=== PATIENT | male | born 1945 | race Caucasian/White ===

== ENCOUNTER 2022-08-20 00:58 | Outpatient (REF) | payer MEDICARE, MEDICAID, SELFPAY ==
[2022-08-20 12:27] LABS: Erythrocyte Sedimentation Rate 5 mm/hr (<=20)
[2022-08-20 17:25] LABS: Prostate Specific Antigen Scrn 1.06 ng/mL (<=4.00)
[2022-08-20 21:25] LABS: Alanine Aminotransferase 22 U/L (16-63); Albumin Globulin Ratio 1.1; Albumin Level 3.5 g/dL (3.4-5.0); Alkaline Phosphatase 46 U/L (46-116); Aspartate Amino Transferase 17 U/L (15-37); Bilirubin Direct 0.2 mg/dL (0.0-0.2); Bilirubin Total 1.1 mg/dL (0.2-1.0); Globulin 3.1 g/dL; Thyroid Stimulating Hormone 2.118 uIU/mL (0.358-3.740); Total Protein 6.6 g/dL (6.4-8.2); Uric Acid 4.6 mg/dL (3.5-7.2)
[2022-08-20 23:43] LABS: Estimated Average Glucose 146 mg/dL; Glycohemoglobin A1C 6.7 % (4.5-6.2)
== END 2022-08-20 00:59 ==
LOC: LAB 00:58
DX: E11.22 Type 2 diabetes mellitus with diabetic chronic kidney disease (principal); N18.9 Chronic kidney disease, unspecified
CPT/HCPCS: 36415; 80076; 83036; 83880; 84443; 84550; 85652; G0103

== ENCOUNTER 2023-01-05 01:10 | Outpatient (REF) | payer MEDICARE, MEDICAID, SELFPAY ==
[2023-01-05 08:13] LABS: Estimated Average Glucose 143 mg/dL; Glycohemoglobin A1C 6.6 % (4.5-6.2)
[2023-01-05 08:25] LABS: Alanine Aminotransferase 24 U/L (16-63); Albumin Globulin Ratio 1.1; Albumin Level 3.8 g/dL (3.4-5.0); Alkaline Phosphatase 55 U/L (46-116); Aspartate Amino Transferase 14 U/L (15-37); Bilirubin Direct 0.2 mg/dL (0.0-0.2); Bilirubin Total 1.2 mg/dL (0.2-1.0); Chol HDL Ratio 2.5; Cholesterol 146 mg/dL (<=200); Globulin 3.5 g/dL; HDL Cholesterol 58 mg/dL (40-60); LDL Cholesterol Calculated 64.8 mg/dL; Total Protein 7.3 g/dL (6.4-8.2); Triglycerides 116 mg/dL (<=150); VLDL CHOLESTEROL 23.2 mg/dL
[2023-01-05 08:36] LABS: Erythrocyte Sedimentation Rate 18 mm/hr (<=20)
== END 2023-01-05 01:11 | disposition home or self-care (01) ==
LOC: LAB 01:10
PROVIDERS: Visit Provider Internal Medicine
DX: I10 Essential (primary) hypertension (principal)
CPT/HCPCS: 36415; 80061; 80076; 83036; 83880; 85652

== ENCOUNTER 2023-02-23 09:24 | Outpatient (REF) | payer MEDICARE, MEDICAID, SELFPAY ==
[2023-02-23 10:22] LABS: Basophils Absolute Auto 0.1 10^3/uL (0.0-0.1); Basophils Percent Auto 1.2 % (0.2-2.0); Eosinophils Absolute Auto 0.4 10^3/uL (0.0-0.7); Eosinophils Percent Auto 6.6 % (0.9-7.0); Hematocrit 44.5 % (42.0-54.0); Hemoglobin 14.6 g/dL (14.0-18.0); Immature Granulocytes Abs Auto 0.02 10^3/uL (0.00-0.03); Immature Granulocytes Pct Auto 0.3 % (0.0-0.5); Lymphocytes Absolute Auto 1.1 10^3/uL (1.2-3.8); Lymphocytes Percent Auto 19.1 % (20.5-60.0); Mean Corpuscular HGB Conc 32.8 g/dL (29.9-35.2); Mean Corpuscular Hemoglobin 31.5 pg (25.9-34.0); Mean Corpuscular Volume 96.1 fL (80.0-94.0); Mean Platelet Volume 8.9 fL (9.5-13.5); Monocytes Absolute Auto 0.4 10^3/uL (0.3-0.8); Monocytes Percent Auto 7.4 % (1.7-12.0); Neutrophils Absolute Auto 3.9 10^3/uL (1.4-6.5); Neutrophils Percent Auto 65.4 % (43.0-75.0); Platelet Count 206 10^3/uL (150-450); Red Blood Count 4.63 10^6/uL (4.70-6.10); Red Cell Distribution Width 13.4 % (11.0-15.0); White Blood Count 5.9 10^3/uL (4.0-11.0)
[2023-02-23 10:56] LABS: Alanine Aminotransferase 26 U/L (16-63); Anion Gap 13.8; Aspartate Amino Transferase 18 U/L (15-37); Carbon Dioxide 25.5 mmol/L (21.0-32.0); Chloride 103 mmol/L (98-107); Chol HDL Ratio 2.2; Cholesterol 120 mg/dL (<=200); Estimated GFR (African America >60 (>=60); Estimated GFR (Non-African Ame >60 (>=60); HDL Cholesterol 55 mg/dL (40-60); LDL Cholesterol Calculated 43.8 mg/dL; Potassium 4.3 mmol/L (3.5-5.1); Sodium 138 mmol/L (136-145); Triglycerides 106 mg/dL (<=150); VLDL CHOLESTEROL 21.2 mg/dL
[2023-02-23 12:04] LABS: Estimated Average Glucose 143 mg/dL; Glycohemoglobin A1C 6.6 % (4.5-6.2)
== END 2023-02-23 09:25 | disposition home or self-care (01) ==
LOC: LAB 09:24
PROVIDERS: PCP Internal Medicine; Visit Provider Internal Medicine
DX: I10 Essential (primary) hypertension (principal)
CPT/HCPCS: 36415; 80051; 80061; 82565; 83036; 84450; 84460; 84520; 85025

== ENCOUNTER 2023-07-01 01:20 | Outpatient (REF) | payer MEDICARE, MEDICAID, SELFPAY ==
--- OUTSIDE RECORDS SUMMARY | 2023-07-01 01:23 | XMS_ITS | CCD ---
Author Organization [facility] Care Team Providers Care Senior Payroll Manager Name Role Phone WaleJR Eliud Primary Care Provider MD Ana María Valiente Attending Provider ALLEN FUNK Attending Unavailable Medications Current Medications Medication Drug Class(es) Dates Sig (Normalized) Sig (Original) Acetaminophen (2 sources) Start: 03-03-2019 take 2 tablets by mouth every four hours Acetaminophen Active 2 TAB PO Q4H March 03, 2019 5:56pm acetaminophen 325 mg / HYDROcodone bitartrate 5 mg oral tablet (2 sources) Opioid Agonist Start: 03-03-2019 take 0.5 tablet by mouth every six hours Hydrocodone-Aceta minophen Active 0.5 TAB PO Q6H March 03, 2019 5:56pm albuterol 0.83 mg/ml inhalation solution (2 sources) beta2-Adrenergic Agonist Start: 03-03-2019 take 1 [IU] by inhalation every six hours Albuterol Sulfate Active 1 UNIT INHALATION Q6H March 03, 2019 5:56pm docusate sodium 100 mg oral tablet (2 sources) Start: 03-03-2019 take 100 mg by mouth twice daily Docusate Sodium Active 100 MG PO Twice daily March 03, 2019 5:56pm DULoxetine 60 mg delayed release oral capsule (2 sources) Serotonin and Norepinephrine Reuptake Inhibitor Start: 03-03-2019 take 60 mg by mouth once daily at bedtime Duloxetine Active 60 MG PO Daily at bedtime March 03, 2019 5:56pm dutasteride 0.5 mg oral capsule (2 sources) 5-alpha Reductase Inhibitor Start: 03-03-2019 take 0.5 mg by mouth once daily Dutasteride Active 0.5 MG PO Daily March 03, 2019 5:56pm empagliflozin 10 mg oral tablet (2 sources) Sodium-Glucose Cotransporter 2 Inhibitor Start: 03-03-2019 take 10 mg by mouth once daily Empagliflozin Active 10 MG PO Daily March 03, 2019 5:56pm 12 hr guaiFENesin 600 mg extended release oral tablet (2 sources) Start: 03-03-2019 take 2 tablets by mouth twice daily Guaifenesin (Mucinex) 600 mg Tablet Extended Release 12hr Active 2 TAB PO Twice daily March 03, 2019 5:56pm lisinopril 20 mg oral tablet (2 sources) Angiotensin Converting Enzyme Inhibitor Start: 03-03-2019 take 20 mg by mouth twice daily Lisinopril Active 20 MG PO Twice daily March 03, 2019 5:56pm magnesium hydroxide 80 mg/ml oral suspension (2 sources) Start: 03-03-2019 take 1 mL by mouth once daily Magnesium Hydroxide (Milk Of Magnesia) 400 mg/5 mL Suspension Active 30 ML PO Daily March 03, 2019 5:56pm Czemj-Hltsp-Fetul-Sibe justino Fir (Vicks Vapoinhaler) Inhaler (2 sources) Start: 03-03-2019 Eeqwq-Iigwp-Wecas -Siberian Fir (Vicks Vapoinhaler) Inhaler Active 1 SPRAY INTRANASAL As Directed March 03, 2019 5:56pm 24 hr mirabegron 50 mg extended release oral tablet (2 sources) beta3-Adrenergic Agonist Start: 03-03-2019 take 50 mg by mouth once daily Mirabegron Active 50 MG PO Daily March 03, 2019 5:56pm nitroglycerin 0.4 mg sublingual tablet (2 sources) Nitrate Vasodilator Start: 03-03-2019 Nitroglycerin Active 0.4 MG SUBLINGUAL EVERY 5 MINUTES March 03, 2019 5:56pm ondansetron 4 mg disintegrating oral tablet (2 sources) Serotonin-3 Receptor Antagonist Start: 03-03-2019 take 1 tablet by mouth every six hours Ondansetron Active 1 TAB PO Q6H March 03, 2019 5:56pm microencapsulated potassium chloride 20 meq extended release oral tablet (2 sources) Start: 03-03-2019 take 40 mEq by mouth once daily Potassium Chloride Active 40 MEQ PO Daily March 03, 2019 5:56pm rosuvastatin calcium 20 mg oral tablet (2 sources) HMG-CoA Reductase Inhibitor Start: 03-03-2019 take 20 mg by mouth once daily at bedtime Rosuvastatin Active 20 MG PO Daily at bedtime March 03, 2019 5:56pm tamsulosin hydrochloride 0.4 mg oral capsule (2 sources) alpha-Adrenergic Floridalma Start: 03-03-2019 take 0.4 mg by mouth once daily Tamsulosin Active 0.4 MG PO Daily March 03, 2019 5:56pm Completed/Discontinued Medications Medication Drug Class(es) Dates Sig (Normalized) Sig (Original) apixaban 5 mg oral tablet (2 sources) Factor Xa Inhibitor Start: 03-03-2019 End: 03-08-2019 take 1 tablet by mouth twice daily Apixaban (Eliquis) 5 mg tablet Discontinued 5 MG PO Twice daily March 03, 2019 5:56pm March 08, 2019 2:30pm Results Test Name Value Interpretation Reference Range Facility Superficial Wound Cultureon 08-28-2021 Superficial Wound Culture ORGANISM: Staphylococcus aureus (O:STAAUR) Quantity of Growth Moderate Growth Aerobic HERIBERTO Charge (PC45) SUSCEPTIBILITY ORGANISM: O:STAAUR ANTIBIOTIC INTERPRETATION HERIBERTO Amoxacillin/K Clavulanate S <4/2 Ampicillin KEILY >8 Ampicillin/Sulbactam S <8/4 Azithromycin S <2 Cefazolin S <8 Ceftaroline S <0.5 Ceftriaxone S <8 Ciprofloxacin S <1 Clindamycin S <0.5 Daptomycin S <1 Erythromycin S <0.25 Levofloxacin S <1 Linezolid S 4 Meropenem S <4 Oxacillin S 0.5 Penicillin KEILY >8 Piperacillin/Tazobactam S <4 Rifampin S <1 Tetracycline S <4 Trimethoprim/Sulfamethoxazol e S <0.5/9.5 Vancomycin S 1 S = SUSCEPTIBLE I = INTERMEDIATE R = RESISTANT BLANK = DATA NOT AVAILABLE, OR DRUG NOT ADVISABLE OR TESTED R* = RESISTANCE DUE TO EXTENDED SPECTRUM BETA-LACTAMASES ESBL = EXTENDED SPECTRUM BETA-LACTAMASE TFG = THYMIDINE-DEPENDENT STRAIN KEILY = BETA-LACTAMASE POSITIVE IB = INDUCIBLE BETA-LACTAMASE. APPEARS IN PLACE OF 'S' WITH SPECIES KNOWN TO POSSESS INDUCIBLE BETA-LACTAMASES. POTENTIALLY THEY MAY BECOME RESISTANT TO ALL B-LACTAM DRUGS. PERFORMED BY: [place] [address] PATHOLOGIST COLLAR STITCHER MERVIN ADHIKARI M.D. [facility] Comment on above: Performed By: #### CUSUP #### [address] Bacteria identified Aer cx N om (Unsp spec)Ordered By: Ana María Valiente on 08-21-2021 Superficial Wound Culture Staphylococcus aureus [facility] Superficial Wound Cultureon 08-21-2021 Superficial Wound Culture ORGANISM: Staphylococcus aureus (O:STAAUR) Quantity of Growth Heavy Growth Aerobic HERIBERTO Charge (PC45) SUSCEPTIBILITY ORGANISM: O:STAAUR ANTIBIOTIC INTERPRETATION HERIBERTO Amoxacillin/K Clavulanate S <4/2 Ampicillin KEILY >8 Ampicillin/Sulbactam S <8/4 Azithromycin S <2 Cefazolin S <8 Ceftaroline S <0.5 Ceftriaxone S <8 Ciprofloxacin S <1 Clindamycin S <0.5 Daptomycin S <1 Erythromycin S <0.25 Levofloxacin S <1 Linezolid S <2 Meropenem S <4 Oxacillin S <0.25 Penicillin KEILY >8 Piperacillin/Tazobactam S <4 Rifampin S <1 Tetracycline S <4 Trimethoprim/Sulfamethoxazol e S <0.5/9.5 Vancomycin S <0.5 S = SUSCEPTIBLE I = INTERMEDIATE R = RESISTANT BLANK = DATA NOT AVAILABLE, OR DRUG NOT ADVISABLE OR TESTED R* = RESISTANCE DUE TO EXTENDED SPECTRUM BETA-LACTAMASES ESBL = EXTENDED SPECTRUM BETA-LACTAMASE TFG = THYMIDINE-DEPENDENT STRAIN KEILY = BETA-LACTAMASE POSITIVE IB = INDUCIBLE BETA-LACTAMASE. APPEARS IN PLACE OF 'S' WITH SPECIES KNOWN TO POSSESS INDUCIBLE BETA-LACTAMASES. POTENTIALLY THEY MAY BECOME RESISTANT TO ALL B-LACTAM DRUGS. PERFORMED BY: [place] [id number] PATHOLOGIST COLLAR STITCHER MERVIN ADHIKARI M.D. [facility] Comment on above: Performed By: #### BETTY #### [facility] [address] Na 02-09-2017 CNOV Office Visit (WHITNEY) --HANSLAWSON Lieberman ([id number]) 1945 MDate Time Provider Tuifowgyoz68/27/17 JORDAN GARCIA (PA) During your visit today, we recorded the following information about you: Temperature Pulse Respiration Blood pressure 98.6 degrees 61/minute 18/minute 138/59Paulesantos Garcia PA-C 02/09/2017 2:24 PM AddendumPatient Name: Lawson Lieberman FedericoRN: [id number] For Visit: Assisted Visit at [facility] for a follow up fordischarge visit.Past Medical Hx: No past medical history on file.Subjective Data:Pt is found resting in room alert and cooperative for exam. Patient reportsthat he is doing well and is anxious to go to assisted living. He has mildleft hemiplegia but transfers well and can walk short distances with walker.He denies chest pain or sob. He eats well and bowels are regular. He deniespain. Medically has been stable for some time and blood sugars are wellcontrolled.Review of SystemAll others reviewed and negativeFamily/Social History: Unchanged, see HANDamp;P.Medications: REVIEWED IN GROUP HOME CHARTObjective Data:BP 138/59 Pulse 61 Temp 37 ?C (98.6 ?F) Resp 18General Appearance: well appearing, alert, in no acute distressSkin: Skin color, texture, turgor normal, no suspicious rashes or lesionsHead: normalRespiratory: Lungs clear to auscultation. No wheezing, rhonchi, ralesHeart: irreg irregAbdomen: Abdomen soft, non-tender. Bowel sounds normal. No masses, organomegalyExtremeties: No deformities, edema, skin discoloration, clubbing or cyanosis.Good capillary refill.Mild left hemiplegiaAssessment/Plan:I have reviewed this patient's medications and treatment plan, as well as mostrecent labwork.ASSESSMENT/PLAN:1. Hemiparesis affecting left side as late effect of cerebrovascular accident(HCC) - ICD9: 438.20, ICD10: I69.354 (primary diagnosis)Cont risk factor reduction and monitor closely. OK to dc to assisted livingwhen arrangements can be made. Rx written for wc and raised toilet seat withbars.2. Chronic atrial fibrillation (HCC) - ICD9: 427.31, ICD10: I48.2Rate controlled; cont anticoag tx3. Type 2 diabetes mellitus with complication, without long-term current use ofinsulin (HCC) - ICD9: 250.90, ICD10: E11.8Controlled.- Continue current medications; Hgb a1c stable at 6.0.4. Essential hypertension - ICD9: 401.9, ICD10: I10- good control- Continue current medication(s)5. Hyperlipidemia, unspecified hyperlipidemia type - ICD9: 272.4, ICD10: E78.5- good control- Continue current medication.ANDgt;30 minutes spent in the discharge process on this patientPauleSTEVE Watson-CI'll make no further changes at this time. We will continue to monitor foroverall comfort, function and safety.Signature: STEVE Reinoso-CDate: February 09, 2017Allergies As of Date: 02/09/2017(Not on File)Date Reviewed: Never ReviewedReason for Visit: discharge from facility [Other]Primary Visit Diagnosis:Hemiparesis affecting left side as late effect of cerebrovascular accident (HCC) [I69.354] Other Visit Diagnoses:Chronic atrial fibrillation (HCC) [I48.2] Type 2 diabetes mellitus with complication, without long-term current use of insulin (HCC) [E11.8] Essential hypertension [I10] Hyperlipidemia, unspecified hyperlipidemia type [E78.5]Problem List As Of Date 02/09/2017 Noted Resolved Hip strain [S76.019A] INVALID FOR* Chronic daily headache [R51] INVALID FOR* Diabetes mellitus without complication (HCC) [E*INVALID FOR* Paralytic syndrome, late effect of cerebrovascu*INVALID FOR* Benign hypertensive heart disease without heart*INVALID FOR* Primary osteoarthritis of right knee [M17.11] INVALID FOR* Dental abscess [K04.7] INVALID FOR* Chronic atrial fibrillation (HCC) [I48.2] INVALID FOR* Hypotension [I95.9] INVALID FOR* Olecranon bursitis of right elbow [M70.21] INVALID FOR* Benign prostatic hyperplasia with lower urinary*INVALID FOR* Essential hypertension [I10] INVALID FOR* Hemiparesis affecting left side as late effect *INVALID FOR* Status:Closed by JORDAN GARCIA on 02/09/17 [facility] PROGRESSon 02-09-2017 PROGRESS HNO ID: [id number] thor: Jordan (Steve) GrantService: (none)Author Type: Physician AssistantType: Progress NotesFiled: 02/09/2017 2:24 PMNote Text:Patient Name: Lawson DesirilvyMRN: [id number] For Visit: Assisted Visit at [facility] for a follow upfor discharge visit.Past Medical Hx: No past medical history on file.Subjective Data:Pt is found resting in room alert and cooperative for exam. Patientreports that he is doing well and is anxious to go to assisted living. Hehas mild left hemiplegia but transfers well and can walk short distanceswith walker. He denies chest pain or sob. He eats well and bowels areregular. He denies pain. Medically has been stable for some time andblood sugars are well controlled.Review of SystemAll others reviewed and negativeFamily/Social History: Unchanged, see HANDP.Medications: REVIEWED IN GROUP HOME CHARTObjective Data:BP 138/59 Pulse 61 Temp 37 ?C (98.6 ?F) Resp 18General Appearance: well appearing, alert, in no acute distressSkin: Skin color, texture, turgor normal, no suspicious rashes or lesionsHead: normalRespiratory: Lungs clear to auscultation. No wheezing, rhonchi, ralesHeart: irreg irregAbdomen: Abdomen soft, non-tender. Bowel sounds normal. No masses,organomegalyExtremeti es: No deformities, edema, skin discoloration, clubbing orcyanosis. Good capillary refill.Mild left hemiplegiaAssessment/Plan:I have reviewed this patient's medications and treatment plan, as well asmost recent labwork.ASSESSMENT/PLAN:1. Hemiparesis affecting left side as late effect of cerebrovascularaccident (HCC) - ICD9: 438.20, ICD10: I69.354 (primary diagnosis)Cont risk factor reduction and monitor closely. OK to dc to assistedliving when arrangements can be made. Rx written for wc and raised toiletseat with bars.2. Chronic atrial fibrillation (HCC) - ICD9: 427.31, ICD10: I48.2Rate controlled; cont anticoag tx3. Type 2 diabetes mellitus with complication, without long-term currentuse of insulin (HCC) - ICD9: 250.90, ICD10: E11.8Controlled.- Continue current medications; Hgb a1c stable at 6.0.4. Essential hypertension - ICD9: 401.9, ICD10: I10- good control- Continue current medication(s)5. Hyperlipidemia, unspecified hyperlipidemia type - ICD9: 272.4, ICD10:E78.5- good control- Continue current medication.>30 minutes spent in the discharge process on this patientPaulette STEVE Garcia-CI'll make no further changes at this time. We will continue to monitor foroverall comfort, function and safety.Signature: STEVE Reinoso-CDate: February 09, 2017 Normal [facility] PROGRESSon 01-27-2017 PROGRESS HNO ID: [id number] thor: Giulia Casas ErenService: (none)Author Type: PhysicianType: Progress NotesFiled: 01/30/2017 10:27 AMNote Text: [facility] NOTENAME: LAWSON MAXWELLTRISTANWILNER NO.: [id number] OF SERVICE: 01/27/2017[facility] GardensDATE OF : 1945He is sitting up. He is in good spirits. He has no complaints at thistime. His appetite has been good. He denies any shortness of breath orchest pain. Nursing reports no problems.MEDICATIONS: Reviewed.EXAMINATION: Afebrile, vital signs are stable. HEENT: Intact. Lungs:Clear. Heart: Regular. Abdomen: Soft and nontender. Bowel soundspresent. Extremities: With trace edema. He does have left hemiparesis.IMPRESSION:1. Diabetes mellitus, type 2. - Blood sugars have been within a goodrange. Most recent hemoglobin A1c level is doing very well. 2.Hypertension. His blood pressures have been within good range. 3.History of atrial fibrillation. - He has been rate controlled. He is onEliquis therapy.4. Previous cerebrovascular accident. - No evidence for recurrence orextension. Monitor neurologic status closely. 5. Hyperlipidemia. -Continue with current pravastatin therapy.DICTATED BY: Giulia Hollis MDIAE/AcusisD:01/27/2017 JOB# [id number]:[facility]lectronickaiser [facility] Signed by Giulia Hollis MD at 01/30/2017 10:19:29 Normal [facility] CNOVon 12-26-2016 CNOV Office Visit (WHITNEY) --LAWSON MAXWELL ([id number]) 1945 [facility] Time Provider Wkyjmtawsh52/13/17 JORDAN GARCIA (PA) During your visit today, we recorded the following information about you: Temperature Pulse Respiration Blood pressure 98.4 degrees 64/minute 18/minute 112/70Paulettla Garcia PA-C 12/26/2016 2:27 PM SignedPatient Name: Lawson Lieberman FinavyMRN: [id number] For Visit: Assisted Visit at [facility] for a monthly visit.Past Medical Hx: No past medical history on file.Subjective Data:Pt is found resting in room alert and cooperative for exam. Patient reportsthat he is doing well. He is s/p left eye surgery about 1 month ago forretinal detachment. He thinks the vision is gradually improving. He tells methat he will be moving to assisted living before the year is out and is veryhappy about this. Denies CP, SOB. States appetite is good and bowels areregular. No urinary issues.Review of SystemGENERAL: No weight loss, malaise or fevers.PAIN: No 0 on a scale of 0 to 10RESPIRATORY: Negative for cough, hemoptysis, wheezing, COPD, dyspnea orshortness of breathCARDIOVASCULAR: Negative for chest pain, leg swelling, CHF or palpitationsGI: Negative for abdominal discomfort, nausea, vomiting, dysphagia,odynophagia, hematemesis, hematochezia, melena, change in bowel habitsGU: Negative for dysuria, urgency, frequency and incontinenceMUSCULOSKELETAL: Negative for joint pain or swelling, back pain or muscle painAll others reviewed and negativeFamily/Social History: Unchanged, see HANDamp;P.Medications: REVIEWED IN GROUP HOME CHARTObjective Data:BP 112/70 Pulse 64 Temp 36.9 ?C (98.4 ?F) Resp 18General Appearance: well appearing, alert, in no acute distress, lefthemiplegiaHead: mouth moist, normalRespiratory: Lungs clear to auscultation. No wheezing, rhonchi, ralesHeart: RRR without murmur, gallop, or rubs. No ectopyAbdomen: Abdomen soft, non-tender. Bowel sounds normal. No masses, organomegalyExtremeties: No deformities, edema, skin discoloration, clubbing or cyanosis.Good capillary refill.Neurologic: left hemiplegiaAssessment/Plan:I have reviewed this patient's medications and treatment plan, as well as mostrecent labwork.ASSESSMENT/PLAN:1. Hemiparesis affecting left side as late effect of cerebrovascular accident(HCC) - ICD9: 438.20, ICD10: I69.354 (primary diagnosis)Cont risk factor reduction. No new issues2. Chronic atrial fibrillation (HCC) - ICD9: 427.31, ICD10: I48.2Clinically sinus on amiodarone and eliquis, cont same3. Essential hypertension - ICD9: 401.9, ICD10: I10- good control- Continue current medication(s)4. Type 2 diabetes mellitus with complication, without long-term current use ofinsulin (HCC) - ICD9: 250.90, ICD10: E11.8Controlled.- No meds5. Hyperlipidemia, unspecified hyperlipidemia type - ICD9: 272.4, ICD10: E78.5- good control- Continue current medication.STEVE Reinoso-CI'll make no further changes at this time. We will continue to monitor foroverall comfort, function and safety.Signature: STEVE Reinoso-CDate: December 26, 2016Allergies As of Date: 12/26/2016(Not on File)Date Reviewed: Never ReviewedReason for Visit: monthly visit [Other]Primary Visit Diagnosis:Hemiparesis affecting left side as late effect of cerebrovascular accident (HCC) [I69.354] Other Visit Diagnoses:Chronic atrial fibrillation (HCC) [I48.2] Essential hypertension [I10] Type 2 diabetes mellitus with complication, without long-term current use of insulin (HCC) [E11.8] Hyperlipidemia, unspecified hyperlipidemia type [E78.5]Problem List As Of Date 12/26/2016 Noted Resolved Hip strain [S76.019A] INVALID FOR* Chronic daily headache [R51] INVALID FOR* Diabetes mellitus without complication (HCC) [E*INVALID FOR* Paralytic syndrome, late effect of cerebrovascu*INVALID FOR* Benign hypertensive heart disease without heart*INVALID FOR* Primary osteoarthritis of right knee [M17.11] INVALID FOR* Dental abscess [K04.7] INVALID FOR* Chronic atrial fibrillation (HCC) [I48.2] INVALID FOR* Hypotension [I95.9] INVALID FOR* Olecranon bursitis of right elbow [M70.21] INVALID FOR* Benign prostatic hyperplasia with lower urinary*INVALID FOR* Essential hypertension [I10] INVALID FOR* Hemiparesis affecting left side as late effect *INVALID FOR* Status:Closed by JORDAN GARCIA on 12/26/16 [facility] PROGRESSon 12-26-2016 PROGRESS HNO ID: [id number] thor: Jordan (Steve) GrantService: (none)Author Type: Physician AssistantType: Progress NotesFiled: 12/26/2016 2:27 PMNote Text:Patient Name: Lawson DesirilvyMRN: [id number] For Visit: Assisted Visit at [facility] for a monthlyvisit.Past Medical Hx: No past medical history on file.Subjective Data:Pt is found resting in room alert and cooperative for exam. Patientreports that he is doing well. He is s/p left eye surgery about 1 monthago for retinal detachment. He thinks the vision is gradually improving.He tells me that he will be moving to assisted living before the year isout and is very happy about this. Denies CP, SOB. States appetite isgood and bowels are regular. No urinary issues.Review of SystemGENERAL: No weight loss, malaise or fevers.PAIN: No 0 on a scale of 0 to 10RESPIRATORY: Negative for cough, hemoptysis, wheezing, COPD, dyspnea orshortness of breathCARDIOVASCULAR: Negative for chest pain, leg swelling, CHF or palpitationsGI: Negative for abdominal discomfort, nausea, vomiting, dysphagia,odynophagia, hematemesis, hematochezia, melena, change in bowel habitsGU: Negative for dysuria, urgency, frequency and incontinenceMUSCULOSKELETAL: Negative for joint pain or swelling, back pain or musclepainAll others reviewed and negativeFamily/Social History: Unchanged, see HANDP.Medications: REVIEWED IN GROUP HOME CHARTObjective Data:BP 112/70 Pulse 64 Temp 36.9 ?C (98.4 ?F) Resp 18General Appearance: well appearing, alert, in no acute distress, lefthemiplegiaHead: mouth moist, normalRespiratory: Lungs clear to auscultation. No wheezing, rhonchi, ralesHeart: RRR without murmur, gallop, or rubs. No ectopyAbdomen: Abdomen soft, non-tender. Bowel sounds normal. No masses,organomegalyExtremeti es: No deformities, edema, skin discoloration, clubbing orcyanosis. Good capillary refill.Neurologic: left hemiplegiaAssessment/Plan:I have reviewed this patient's medications and treatment plan, as well asmost recent labwork.ASSESSMENT/PLAN:1. Hemiparesis affecting left side as late effect of cerebrovascularaccident (HCC) - ICD9: 438.20, ICD10: I69.354 (primary diagnosis)Cont risk factor reduction. No new issues2. Chronic atrial fibrillation (HCC) - ICD9: 427.31, ICD10: I48.2Clinically sinus on amiodarone and eliquis, cont same3. Essential hypertension - ICD9: 401.9, ICD10: I10- good control- Continue current medication(s)4. Type 2 diabetes mellitus with complication, without long-term currentuse of insulin (HCC) - ICD9: 250.90, ICD10: E11.8Controlled.- No meds5. Hyperlipidemia, unspecified hyperlipidemia type - ICD9: 272.4, ICD10:E78.5- good control- Continue current medication.STEVE Reinoso-CI'll make no further changes at this time. We will continue to monitor foroverall comfort, function and safety.Signature: STEVE Reinoso-CDate: December 26, 2016 Normal [facility] PROGRESSon 12-01-2016 PROGRESS HNO ID: [id number] thor: Giulia Ngoervice: (none)Author Type: PhysicianType: Progress NotesFiled: 12/02/2016 5:17 PMNote Text: [facility] NOTENAME: ZONIA MAXWELL NO.: [id number] OF SERVICE: 12/01/2016[facility] GardensDATE OF : 1945He is resting in his reclining chair. He states that he did not sleepwell last night. He has had no breathing problems or chest pain. Hisappetite has been fairly good. Nursing reports no other problems.MEDICATIONS: Reviewed.PHYSICAL EXAMINATION: Afebrile, vital signs stable. HEENT: Intact.Lungs: Clear. Heart: Regular. Abdomen: Soft and nontender. Bowelsounds present. Extremities: With trace edema. He does have lefthemiparesis.IMPRESSION:1 . History of atrial fibrillation - he has been rate controlled. Hedoes have Eliquis therapy.2. Hypertension - her blood pressures have been within a fair range.3. Diabetes mellitus type 2 - we will continue to monitor his bloodsugars. Most recent hemoglobin A1c level is within a very good range.4. Previous cerebrovascular accident - monitor for signs of recurrenceor extension.5. Hyperlipidemia - she is on pravastatin therapy.DICTATED BY: Giulia Hollis MDIAE/AcusisD:12/01/2016 JOB# [id number]:[facility]lectronickaiser [facility] Signed by Giulia Hollis MD at 12/02/2016 17:13:10 Normal [facility] PROGRESSon 11-01-2016 PROGRESS HNO ID: [id number] thor: Maggie Westfall (Kay) Hubert: (none)Author Type: Nurse PractitionerType: Progress NotesFiled: 11/05/2016 12:57 PMNote Text: [facility] NOTENAME: ROXTIBURCIOLAWSON NESBITTREGINA NO.: [id number] OF SERVICE: [facility]2016[facility] 1945[facility] today after review of his labs as well as an x-ray. The patient washaving hip and back pain. X-ray indicates he has degenerative jointdisease, but no fractures. I am encouraging him to attend physicaltherapy to see if that helps. Otherwise, he is alert and oriented. Nosigns of any illness. Vital signs are stable. No fevers.REVIEW OF SYSTEMS: He can ambulate with assistance, but he needs [id number] to walk a few steps. He is a mostly worried about chronicpain. He is oriented times 3 with short-term memory loss. No chest painor shortness of breath. Bowel and bladder function are intact.PHYSICAL EXAMINATION: Bowel sounds are times 4. Voids in adequateamount without pain. Hearing is impaired. Vision is intact. Heart isregular. Lungs are clear.PLAN: At this time is to encourage him to attend physical therapy.DICTATED BY: JANEY SKINNER/AcusisD:11/01/2016 JOB# [id number]:[facility]y [facility] Signed by MAYITO KRAFT CNP at 11/05/2016 12:43:45 Normal [facility] CNOVon 10-30-2016 CNOV Office Visit (WHITNEY) --LAWSON MAWXELL ([id number]) 1945 MDate Time Provider Department10/30/16 RUT DOMINGUEZ (KAY) WHITNEY During your visit today, we recorded the following information about you: Temperature Pulse Respiration Blood pressure 97.4 degrees 62/minute 18/minute 142/70 Weight 98.4 kgRut Dominguez CNP 10/30/2016 4:33 PM SignedPatient Name: Lawson CaballeroRN: [id number] For Visit: Assisted Visit at [facility] for a Acute for Left hip and lower back painPast Medical Hx: HTN, HPL, CVA w L paresis, Chr Afib, depression?Subjective Data:HX of stroke w L paresisRecent c/o increasing L deanna pain w Limited activity and difficulty performedADL's. no other ssx.R in bed, AANDamp;O, pleasant. C/o L deanna ( pointed at L sides to hip and lowerback pain) over past 2-3 wks. Denies any injury, fall. No pain when deepbreath, no change in urine or bowel habit. No N/V, abd pain or otherdiscomfort. Pain worse when changing position/ taking tylenol w not much helpanymore. Denies mood change. No change in appetite. Sleep ok except pain whenturning positionNo reports of or complaints of change in function or behaviors, chest pain ordiscomfort, palpitations, shortness of breath, cough or cold symptoms, changein bowel habit, abdominal pain, nausea or vomiting. No complaints ofheadaches, dizziness or lightheadedness. Denies dysuria or change in urinatinghabit. No fevers.?Family/Social History: Unchanged, see HANDamp;P.?Medications: see current medication list in [facility] chart, reviewed(Medications in [facility] may not accurate, please see update in [facility] chart)?Objective Data:BP 142/70 Pulse 62 Temp 36.3 ?C (97.4 ?F) Resp 18 Wt 98.4 kg (217 lb) SpO2 95%General: Alert, no distress, comfortable, and cooperativeSkin: warm dry intact.Chest: good resp effort, lung clear to auscultation bilaterallyCardiac: normal S1S2, no murmur,Abdomen: Soft, non tender, +ve BSBack: tender at LS spine and L hip (SI joint) w muscle spasmExtremities: L paresisPulses: 2+radial,Neuro: AANDamp;oX 3Psy: depressed?The reminder of the physical exam is noncontributory.?Assessment/ Plan:I have reviewed this patient's medications and treatment plan, as well as mostrecent labwork.ASSESSMENT/PLAN:1. Left hip pain - ICD9: 719.45, ICD10: M25.552 (primary diagnosis)2. Chronic left-sided low back pain, with sciatica presence unspecified - ICD9:724.2, 338.29, ICD10: M54.5, G89.293. Pain after cerebrovascular accident (CVA) - ICD9: 438.89, 780.96, ICD10:I69.398, R524. Hemiparesis affecting left side as late effect of cerebrovascular accident(HCC) - ICD9: 438.20, ICD10: I69.3545. Essential hypertension - ICD9: 401.9, ICD10: H09Mfdnk () / tab bid + q6 prnCont' current meds regimenLab: ua+ c/sLS spine ANDamp; hip xrayPT consultObserve condition ANDamp; behaviorDiscuss plan of care w R ANDamp; staffI'll make no further changes at this time. We will continue to monitor foroverall comfort, function and safety.Signature: Rut Dominguez CNPDate: October 30, 2016Allergies As of Date: 10/30/2016(Not on File)Date Reviewed: Never ReviewedPrimary Visit Diagnosis:Left hip pain [M25.552] Other Visit Diagnoses:Chronic left-sided low back pain, with sciatica presence unspecified [M54.5, G89.29] Pain after cerebrovascular accident (CVA) [I69.398, R52] Hemiparesis affecting left side as late effect of cerebrovascular accident (HCC) [I69.354] Essential hypertension [I10]Problem List As Of Date 10/30/2016 Noted Resolved Hip strain [S76.019A] INVALID FOR* Chronic daily headache [R51] INVALID FOR* Diabetes mellitus without complication (HCC) [E*INVALID FOR* Paralytic syndrome, late effect of cerebrovascu*INVALID FOR* Benign hypertensive heart disease without heart*INVALID FOR* Primary osteoarthritis of right knee [M17.11] INVALID FOR* Dental abscess [K04.7] INVALID FOR* Chronic atrial fibrillation (HCC) [I48.2] INVALID FOR* Hypotension [I95.9] INVALID FOR* Olecranon bursitis of right elbow [M70.21] INVALID FOR* Benign prostatic hyperplasia with lower urinary*INVALID FOR* Essential hypertension [I10] INVALID FOR* Hemiparesis affecting left side as late effect *INVALID FOR* Status:Closed by RUT DOMINGUEZ CNP on 10/30/16 Normal [facility] PROGRESSon 10-30-2016 PROGRESS HNO ID: [id number] thor: Rut (Kay) AngeloService: (none)Author Type: Nurse PractitionerType: Progress NotesFiled: 10/30/2016 4:33 PMNote Text:Patient Name: Lawson DesirilvyMRN: [id number] For Visit: Assisted Visit at [facility] for a Acute forL eft hip and lower back painPast Medical Hx: HTN, HPL, CVA w L paresis, Chr Afib, depression?Subjective Data:HX of stroke w L paresisRecent c/o increasing L deanna pain w Limited activity and difficultyperformed ADL's. no other ssx.R in bed, AANDO, pleasant. C/o L deanna ( pointed at L sides to hip andlower back pain) over past 2-3 wks. Denies any injury, fall. No pain whendeep breath, no change in urine or bowel habit. No N/V, abd pain or otherdiscomfort. Pain worse when changing position/ taking tylenol w not muchhelp anymore. Denies mood change. No change in appetite. Sleep ok exceptpain when turning positionNo reports of or complaints of change in function or behaviors, chest painor discomfort, palpitations, shortness of breath, cough or cold symptoms,change in bowel habit, abdominal pain, nausea or vomiting. No complaintsof headaches, dizziness or lightheadedness. Denies dysuria or change inurinating habit. No fevers.?Family/Social History: Unchanged, see HANDP.?Medications: see current medication list in [facility] chart, reviewed(Medications in [facility] may not accurate, please see update in [facility] chart)?Objective Data:BP 142/70 Pulse 62 Temp 36.3 ?C (97.4 ?F) Resp 18 Wt 98.4 kg (217lb) SpO2 95%General: Alert, no distress, comfortable, and cooperativeSkin: warm dry intact.Chest: good resp effort, lung clear to auscultation bilaterallyCardiac: normal S1S2, no murmur,Abdomen: Soft, non tender, +ve BSBack: tender at LS spine and L hip (SI joint) w muscle spasmExtremities: L paresisPulses: 2+radial,Neuro: AANDoX 3Psy: depressed?The reminder of the physical exam is noncontributory.?Assessment/ Plan:I have reviewed this patient's medications and treatment plan, as well asmost recent labwork.ASSESSMENT/PLAN:1. Left hip pain - ICD9: 719.45, ICD10: M25.552 (primary diagnosis)2. Chronic left-sided low back pain, with sciatica presence unspecified -ICD9: 724.2, 338.29, ICD10: M54.5, G89.293. Pain after cerebrovascular accident (CVA) - ICD9: 438.89, 780.96,ICD10: I69.398, R524. Hemiparesis affecting left side as late effect of cerebrovascularaccident (HCC) - ICD9: 438.20, ICD10: I69.3545. Essential hypertension - ICD9: 401.9, ICD10: E87Vxihq (5/325) 1/2 tab bid + q6 prnCont' current meds regimenLab: ua+ c/sLS spine AND hip xrayPT consultObserve condition AND behaviorDiscuss plan of care w R AND staffI'll make no further changes at this time. We will continue to monitor foroverall comfort, function and safety.Signature: Rut Dominguez CNPDate: October 30, 2016 Normal [facility] PROGRESSon 10-02-2016 PROGRESS HNO ID: [id number] thor: Arjuni Yessenia ErenService: (none)Author Type: PhysicianType: Progress NotesFiled: 10/03/2016 5:28 PMNote Text: [facility] NOTENAME: ZONIA MAXWELL NO.: [id number] OF SERVICE: 10/02/2016Ady Aguilera is up and about in his wheelchair. Overall doing quite well. He hasno complaints. His appetite has been good. He denies any shortness ofbreath or chest pain.MEDICATIONS: Reviewed.EXAMINATION: Afebrile, vital signs are stable. HEENT: Intact. Lungs:Clear. Heart: Regular. Abdomen: Soft and nontender. Extremities:With trace edema. He does have left hemiparesis.IMPRESSION:1. Previous cerebrovascular accident. - Monitor for signs of recurrenceor extension.2. Diabetes mellitus, type 2. - Blood sugars have been doing well. 3.Essential hypertension. - Continue to monitor blood pressure. 4.History of atrial fibrillation. - He has been rate controlled. He is onEliquis therapy.5. Hyperlipidemia. - He is on pravastatin therapy.DICTATED BY: Giulia Hollis MDIAE/AcusisD:10/02/2016 JOB# [id number]:Ady [facility] Signed by Giulia Hollis MD at 10/03/2016 17:10:48 Normal [facility] Encounters Encounter Date Encounter Type Care Provider Facility Start: 04-13-2023 End: 04-13-2023 ambulatory ALLEN Malou FUNK Not Available Start: 08-28-2021 End: 08-28-2021 Departed Referred JR Eliud Echevarria Work Phone: [facility] Start: 08-21-2021 End: 08-21-2021 Departed Referred JR Eliud Echevarria Work Phone: [facility] Procedures Date Procedure Procedure Detail Performing Clinician Start: 08-21-2021 Aerobic microbial culture JR Eliud Echevarria Work Phone: Plan of Treatment Date Care Activity Detail Author Start: 08-28-2021 Superficial Wound Culture Superficial Wound Culture [facility] Start: 08-21-2021 Superficial Wound Culture Superficial Wound Culture [facility] Bacteria identified in Unspecified specimen by Aerobe culture [facility] Work Phone: Payers Date Payer Category Payer Medicaid [id number] 2012 Medicare [id number] 1945 Unknown [id number] Medicaid [facility] [id number] Medicare Medicare [id number] Self-pay Self Pay [id number] Social History Date Type Detail Facility Start: 03-08-2019 Tobacco smoking stat us NDIS Never smoked tobacco (finding) [facility] Start: 1945 Sex Assigned At Male F [facility] Evaluation note Note Date & Type Note Facility Evaluation note No assessment information availa ble [facility] Work Phone: Summary Purpose Family History No Family History Records Found Relationship Condition Age at Onset Recorded Date/T nam father Presence of cardiac pacemaker Unknown Malignant neoplasm Unknown Not Specified Hypertension Unknown Advance Directives No Advanced Directives Records Found Advance Directive Response Recorded Date/ Time Advance Directives No February 3:00pm Chief Complaint and Reason for Visit Chief Complaint T81.41XA Chief Complaint T81.41XA T81.41XA Additional Source Comments (unrecognized sect ion and content) No Status Records FoundNo Status Records FoundNo Status Records Found INFORMATION SOURCE (unrecogn ized section and content) DATE CREATED AUTHOR 09/08/2017 [facility] DATE CREATED AUTHOR AUTHOR'S ORGANIZ ATION 09/10/2021 [facility] DATE CREATED AUTHOR AUTHOR'S ORGANIZ ATION 04/13/2023 [facility] Care Teams (unrecognized sec tion and content) Team Status: Inactive Member Role Status Dates Eliud Echevarria JR DO Primary Care Provider Active Ana María Valiente MD Attending Provider Active Team Status: Active Member Role Status Dates Eliud Echevarria JR DO Primary Care Provider Active Goals (unrecognized section and content) Goals may be documented in a n alternate sectionGoals may be documented in an alternate section FOR RECORDS PERTAINING TO PATIENTS WHO ARE OR HAVE BEEN ENROLLED IN A CHEMICAL DEPENDENCY/SUBSTANCEABUSE PROGRAM, SOME INFORMATION MAY BE OMITTED. This clinical summary was aggregated from multiple sources. Caution should be exercised in using it in the provision of clinical care. This summary normalizes information from multiple sources, and as a consequence, information in this document may materially change the coding, format and clinical context of patient data. In addition, data may be omitted in some cases. CLINICAL DECISIONS SHOULD BE BASED ON THE PRIMARY CLINICAL RECORDS. [facility]. provides no warranty or guarantee of the accuracy or completeness of information in this document.
[2023-07-01 07:27] LABS: Basophils Absolute Auto 0.1 10^3/uL (0.0-0.1); Basophils Percent Auto 0.9 % (0.2-2.0); Eosinophils Absolute Auto 0.2 10^3/uL (0.0-0.7); Eosinophils Percent Auto 3.9 % (0.9-7.0); Hemoglobin 15.1 g/dL (14.0-18.0); Immature Granulocytes Abs Auto 0.02 10^3/uL (0.00-0.03); Immature Granulocytes Pct Auto 0.4 % (0.0-0.5); Lymphocytes Absolute Auto 1.3 10^3/uL (1.2-3.8); Mean Corpuscular HGB Conc 32.8 g/dL (29.9-35.2); Mean Corpuscular Hemoglobin 30.8 pg (25.9-34.0); Mean Corpuscular Volume 93.9 fL (80.0-94.0); Mean Platelet Volume 8.4 fL (9.5-13.5); Monocytes Absolute Auto 0.4 10^3/uL (0.3-0.8); Monocytes Percent Auto 7.9 % (1.7-12.0); Neutrophils Absolute Auto 3.5 10^3/uL (1.4-6.5); Neutrophils Percent Auto 63.9 % (43.0-75.0); Platelet Count 222 10^3/uL (150-450); Red Cell Distribution Width 12.9 % (11.0-15.0); White Blood Count 5.4 10^3/uL (4.0-11.0)
[2023-07-01 07:36] LABS: Erythrocyte Sedimentation Rate 14 mm/hr (<=20)
[2023-07-01 07:37] LABS: Estimated Average Glucose 143 mg/dL; Glycohemoglobin A1C 6.6 % (4.5-6.2)
[2023-07-01 08:23] LABS: Alanine Aminotransferase 21 U/L (16-63); Albumin Globulin Ratio 1.1; Albumin Level 3.8 g/dL (3.4-5.0); Alkaline Phosphatase 56 U/L (46-116); Anion Gap 12.5; Aspartate Amino Transferase 18 U/L (15-37); Bilirubin Direct 0.3 mg/dL (0.0-0.2); Bilirubin Total 1.6 mg/dL (0.2-1.0); Carbon Dioxide 29.4 mmol/L (21.0-32.0); Chloride 103 mmol/L (98-107); Chol HDL Ratio 2.2; Cholesterol 126 mg/dL (<=200); Estimated GFR (African America >60 (>=60); Estimated GFR (Non-African Ame >60 (>=60); Globulin 3.6 g/dL; HDL Cholesterol 58 mg/dL (40-60); LDL Cholesterol Calculated 50.6 mg/dL; Potassium 3.9 mmol/L (3.5-5.1); Sodium 141 mmol/L (136-145); Thyroid Stimulating Hormone 4.036 uIU/mL (0.358-3.740); Total Protein 7.4 g/dL (6.4-8.2); Triglycerides 87 mg/dL (<=150); VLDL CHOLESTEROL 17.4 mg/dL
[2023-07-01 08:50] LABS: Prostate Specific Antigen Scrn 0.56 ng/mL (<=4.00)
== END 2023-07-01 01:21 | disposition home or self-care (01) ==
LOC: LAB 01:20
PROVIDERS: PCP Internal Medicine; Visit Provider Internal Medicine
DX: E11.9 Type 2 diabetes mellitus without complications (principal); Z12.5 Encounter for screening for malignant neoplasm of prostate; M25.511 Pain in right shoulder; I10 Essential (primary) hypertension; E78.5 Hyperlipidemia, unspecified
CPT/HCPCS: 36415; 80051; 80061; 80076; 82565; 83036; 84443; 84520; 85025; 85652; G0103

== ENCOUNTER 2023-08-20 06:32 | Observation (INO) | payer MEDICARE, MEDICAID, SELFPAY ==
[2023-08-20] VITALS (14 sets, daily range): BP systolic 127–190; BP diastolic 76–122; PULSE 79–125; TEMP 36.5–37.2; O2SAT 92–98; BMI 28.0; BMI 27.3
--- OUTSIDE RECORDS SUMMARY | 2023-08-20 06:43 | XMS_ITS | CCD ---
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 PERFORMED BY: [place] [address] PATHOLOGIST PE MANAGER MERVIN ADHIKARI M.D. [facility] Comment on above: Performed By: #### CUSUP #### [address] Bacteria identified Aer cx N om (Unsp spec)Ordered By: Ana María Valiente on 08-21-2021 Superficial Wound Culture Staphylococcus aureus [facility] Superficial Wound Cultureon 08-21-2021 Superficial Wound Culture [...] RESISTANT TO ALL B-LACTAM DRUGS. PERFORMED BY: [place] [id number] PATHOLOGIST PE MANAGER MERVIN ADHIKARI M.D. [facility] Comment on above: Performed By: #### CUSUP #### [address] CNOVon 02-09-2017 CNOV Office Visit (WHITNEY) --HANSLAWSON ([id number]) 1945 MDate Time Provider Luroqbbonk30/27/17 JORDAN GARCIA (PA) During your visit today, we recorded the following information about you: Temperature Pulse Respiration Blood pressure 98.6 degrees 61/minute 18/minute 138/59Palinda Garcia PA-C 02/09/2017 2:24 PM AddendumPatient Name: Lawson Lieberman FedericoRN: [id number] For Visit: Fpc Visit at [facility] for a follow up fordischar visit.Past Medical Hx: No past medical history [...] negativeFamily/Social History: Unchanged, see HANDamp;P.Medications: REVIEWED IN INTERMEDIATE CHARTObjective Data:BP 138/59 Pulse 61 Temp 37 [...] spent in the discharge process on this patientPaulettSTEVE Espinoza-CI'll make no further changes at this time. [...] FOR* Status:Closed by JORDAN GARCIA on 02/09/17 Normal [facility] PROGRESSon 02-09-2017 PROGRESS HNO ID: [id number] thor: Jordan (Steve) GrantService: (none)Author Type: Physician AssistantType: Progress NotesFiled: 02/09/2017 2:24 PMNote Text:Patient Name: Lawson HardenvyMRN: [id number] For Visit: Fpc Visit at [facility] for a follow upfor discharge visit.Past [...] negativeFamily/Social History: Unchanged, see HANDP.Medications: REVIEWED IN INTERMEDIATE CHARTObjective Data:BP 138/59 Pulse 61 Temp 37 [...] safety.Signature: STEVE Reinoso-CDate: February 09, 2017 Normal [facility] PROGRESSon 01-27-2017 PROGRESS HNO ID: [id number] thor: Giulia Casas ErenService: (none)Author Type: PhysicianType: Progress NotesFiled: 01/30/2017 10:27 AMNote Text: [facility] NOTENAME: ZONIA MAXWELL NO.: [id number] OF SERVICE: 01/27/2017[place] GardensDATE OF : 1945He is sitting up. [...] pravastatin therapy.DICTATED BY: Giulia Hollis MDIAE/AcusisD:01/27/2017 JOB# [id number]:[facility] Signed by Giulia Hollis MD at 01/30/2017 10:19:29 Normal [facility] CNOVon 12-26-2016 CNOV Office Visit (WHITNEY) --LAWSON MAXWELL ([id number]) 1945 [facility] Time Provider Zyupqcprag79/13/17 JORDAN GARCIA (PA) During your visit today, we recorded the following information about you: Temperature Pulse Respiration Blood pressure 98.4 degrees 64/minute 18/minute 112/70Paulettla Garcia PA-C 12/26/2016 2:27 PM SignedPatient Name: Lawson Lieberman FinavyMRN: [id number] For Visit: Fpc Visit at [facility] for a monthly visit.Past Medical Hx: [...] negativeFamily/Social History: Unchanged, see HANDamp;P.Medications: REVIEWED IN INTERMEDIATE CHARTObjective Data:BP 112/70 Pulse 64 Temp 36.9 [...] FOR* Status:Closed by JORDAN GARCIA on 12/26/16 Normal [facility] PROGRESSon 12-26-2016 PROGRESS HNO ID: [id number] thor: Jordan (Steve) GrantService: (none)Author Type: Physician AssistantType: Progress NotesFiled: 12/26/2016 2:27 PMNote Text:Patient Name: Lawson HardenvyMRN: [id number] For Visit: Fpc Visit at [facility] for a monthlyvisit.Past Medical Hx: No [...] negativeFamily/Social History: Unchanged, see HANDP.Medications: REVIEWED IN INTERMEDIATE CHARTObjective Data:BP 112/70 Pulse 64 Temp 36.9 [...] safety.Signature: STEVE Reinoso-CDate: December 26, 2016 Normal [facility] PROGRESSon 12-01-2016 PROGRESS HNO ID: [id number] thor: Giulia Ngoervice: (none)Author Type: PhysicianType: Progress NotesFiled: 12/02/2016 5:17 PMNote Text: [facility] NOTENAME: ZONIA MAXWELL NO.: [id number] OF SERVICE: 12/01/2016[place]DATE OF : 1945He is resting in [...] pravastatin therapy.DICTATED BY: Giulia Hollis MDIAE/AcusisD:12/01/2016 JOB# [id number]:[facility] Signed by Giulia Hollis MD at 12/02/2016 17:13:10 Normal [facility] PROGRESSon 11-01-2016 PROGRESS HNO ID: [id number] thor: Maggie Westfall (Kay) Hubert: (none)Author Type: Nurse PractitionerType: Progress NotesFiled: 11/05/2016 12:57 PMNote Text: [facility] NOTENAME: DELFINOCatiaLAWSONREGINA NO.: [id number] OF SERVICE: 11/01/2016[facility] 1945Seen today after review of [...] can ambulate with assistance, but he needs 1-oa-0rxslundups to walk a few steps. He is [...] him to attend physical therapy.DICTATED BY: JANEY SKINNER/AnibalusisD:11/01/2016 VERO# [id number]:[facility] Signed by MAYITO KRAFT CNP at 11/05/2016 12:43:45 Normal [facility] CNOVon 10-30-2016 CNOV Office Visit (WHITNEY) --LAWSON MAXWELL ([id number]) 1945 MDate Time Provider Department10/30/16 RUT DOMINGUEZ (KAY) WHITNEY During your visit today, we recorded the following information about you: Temperature Pulse Respiration Blood pressure 97.4 degrees 62/minute 18/minute 142/70 Weight 98.4 kgJonomarquise KAY Dominguez 10/30/2016 4:33 PM SignedPatient Name: Lawson CaballeroRN: [id number] For Visit: Fpc Visit at [facility] for a Acute for Left hip and [...] see HANDamp;P.?Medications: see current medication list in [facility] chart, reviewed(Medications in [facility] may not accurate, please see update in [facility] chart)?Objective Data:BP 142/70 Pulse 62 Temp [...] I69.3545. Essential hypertension - ICD9: 401.9, ICD10: B87Rmloc () 1/2 tab bid + q6 prnCont' current [...] by RUT DOMINGUEZ CNP on 10/30/16 Normal [facility] PROGRESSon 10-30-2016 PROGRESS HNO ID: [id number] thor: Rut (Kay) AngeloService: (none)Author Type: Nurse PractitionerType: Progress NotesFiled: 10/30/2016 4:33 PMNote Text:Patient Name: Lawson DesirgreysonvyMRN: [id number] For Visit: Fpc Visit at [facility] for a Acute forL eft hip and [...] see HANDP.?Medications: see current medication list in [facility] chart, reviewed(Medications in [facility] may not accurate, please see update in [facility] chart)?Objective Data:BP 142/70 Pulse 62 Temp [...] I69.3545. Essential hypertension - ICD9: 401.9, ICD10: Q51Vjher (5/325) 1/2 tab bid + q6 prnCont' current meds regimenLab: ua+ c/sLS spine AND hip xrayPT consultObserve condition AND behaviorDiscuss plan of care w R AND staffI'll make no further changes at this time. We will continue to monitor foroverall comfort, function and safety.Signature: Rut Dominguez CNPDate: October 30, 2016 Normal [facility] PROGRESSon 10-02-2016 PROGRESS HNO ID: [id number] thor: Itri Yessenia ErenService: (none)Author Type: PhysicianType: Progress NotesFiled: 10/03/2016 5:28 PMNote Text: [facility] NOTENAME: ZONIA MAXWELL NO.: [id number] OF SERVICE: 10/02/2016Ady Aguilera is up and [...] pravastatin therapy.DICTATED BY: Giulia Hollis MDIAE/AcusisD:10/02/2016 JOB# [id number]:[facility] Signed by Giulia Hollis MD at 10/03/2016 17:10:48 Normal [facility] Encounters Encounter Date Encounter Type Care Provider Facility Start: 04-13-2023 End: 04-13-2023 ambulatory ALLEN [facility] Not Available Start: 08-28-2021 End: 08-28-2021 Departed Referred JR Eliud Echevarria Work Phone: [facility] [place] Start: 08-21-2021 End: 08-21-2021 Departed Referred JR Eliud Echevarria Work Phone: [facility] [place] Procedures Date Procedure Procedure Detail Performing Clinician Start: 08-21-2021 Aerobic microbial culture JR Eliud Echevarria Work Phone: Plan of Treatment Date Care Activity Detail Author Start: 08-28-2021 Superficial Wound Culture Superficial Wound Culture [facility] Start: 08-21-2021 Superficial Wound Culture Superficial Wound Culture [facility] Bacteria identified in Unspecified specimen by Aerobe culture [facility] Work Phone: Payers Date Payer Category Payer Medicaid [id number] 2012 Medicare [id number] 1945 Unknown [id number] Medicaid [employer] [id number] Medicare Medicare [id number] Self-pay Self Pay [id number] Social History Date Type Detail Facility Start: 03-08-2019 Tobacco smoking stat us ILIS Never smoked tobacco (finding) [facility] Start: 1945 Sex Assigned At Male F [facility] Evaluation note Note Date & Type Note Facility Evaluation note No assessment information availa ble [facility] Work Phone: Summary Purpose Family History No [...] section and content) DATE CREATED AUTHOR 09/08/2017 [facility] DATE CREATED AUTHOR AUTHOR'S ORGANIZ ATION 09/10/2021 [facility] DATE CREATED AUTHOR AUTHOR'S ORGANIZ ATION 04/13/2023 [facility] EPIC Care Teams (unrecognized sec tion and content) Team Status: Inactive Member Role Status Dates Eliud Echevarria JR DO Primary Care Provider Active AnaM aría Valiente MD Attending Provider Active Team Status: Active Member Role Status Dates Eliud L Valone , JR DO Primary Care Provider Active Goals [...] BE BASED ON THE PRIMARY CLINICAL RECORDS. [facility] [employer] [facility]. provides no warranty or guarantee of the accuracy or completeness of information in this document.
--- NOTE | 2023-08-20 06:51 | XR_ITS ---
The [address] [address] Patient Name: LAWSON MAXWELL MRN: [id number] date: 1945 Sex: M Assigned Patient Location: ER Current Patient Location: Accession/Order Number: [id number] Exam Date: 08/20/2023 07:20 Report Date: 08/20/2023 07:51 At the request of: LAUREN MARKER Procedure: XR hip RT 2V w/ pelvis PROCEDURE: XR hip RT 2V w/ pelvis HISTORY: fall COMPARISON: None. FINDINGS: BONES:Narrowing of the joint spaces and periarticular osteophytes bilaterally, left greater than right. No dislocation or appreciable fracture. SOFT TISSUES:No visible soft tissue swelling. EFFUSION:None visible. OTHER: Negative. XR/XR hip RT 2V w/ pelvis IMPRESSION: 1. Moderate marked degenerative joint disease; left greater than right. 2. No appreciable fracture, but evaluation is limited due to positioning of the femurs. If there remains clinical concern repeat radiographs should be obtained. Electronically authenticated by: FAITH WEBSTER Date: 08/20/2023 07:51
--- NOTE | 2023-08-20 06:51 | CT_ITS ---
The [address] [address] Patient Name: LAWSON MAXWELL MRN: [id number] date: 1945 Sex: M Assigned Patient Location: ED.MAIN Current Patient Location: Accession/Order Number: [id number] Exam Date: 08/20/2023 07:12 Report Date: 08/20/2023 07:31 At the request of: LAUREN MARKER Procedure: CT head/brain wo con EXAMINATION: CT head/brain wo con HISTORY: weakness COMPARISON: No relevant comparison available. TECHNIQUE: Axial CT images were obtained without IV contrast. Dose reduction techniques were achieved by using automated exposure control and/or adjustment of mA and/or kV according to patient size and/or use of iterative reconstruction technique. FINDINGS: BRAIN: Old lacunar infarctions within the basal ganglia. Small area of encephalomalacic changes versus asymmetric chronic small vessel ischemic changes at right frontoparietal junction cephalad to the lateral ventricle. No intracranial hemorrhage. CSF SPACES: Mild expected dilation of the body and posterior horn of right lateral ventricle, likely secondary to overlying encephalomalacic or chronic small vessel ischemic changes and atrophy. No hydrocephalus, subarachnoid hemorrhage, or mass. SKULL: No fracture, mass, or other significant visible lesion. SINUSES: No significant mucosal thickening or fluid on the limited views. ORBITS: No appreciable abnormality on the limited views. OTHER: Negative CT/CT head/brain wo con IMPRESSION: 1. No intracranial hemorrhage or convincing acute abnormality. Old lacunar infarctions within the basal ganglia. 2. Changes within deep white matter at the right frontoparietal junction favor asymmetric chronic small vessel ischemic changes or sequela of remote infarction. Acute ischemia is felt less likely. Consider follow-up MRI of the brain for further evaluation if clinically indicated. 3. No fracture the calvarium or scalp hematoma. Electronically authenticated by: FAITH WEBSTER Date: 08/20/2023 07:31
--- NOTE | 2023-08-20 06:54 | ED_ITS ---
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 The patient states he was in a wheelchair yesterday and was bending to the left to pick something up when the wheelchair flipped over. He fell out of the wheelchair and his left hip got caught on the handles of the wheelchair. He declined being transferred to the emergency department at that time stating he was feeling fine but however this morning when he woke up he was feeling more weak than usual. He typically is able to transfer using his right side but states today that his right side feels weak like his right leg is going to give out on him. He had similar symptoms after having a stroke when participating in physical therapy. He denies any headache or striking his head. He denies any neck pain. He has no new or focal weakness numbness or tingling just generalized weakness of the right leg. He does state that he has a torn meniscus in the right knee. Related Data Home Medications ?Medication ?Instructions ?Recorded ?Confirmed acetaminophen 325 mg tablet mg 08/20/23 apixaban 5 mg tablet (Eliquis) mg 08/20/23 aspirin 81 mg chewable tablet 08/20/23 cholecalciferol (vitamin D3) 50 08/20/23 mcg (2,000 unit) tablet diclofenac sodium 1 % topical gel topical 08/20/23 dulaglutide 3 mg/0.5 mL mg subcut 08/20/23 subcutaneous pen injector (Trulicity) duloxetine 60 mg capsule,delayed mg PO 08/20/23 release dutasteride 0.5 mg capsule mg PO 08/20/23 empagliflozin 10 mg tablet mg 08/20/23 (Jardiance) ezetimibe 10 mg tablet mg 08/20/23 famotidine 40 mg tablet mg 08/20/23 losartan 25 mg tablet mg 08/20/23 metoprolol tartrate 25 mg tablet mg 08/20/23 mirabegron 50 mg tablet,extended mg PO 08/20/23 release 24 hr (Myrbetriq) nystatin 100,000 unit/gram topical topical 08/20/23 powder olopatadine 0.2 % eye drops drp ophthalmic (eye) 08/20/23 ondansetron HCl 4 mg tablet mg 08/20/23 potassium chloride 20 mEq meq PO 08/20/23 tablet,extended release(part/cryst) quetiapine 50 mg tablet mg 08/20/23 rosuvastatin 20 mg tablet mg 08/20/23 sennosides 8.6 mg-docusate sodium PO 08/20/23 50 mg tablet (Senexon-S) tamsulosin 0.4 mg capsule mg PO 08/20/23 trazodone 50 mg tablet mg 08/20/23 Allergies Allergy/AdvReac Type Severity Reaction Status Date / Time No Known Drug Allergies Allergy Verified 08/20/23 06:38 Opioid HPI Opioid Management Most Recent Pain and Opioid Data: No Data to Display Review of Systems ROS Status of ROS 10 or more systems reviewed and unremark able except as noted in history and below Exam Narrative Exam Narrative: Vital signs and Nursing Notes reviewed: Patient is afebrile with a normal pulse, blood pressure is elevated at 180/100, he is not hypoxic with pulse ox of 98% on room air General: Awake, alert, oriented, no acute distress, lying comfortably on the stretcher HEENT: Normocephalic atraumatic, mucous membranes are moist and pink, eyes are clear, normal conjunctiva, vision is grossly intact, posterior pharynx is normal in appearance. Neck: Supple, no midline bony vertebral tenderness or step-off Chest: Lungs are clear to auscultation with good air entry, there is no wheezing rhonchi or rales appreciated no accessory muscle use, patient is speaking in complete sentences-no chest wall tenderness to palpation CVS: Regular rate and rhythm S1-S2, no murmurs rubs or gallops, pulses are brisk and equal bilaterally ABD: Soft, nondistended, nontender, no rebound guarding or rigidity, bowel sounds are normal, no pulsatile masses appreciated Extremities: There is a small bruise on the left lateral hip. The patient is able to raise the left leg up off of the stretcher, right lower extremity is warm, sensate with no bony tenderness, bruising shortening of the extremity or other notable abnormality. Venetian Blind Tape Cutter strength is intact on the right. The left hand is contracted. Skin: Normal in appearance without rash,pallor, petechiae or purpura Neuro: Residual left hemiparesis from stroke in 2015, otherwise patient's cognition is intact, speech is clear, there is no facial droop, left upper extremity is contracted and left lower extremity is generally weak with muscle wasting. No gross focal deficits noted at this time. Constitutional Vital Signs, click to edit/add: Last Vital Signs Temp 97.7 F 08/20/23 06:34 Pulse 88 08/20/23 06:34 Resp 16 08/20/23 06:34 BP 180/100 H 08/20/23 06:34 Pulse Ox 98 08/20/23 06:34 O2 Del Method Room Air 08/20/23 06:34 Course Vital Signs Vital signs: Vital Signs Temperature 97.7 F 08/20/23 06:34 Pulse Rate 88 08/20/23 06:34 Respiratory Rate 16 08/20/23 06:34 Blood Pressure 180/100 H 08/20/23 06:34 Pulse Oximetry 98 08/20/23 06:34 Oxygen Delivery Method Room Air 08/20/23 06:34 Temperature 97.7 F 08/20/23 06:34 Pulse Rate 88 08/20/23 06:34 Respiratory Rate 16 08/20/23 06:34 Blood Pressure 180/100 H 08/20/23 06:34 Pulse Oximetry 98 08/20/23 06:34 Oxygen Delivery Method Room Air 08/20/23 06:34 MDM - Fall MDM Narrative Medical decision making narrative: Patient signed out to the oncoming physician at 7 AM Discharge Plan Discharge Chief Complaint: Fall Patient Disposition: Still a Patient Prescriptions / Home Meds: No Action acetaminophen 325 mg tablet famotidine 40 mg tablet potassium chloride 20 mEq tablet,ER particles/crystals PO losartan 25 mg tablet aspirin 81 mg tablet,chewable ezetimibe 10 mg tablet dutasteride 0.5 mg capsule PO metoprolol tartrate 25 mg tablet duloxetine 60 mg capsule,delayed release(DR/EC) PO quetiapine 50 mg tablet trazodone 50 mg tablet ondansetron HCl 4 mg tablet sennosides-docusate sodium [Senexon-S] 8.6-50 mg tablet PO tamsulosin 0.4 mg capsule PO nystatin 100,000 unit/gram powder TOPICAL rosuvastatin 20 mg tablet olopatadine 0.2 % drops OPHTHALMIC (EYE) diclofenac sodium 1 % gel TOPICAL cholecalciferol (vitamin D3) 50 mcg (2,000 unit) tablet mirabegron [Myrbetriq] 50 mg tablet extended release 24 hr PO Eliquis 5 mg tablet Jardiance 10 mg tablet Trulicity 3 mg/0.5 mL pen injector SUBCUT Print Language: Syriac Referrals: BOB DENT MD [Primary Care Provider] - 1 week
--- NOTE | 2023-08-20 06:55 | PC.NURSE ---
Pt presents to ER after a fall from wheelchair at [facility] where he resides Pt states he tipped over his wheelchair while transferring to his bed yesterday landing on his left hip Pt has chronic weakness and decreased mobility to left side after a stroke in 2015 Pt is typically able to transfer, stand, and pivot on his own Pt denied injury from fall yesterday and refused treatment Today pt is unable to stand more than a few inches from his wheelchair Pt states he has no pain, even with palpation no pain noted, just weakness to both legs Small bruising and abrasion noted to left hip and lower back Pt states concern for his right leg because typically that is his strong leg that allows him to be independent MSP's intact in both lower extremities
[2023-08-20 07:05] LABS: Basophils Absolute Auto 0.1 10^3/uL (0.0-0.1); Basophils Percent Auto 0.8 % (0.2-2.0); Eosinophils Absolute Auto 0.3 10^3/uL (0.0-0.7); Eosinophils Percent Auto 4.2 % (0.9-7.0); Hematocrit 46.9 % (42.0-54.0); Hemoglobin 15.5 g/dL (14.0-18.0); Immature Granulocytes Abs Auto 0.01 10^3/uL (0.00-0.03); Immature Granulocytes Pct Auto 0.2 % (0.0-0.5); Lymphocytes Absolute Auto 1.2 10^3/uL (1.2-3.8); Lymphocytes Percent Auto 20.7 % (20.5-60.0); Mean Corpuscular Hemoglobin 30.9 pg (25.9-34.0); Mean Corpuscular Volume 93.4 fL (80.0-94.0); Mean Platelet Volume 8.4 fL (9.5-13.5); Monocytes Absolute Auto 0.5 10^3/uL (0.3-0.8); Monocytes Percent Auto 8.5 % (1.7-12.0); Neutrophils Absolute Auto 3.9 10^3/uL (1.4-6.5); Neutrophils Percent Auto 65.6 % (43.0-75.0); Platelet Count 164 10^3/uL (150-450); Red Blood Count 5.02 10^6/uL (4.70-6.10); Red Cell Distribution Width 13.4 % (11.0-15.0); White Blood Count 5.9 10^3/uL (4.0-11.0)
--- NOTE | 2023-08-20 07:09 | ECG_ITS ---
The [facility] Test Date: 2023-08-20 Pat Name: LAWSON MAXWELL Department: Room: - Gender: Male Rn Staff: : 1945 Requested By: BOB DENT Order Number: [id number] Reading MD: YOMI JONES Measurements Intervals Satin Rate: 84 P: -73992 HI: -50230 QRS: 68 QRSD: 94 T: 109 QT: 382 QTc: 423 Interpretive Statements 1210 Atrial fibrillation 58616 Nonspecific Twave abnormality, probably digitalis effect 9140 abnormal rhythm ECG No previous ECG available for comparison Electronically Signed On 08-20-2023 21:22:44 EDT by YOMI JONES
[2023-08-20 07:32] LABS: Alanine Aminotransferase 34 U/L (16-63); Albumin Globulin Ratio 1.1; Albumin Level 3.6 g/dL (3.4-5.0); Alkaline Phosphatase 54 U/L (46-116); Anion Gap 11.8; Aspartate Amino Transferase 20 U/L (15-37); BUN Creatinine Ratio 17.2; Bilirubin Total 2.1 mg/dL (0.2-1.0); Carbon Dioxide 30.4 mmol/L (21.0-32.0); Chloride 104 mmol/L (98-107); Creatine Kinase 120 U/L (39-308); Estimated GFR (African America >60 (>=60); Estimated GFR (Non-African Ame >60 (>=60); Globulin 3.4 g/dL; Glucose 135 mg/dL (74-106); Potassium 4.2 mmol/L (3.5-5.1); Sodium 142 mmol/L (136-145)
[2023-08-20 07:33] LABS: Troponin I High Sensitivity 7.4 pg/mL (4.0-76.1)
[2023-08-20 07:36] LABS: INR 1.06; Prothrombin Time 11.2 sec (9.0-11.6)
--- NOTE | 2023-08-20 08:08 | CT_ITS ---
The [address] [address] Patient Name: LAWSON MAXWELL MRN: [id number] date: 1945 Sex: M Assigned Patient Location: ER Current Patient Location: Accession/Order Number: [id number] Exam Date: 08/20/2023 08:25 Report Date: 08/20/2023 09:16 At the request of: ELMA TOLENTINO Procedure: CT angio neck EXAM: CT angio head, CT angio neck HISTORY: stroke r/o COMPARISON: CT head performed the same day and reported separately. TECHNIQUE: Axial noncontrast CT imaging of the head was performed. Subsequent postcontrast CTA imaging of the head and neck was performed with coronal and sagittal reformats. Maximum intensity projection and 3-D reformats were performed on a separate workstation. NASCET criteria was utilized. This CT exam was performed using one or more of the following dose reduction techniques: Automated exposure control, adjustment of the MA and/or kV according to patient size, or use of iterative reconstruction technique. Please note all images for both the CTA head and CTA neck are contained under the CTA head patient jacket. FINDINGS: Aortic arch: Imaged portion shows no evidence of aneurysm. There is atherosclerotic change at the completion of the right brachiocephalic artery with narrowing approaching but not exceeding 50% stenosis involving the origin of the right brachiocephalic artery and mild stenosis without hemodynamically significant narrowing involving the origin of the right common carotid artery. Right carotid system: Dense atherosclerotic calcification is present involving the right carotid bulb and proximal right internal and extra renal carotid artery with narrowing approaching but not exceeding 50% stenosis involving the origin of the right internal carotid artery. Left carotid system: Mixed atherosclerotic changes present involving the left carotid bulb and proximal left internal and external carotid arteries without hemodynamically significant stenosis. Vertebral arteries: Mild left vertebral artery dominance. No evidence of significant (50% or greater) stenosis or occlusion. Anterior circulation: No evidence of aneurysm or occlusion. Moderate stenosis involving the right greater than left cavernous and supraclinoid internal carotid artery segments. Moderate short segment stenosis involving the distal right M1 middle cerebral artery. Vertebrobasilar system: No evidence of aneurysm, significant stenosis, or occlusion. Atherosclerotic change, predominantly calcified involving the bilateral V4 vertebral artery segments, greater on the right with multifocal mild to moderate stenosis. Venous sinuses: Grossly patent. Additional findings: Visualized portion of the lungs are clear. CT/CT angio neck IMPRESSION: 1. No large vessel occlusion or aneurysm involving the neck or intracranial arteries. 2. Multifocal short segment fxnp-pu-jyxdzlpr stenosis involving the bilateral V4 vertebral artery segments and distal right M1 middle cerebral artery segment. Moderate stenosis involving the right greater than left cavernous and supraclinoid internal carotid arteries. 3. Short segment narrowing approaching but not exceeding 50% stenosis involving the origin of the right subclavian artery just distal to the brachiocephalic bifurcation. Electronically authenticated by: MARTINA FLETCHER Date: 08/20/2023 09:16
--- NOTE | 2023-08-20 08:08 | CT_ITS ---
The [address] [address] Patient Name: LAWSON MAXWELL MRN: [id number] date: 1945 Sex: M Assigned Patient Location: ER Current Patient Location: Accession/Order Number: [id number] Exam Date: 08/20/2023 08:25 Report Date: 08/20/2023 09:16 At the request of: ELMA TOLENTINO Procedure: CT angio head EXAM: CT angio head, CT angio neck HISTORY: stroke r/o COMPARISON: CT head performed the same day and reported separately. TECHNIQUE: Axial noncontrast CT imaging of the head was performed. Subsequent postcontrast CTA imaging of the head and neck was performed with coronal and sagittal reformats. Maximum intensity projection and 3-D reformats were performed on a separate workstation. NASCET criteria was utilized. This CT exam was performed using one or more of the following dose reduction techniques: Automated exposure control, adjustment of the MA and/or kV according to patient size, or use of iterative reconstruction technique. Please note all images for both the CTA head and CTA neck are contained under the CTA head patient jacket. FINDINGS: Aortic arch: Imaged portion shows no evidence of aneurysm. There is atherosclerotic change at the completion of the right brachiocephalic artery with narrowing approaching but not exceeding 50% stenosis involving the origin of the right brachiocephalic artery and mild stenosis without hemodynamically significant narrowing involving the origin of the right common carotid artery. Right carotid system: Dense atherosclerotic calcification is present involving the right carotid bulb and proximal right internal and extra renal carotid artery with narrowing approaching but not exceeding 50% stenosis involving the origin of the right internal carotid artery. Left carotid system: Mixed atherosclerotic changes present involving the left carotid bulb and proximal left internal and external carotid arteries without hemodynamically significant stenosis. Vertebral arteries: Mild left vertebral artery dominance. No evidence of significant (50% or greater) stenosis or occlusion. Anterior circulation: No evidence of aneurysm or occlusion. Moderate stenosis involving the right greater than left cavernous and supraclinoid internal carotid artery segments. Moderate short segment stenosis involving the distal right M1 middle cerebral artery. Vertebrobasilar system: No evidence of aneurysm, significant stenosis, or occlusion. Atherosclerotic change, predominantly calcified involving the bilateral V4 vertebral artery segments, greater on the right with multifocal mild to moderate stenosis. Venous sinuses: Grossly patent. Additional findings: Visualized portion of the lungs are clear. CT/CT angio head IMPRESSION: 1. No large vessel occlusion or aneurysm involving the neck or intracranial arteries. 2. Multifocal short segment ffao-ou-dihjfxve stenosis involving the bilateral V4 vertebral artery segments and distal right M1 middle cerebral artery segment. Moderate stenosis involving the right greater than left cavernous and supraclinoid internal carotid arteries. 3. Short segment narrowing approaching but not exceeding 50% stenosis involving the origin of the right subclavian artery just distal to the brachiocephalic bifurcation. Electronically authenticated by: MARTINA FLETCHER Date: 08/20/2023 09:16
--- OUTSIDE RECORDS SUMMARY | 2023-08-20 10:08 | XMS_ITS ---
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 Name Role Phone JR Eliud Echevarria Primary Care Provider MD Ana María Valiente Attending Provider ALLEN FUNK Attending Unavailable Encounters Encounter Date Encounter Type Care Provider Facility Start: 04-13-2023 End: 04-13-2023 ambulatory ALLEN FUNK Not Available Start: 08-28-2021 End: 08-28-2021 Departed Referred JR Eliud Echevarria Work Phone: [facility] Start: 08-21-2021 End: 08-21-2021 Departed Referred JR Eliud Echevarria Work Phone: [facility] Medications Current Medications Medication Drug Class(es) Dates [...] ML PO Daily March 03, 2019 5:56pm Ohfjm-Hzztj-[place]aa-Sibe justino Fir (Vicks Vapoinhaler) Inhaler (2 sources) Start: 03-03-2019 Gmnur-Osngs-Eswpz -Siberian Fir (Vicks Vapoinhaler) Inhaler Active 1 [...] 03, 2019 5:56pm March 08, 2019 2:30pm Payers Date Payer Category Payer Medicaid [id number] 2012 Medicare [id number] 1945 Unknown [id number] Medicaid [employer] [id number] Medicare Medicare [id number] Self-pay Self Pay [id number] Plan of Treatment Date Care Activity Detail Author Start: 08-28-2021 Superficial Wound Culture Superficial Wound Culture [facility] Start: 08-21-2021 Superficial Wound Culture Superficial Wound Culture [facility] Bacteria identified in Unspecified specimen by Aerobe culture [facility] Work Phone: Procedures Date Procedure Procedure Detail Performing Clinician Start: 08-21-2021 Aerobic microbial culture JR Eliud Echevarria Work Phone: Results Test Name Value Interpretation Reference Range [...] RESISTANT TO ALL B-LACTAM DRUGS. PERFORMED BY: [place] [address] PATHOLOGIST COMMUNITY RELATIONS MANAGER MERVIN ADHIKARI M.D. Normal [facility] Comment on above: Performed By: #### CUSUP #### [facility] [address] [place] [address] Bacteria identified Aer cx N om (Unsp spec)Ordered By: Ana María Petitti on 08-21-2021 Superficial Wound Culture Staphylococcus aureus [facility] Superficial Wound Cultureon 08-21-2021 Superficial Wound Culture [...] RESISTANT TO ALL B-LACTAM DRUGS. PERFORMED BY: [place] [address] PATHOLOGIST COMMUNITY RELATIONS MANAGER MERVIN ADHIKARI M.D. Normal [facility] Comment on above: Performed By: #### CUSUP #### [address] Na 02-09-2017 CNOV Office Visit (WHITNEY) --LAWSON MAXWELL ([id number]) 1945 MDate Time Provider Xsejkytuhs98/27/17 JORDAN GARCIA (PA) During your visit today, we recorded the following information about you: Temperature Pulse Respiration Blood pressure 98.6 degrees 61/minute 18/minute 138/59Paulettla Garcia PA-C 02/09/2017 2:24 PM AddendumPatient Name: Lawson CaballeroRN: [id number] For Visit: Halfway Visit at [facility] for a follow up fordischarge visit.Past [...] negativeFamily/Social History: Unchanged, see HANDamp;P.Medications: REVIEWED IN LONGTERM CHARTObjective Data:BP 138/59 Pulse 61 Temp 37 [...] in the discharge process on this patientPaulette JUHI Garcia-CI'll make no further changes at this time. We will continue to monitor foroverall comfort, function and safety.Signature: JUHI Reinoso-CDate: February 09, 2017Allergies As of Date: [...] Status:Closed by JORDAN GARCIA on 02/09/17 Normal [facility] PROGRESSon 02-09-2017 PROGRESS HNO ID: [id number] thor: Jordan Cowart) GrantService: (none)Author Type: Physician AssistantType: Progress NotesFiled: 02/09/2017 2:24 PMNote Text:Patient Name: Lawson HardenvyMRN: [id number] For Visit: Halfway Visit at [facility] for a follow [...] negativeFamily/Social History: Unchanged, see HANDP.Medications: REVIEWED IN LONGTERM CHARTObjective Data:BP 138/59 Pulse 61 Temp 37 [...] spent in the discharge process on this patientPaulettALONSO Espinoza'll make no further changes at this time. We will continue to monitor foroverall comfort, function and safety.Signature: JUHI Reinoso-CDate: February 09, 2017 Normal [facility] PROGRESSon 01-27-2017 PROGRESS HNO ID: [id number] thor: Giulia Casas EreTammiervice: (none)Author Type: PhysicianType: Progress NotesFiled: 01/30/2017 10:27 AMNote Text: [facility] NOTENAME: ZONIA MAXWELL NO.: [id number] OF SERVICE: 01/27/2017[facility] ERATE OF : 1945He is sitting up. He [...] pravastatin therapy.DICTATED BY: Giulia Hollis MDIAE/AcusisD:01/27/2017 JOB# [id number]:[facility] Signed by Giulia Hollis MD at 01/30/2017 10:19:29 Normal [facility] CNOVon 12-26-2016 CNOV Office Visit (WHITNEY) --LAWSON MAXWELL ([id number]) 1945 [facility] Zsvbpoicru79/13/17 JORDAN GARCIA ([place]) During your visit today, we recorded the following information about you: Temperature Pulse Respiration Blood pressure 98.4 degrees 64/minute 18/minute 112/70Paulettla Garcia PA-C 12/26/2016 2:27 PM SignedPatient Name: Lawson Lieberman Alisha: [id number] For Visit: Halfway Visit at [facility] for a monthly [...] negativeFamily/Social History: Unchanged, see HANDamp;P.Medications: REVIEWED IN LONGTERM CHARTObjective Data:BP 112/70 Pulse 64 Temp 36.9 [...] 272.4, ICD10: E78.5- good control- Continue current medication.JUHI Reinoso-CI'll make no further changes at this time. We will continue to monitor foroverall comfort, function and safety.Signature: JUHI Reinoso-CDate: December 26, 2016Allergies As of Date: [...] FOR* Status:Closed by JORDAN GARCIA on 12/26/16 [facility] PROGRESSon 12-26-2016 PROGRESS HNO ID: [id number] thor: Jordan Cowart) GrantService: (none)Author Type: Physician AssistantType: Progress NotesFiled: 12/26/2016 2:27 PMNote Text:Patient Name: Lawson DesirilvyMRN: [id number] For Visit: Halfway Visit at [facility] for a monthlyvisit.Past [...] negativeFamily/Social History: Unchanged, see HANDP.Medications: REVIEWED IN LONGTERM CHARTObjective Data:BP 112/70 Pulse 64 Temp 36.9 [...] ICD9: 272.4, ICD10:E78.5- good control- Continue current medication.JUHI Reinoso-CI'll make no further changes at this time. We will continue to monitor foroverall comfort, function and safety.Signature: MIN ReinosoCDate: December 26, 2016 Normal [facility] PROGRESSon 12-01-2016 PROGRESS HNO ID: [id number] thor: Giulia Caballeroice: (none)Author Type: PhysicianType: Progress NotesFiled: 12/02/2016 5:17 PMNote Text: [facility] NOTENAME: ZONIA MAXWELL NO.: [id number] OF SERVICE: 12/01/2016[place] GardensDATE OF : 1945He is resting in [...] on pravastatin therapy.DICTATED BY: Giulia Hollis MDIAE/AcusisD:12/01/2016 [facility]# [id number]:[facility] Signed by Giulia Hollis MD at 12/02/2016 17:13:10 Normal [facility] PROGRESSon 11-01-2016 PROGRESS HNO ID: [id number] thor: Maggie Westfall ([facility]) Hubert: (none)Author Type: Nurse PractitionerType: Progress NotesFiled: 11/05/2016 12:57 PMNote Text: [facility] NOTENAME: MADISONLAZ ZONIA NO.: [id number] OF SERVICE: 11/01/2016Ady Huerta OF : 1945Seen today after review of [...] can ambulate with assistance, but he needs 5-we-4fqmoscoool to walk a few steps. He is [...] him to attend physical therapy.DICTATED BY: JANEY SKINNER/RickeysD:11/01/2016 VERO# [id number]:Ady Powelllectronicsamara Signed by MAYITO KRAFT CNP at 11/05/2016 12:43:45 Normal [facility] CNOVon 10-30-2016 CNOV Office Visit (WHITNEY) --LAWSON MAXWELL ([id number]) 1945 MDate Time Provider Department10/30/16 RUT DOMINGUEZ (KAY) WHITNEY During your visit today, we recorded the following information about you: Temperature Pulse Respiration Blood pressure 97.4 degrees 62/minute 18/minute 142/70 Weight 98.4 kgRut Dominguez CNP 10/30/2016 4:33 PM SignedPatient Name: Lawson Lieberman AureaN: [id number] For Visit: Halfway Visit at [facility] for a Acute for Left hip and [...] see HANDamp;P.?Medications: see current medication list in [facility] chart, reviewed(Medications in [facility] may not accurate, please see update in [facility] chart)?Objective Data:BP 142/70 Pulse 62 Temp [...] I69.3545. Essential hypertension - ICD9: 401.9, ICD10: R82Oikoe () 1/2 tab bid + q6 prnCont' current meds regimenLab: ua+ c/sLS spine ANDamp; hip xrayPT consultObserve condition ANDamp; behaviorDiscuss plan of care w R ANDamp; staffI'll make no further changes at this time. We will continue to monitor foroverall comfort, function and safety.Signature: Zenon Chavezte: October 30, 2016Allergies As of Date: 10/30/2016(Not [...] by RUT DOMINGUEZ CNP on 10/30/16 Normal [facility] PROGRESSon 10-30-2016 PROGRESS HNO ID: [id number] thor: Rut (Kay) AngeloService: (none)Author Type: Nurse PractitionerType: Progress NotesFiled: 10/30/2016 4:33 PMNote Text:Patient Name: Lawson RingyMRN: [id number] For Visit: Halfway Visit at [facility] for a Acute forL eft hip and [...] see HANDP.?Medications: see current medication list in [facility] chart, reviewed(Medications in [facility] may not accurate, please see update in [facility] chart)?Objective Data:BP 142/70 Pulse 62 Temp [...] I69.3545. Essential hypertension - ICD9: 401.9, ICD10: L66Viydr (5325) 1/2 tab bid + q6 prnCont' current meds regimenLab: ua+ c/sLS spine AND hip xrayPT consultObserve condition AND behaviorDiscuss plan of care w R AND staffI'll make no further changes at this time. We will continue to monitor foroverall comfort, function and safety.Signature: Rut Dominguez CNPDate: October 30, 2016 Normal [facility] PROGRESSon 10-02-2016 PROGRESS HNO ID: [id number] thor: Giulia Casas ErenService: (none)Author Type: PhysicianType: Progress NotesFiled: 10/03/2016 5:28 PMNote Text: [facility] NOTENAME: LAWSON MAXWELLTRISTANWILNER NO.: [id number] OF SERVICE: 10/02/2016Ady Aguilera is up and [...] pravastatin therapy.DICTATED BY: Giulia Hollis MDIAE/AcusisD:10/02/2016 JOB# [id number]:[place] Normal [facility] Social History Date Type Detail Facility Start: 03-08-2019 Tobacco smoking stat us NHIS Never smoked tobacco (finding) [facility] Start: 1945 Sex Assigned At Male F [facility] Evaluation note Note Date & Type Note Facility Evaluation note No assessment information availa ble [facility] Work Phone: Summary Purpose Family History No [...] section and content) DATE CREATED AUTHOR 09/08/2017 [facility] DATE CREATED AUTHOR AUTHOR'S ORGANIZ ATION 09/10/2021 [facility] DATE CREATED AUTHOR AUTHOR'S ORGANIZ ATION 04/13/2023 [facility] EPIC Care Teams (unrecognized sec [...] BE BASED ON THE PRIMARY CLINICAL RECORDS. [facility] [employer] [facility]. provides no warranty or guarantee of the accuracy or completeness of information in this document.
--- OUTSIDE RECORDS SUMMARY | 2023-08-20 10:11 | XMS_ITS ---
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 Team Providers Care Dialysis Rn Name Role Phone JR Eliud Echevarria Primary Care Provider MD Ana María Valiente Attending Provider ALLEN FUNK Attending Unavailable Encounters Encounter Date Encounter Type Care Provider Facility Start: 04-13-2023 End: 04-13-2023 ambulatory ALLEN FUNK Not Available Start: 08-28-2021 End: 08-28-2021 Departed Referred JR Eliud Echevarria Work Phone: [facility] Start: 08-21-2021 End: 08-21-2021 Departed Referred JR Eliud Echevarria Work Phone: [facility] Medications Current Medications Medication Drug Class(es) Dates [...] ML PO Daily March 03, 2019 5:56pm Uptbf-Ajtwy-Xbfpt-Sibe justino Fir (Vicks Vapoinhaler) Inhaler (2 sources) Start: 03-03-2019 Zjplq-Ilddz-Mllsh -Siberian Fir (Vicks Vapoinhaler) Inhaler Active 1 [...] 2:30pm Payers Date Payer Category Payer Medicaid [id number] 2012 Medicare [id number] 1945 Unknown [id number] Medicaid [employer] [id number] Medicare Medicare [id number] Self-pay Self Pay [id number] Plan of Treatment Date Care Activity Detail Author Start: 08-28-2021 Superficial Wound Culture Superficial Wound Culture [facility] Start: 08-21-2021 Superficial Wound Culture Superficial Wound Culture [facility] Bacteria identified in Unspecified specimen by Aerobe culture [facility] Work Phone: Procedures Date Procedure [...] RESISTANT TO ALL B-LACTAM DRUGS. PERFORMED BY: [place] [address] PATHOLOGIST OUT AND OUT CIGAR MAKER HAND MERVIN ADHIKARI M.D. Normal [facility] Comment on above: Performed By: #### CUSUP #### [facility] [address] [place] [address] Bacteria identified Aer cx N om (Unsp spec)Ordered By: Ana María Petitti on 08-21-2021 Superficial Wound Culture Staphylococcus aureus [facility] Superficial Wound Cultureon 08-21-2021 Superficial Wound [...] RESISTANT TO ALL B-LACTAM DRUGS. PERFORMED BY: [place] [address] PATHOLOGIST OUT AND OUT [employer] HAND MERVIN ADHIKARI M.D. Normal [facility] Comment on above: Performed By: #### CUSUP #### [address] Na 02-09-2017 CNOV Office Visit (WHITNEY) --LAWSON MAXWELL ([id number]) 1945 MDate Time Provider Oxntbivuun85/27/17 JORDAN GARCIA (PA) During your visit today, we recorded the following information about you: Temperature Pulse Respiration Blood pressure 98.6 degrees 61/minute 18/minute 138/59Paulettla Garcia PA-C 02/09/2017 2:24 PM AddendumPatient Name: Lawson CaballeroRN: [id number] For Visit: Long-Term Visit at [facility] for a follow up fordischarge visit.Past [...] negativeFamily/Social History: Unchanged, see HANDamp;P.Medications: REVIEWED IN CARE HOME CHARTObjective Data:BP 138/59 Pulse 61 Temp [...] Status:Closed by JORDAN GARCIA on 02/09/17 Normal [facility] PROGRESSon 02-09-2017 PROGRESS HNO ID: [id number] thor: Jordan Cowart) GrantService: (none)Author Type: Physician AssistantType: Progress NotesFiled: 02/09/2017 2:24 PMNote Text:Patient Name: Lawson HardenvyMRN: [id number] For Visit: Long-Term Visit at [facility] for a follow upfor discharge visit.Past [...] negativeFamily/Social History: Unchanged, see HANDP.Medications: REVIEWED IN CARE HOME CHARTObjective Data:BP 138/59 Pulse 61 Temp [...] safety.Signature: JUHI Reinoso-CDate: February 09, 2017 Normal [facility] PROGRESSon 01-27-2017 PROGRESS HNO ID: [id number] thor: Giulia Casas EreTammiervice: (none)Author Type: PhysicianType: Progress NotesFiled: 01/30/2017 10:27 AMNote Text: [facility] NOTENAME: ZONIA MAXWELL NO.: [id number] OF SERVICE: 01/27/2017[facility] 1945He is sitting up. He [...] pravastatin therapy.DICTATED BY: Giulia Hollis MDIAE/AcusisD:01/27/2017 JOB# [id number]:[facility] Westlectronically Signed by Giulia Hollis MD at 01/30/2017 10:19:29 Normal [facility] CNOVon 12-26-2016 CNOV Office Visit (WHITNEY) --LAWSON MAXWELL ([id number]) 1945 [facility] Wlefmemtxe15/13/17 JORDAN GARCIA (PA) During your visit today, we recorded the following information about you: Temperature Pulse Respiration Blood pressure 98.4 degrees 64/minute 18/minute 112/70Paulettla Garcia PA-C 12/26/2016 2:27 PM SignedPatient Name: Lawson Lieberman Alisha: [id number] For Visit: Long-Term Visit at [facility] for a monthly visit.Past Medical Hx: [...] negativeFamily/Social History: Unchanged, see HANDamp;P.Medications: REVIEWED IN CARE HOME CHARTObjective Data:BP 112/70 Pulse 64 Temp [...] FOR* Status:Closed by JORDAN GARCIA on 12/26/16 [facility] PROGRESSon 12-26-2016 PROGRESS HNO ID: [id number] thor: Jordan Cowart) GrantService: (none)Author Type: Physician AssistantType: Progress NotesFiled: 12/26/2016 2:27 PMNote Text:Patient Name: Lawson DesirilvyMRN: [id number] For Visit: Long-Term Visit at [facility] for a monthlyvisit.Past Medical Hx: No [...] negativeFamily/Social History: Unchanged, see HANDP.Medications: REVIEWED IN CARE HOME CHARTObjective Data:BP 112/70 Pulse 64 Temp [...] safety.Signature: MIN ReinosoCDate: December 26, 2016 Normal [facility] PROGRESSon 12-01-2016 PROGRESS HNO ID: [id number] thor: Giulia Caballeroice: (none)Author Type: PhysicianType: Progress NotesFiled: 12/02/2016 5:17 PMNote Text: [facility] NOTENAME: ZONIA MAXWELL NO.: [id number] OF SERVICE: 12/01/2016[place]DATE OF : 1945He is resting in [...] on pravastatin therapy.DICTATED BY: Giulia Hollis MDIAE/AcusisD:12/01/2016 [facility]# [id number]:Ady [facility] Signed by Giulia Hollis MD at 12/02/2016 17:13:10 Normal [facility] PROGRESSon 11-01-2016 PROGRESS HNO ID: [id number] thor: Maggie Westfall ([facility]) Hubert: (none)Author Type: Nurse PractitionerType: Progress NotesFiled: 11/05/2016 12:57 PMNote Text: [facility] NOTENAME: MADISONLAZ ZONIA NO.: [id number] OF SERVICE: 11/01/2016Ady Huerta OF : 1945Seen [...] can ambulate with assistance, but he needs 9-kh-[id number] to walk a few steps. He is [...] attend physical therapy.DICTATED BY: JANEY SKINNER/RickeysD:11/01/2016 VERO# [id number]:Ady Powelllectronicsamara Signed by MAYITO KRAFT CNP at 11/05/2016 12:43:45 Normal [facility] CNOVon 10-30-2016 CNOV Office Visit (WHITNEY) --LAWSON MAXWELL ([id number]) 1945 MDate Time Provider Department10/30/16 RUT DOMINGUEZ (KAY) WHITNEY During your visit today, we recorded the following information about you: Temperature Pulse Respiration Blood pressure 97.4 degrees 62/minute 18/minute 142/70 Weight 98.4 kgRut Dominguez CNP 10/30/2016 4:33 PM SignedPatient Name: Lawson Lieberman AureaN: [id number] For Visit: Long-Term Visit at [facility] for a Acute for Left hip and [...] see HANDamp;P.?Medications: see current medication list in [facility] chart, reviewed(Medications in [facility] may not accurate, please see update in [facility] chart)?Objective Data:BP 142/70 Pulse 62 Temp [...] I69.3545. Essential hypertension - ICD9: 401.9, ICD10: [id number] () 1/2 tab bid + q6 prnCont' [...] by RUT DOMINGUEZ CNP on 10/30/16 Normal [facility] PROGRESSon 10-30-2016 PROGRESS HNO ID: [id number] thor: Rut (Kay) AngeloService: (none)Author Type: Nurse PractitionerType: Progress NotesFiled: 10/30/2016 4:33 PMNote Text:Patient Name: Lawson RingyMRN: [id number] For Visit: Long-Term Visit at [facility] for a Acute forL eft hip and [...] see HANDP.?Medications: see current medication list in [facility] chart, reviewed(Medications in [facility] may not accurate, please see update in [facility] chart)?Objective Data:BP 142/70 Pulse 62 Temp [...] I69.3545. Essential hypertension - ICD9: 401.9, ICD10: [id number] (5325) 1/2 tab bid + q6 prnCont' current meds regimenLab: ua+ c/sLS spine AND hip xrayPT consultObserve condition AND behaviorDiscuss plan of care w R AND staffI'll make no further changes at this time. We will continue to monitor foroverall comfort, function and safety.Signature: Rut Dominguez CNPDate: October 30, 2016 Normal [facility] PROGRESSon 10-02-2016 PROGRESS HNO ID: [id number] thor: Giulia Casas ErenService: (none)Author Type: PhysicianType: Progress NotesFiled: 10/03/2016 5:28 PMNote Text: [facility] NOTENAME: LAWSON MAXWELLTRISTANWILNER NO.: [id number] OF SERVICE: 10/02/2016Ady Aguilera is up and [...] pravastatin therapy.DICTATED BY: Giulia Hollis MDIAE/AcusisD:10/02/2016 JOB# [id number]:[place] Normal [facility] Social History Date Type Detail Facility Start: 03-08-2019 Tobacco smoking stat us NHIS Never smoked tobacco (finding) [facility] Start: 1945 Sex Assigned At Male F [facility] Evaluation note Note Date & Type Note Facility Evaluation note No assessment information availa ble [facility] Work Phone: Summary Purpose Family [...] section and content) DATE CREATED AUTHOR 09/08/2017 [facility] DATE CREATED AUTHOR AUTHOR'S ORGANIZ ATION 09/10/2021 [facility] DATE CREATED AUTHOR AUTHOR'S ORGANIZ ATION 04/13/2023 [facility] EPIC Care Teams (unrecognized sec [...] BE BASED ON THE PRIMARY CLINICAL RECORDS. [facility] [employer] [facility]. provides no warranty or guarantee of the accuracy or completeness of information in this document.
--- NOTE | 2023-08-20 11:09 | MR_ITS ---
The [address] [address] Patient Name: LAWSON MAXWELL MRN: [facility]:[id number] date: 1945 Sex: M Assigned Patient Location: [place] Current Patient Location: [place] Accession/Order Number: [id number] Exam Date: 08/20/2023 12:00 Report Date: 08/20/2023 13:14 At the request of: SHAIKH SETH Procedure: MR head/brain wo con EXAM: MR head/brain wo con HISTORY: stroke COMPARISON: CT head and CTA head and neck performed the same day and reported separately. TECHNIQUE: Multiplanar multisequence MR imaging of the brain was performed without intravenous contrast. FINDINGS: Calvarium/skull base: No focal marrow replacing lesion suggestive of neoplasm. Orbits: Grossly unremarkable. Paranasal sinuses: Imaged portions clear Brain: No restricted diffusion. Remote right robledo radiata/centrum semiovale infarct. Small remote infarct involving the lateral right thalamus and posterior limb of the internal capsule. Mild to moderate superimposed patchy areas of T2 FLAIR signal hyperintensity which most commonly relates to sequela small vessel disease. No mass effect, hemorrhage, or hydrocephalus. Grossly normal flow-related signal in the major intracranial arteries and dural sinuses. MR/MR head/brain wo con IMPRESSION: 1. No acute ischemia. 2. 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 3. Moderate supratentorial white matter change which while nonspecific in this age group most commonly relates to sequela small vessel disease. Electronically authenticated by: MARTIAN FLETCHER Date: 08/20/2023 13:14
--- NOTE | 2023-08-20 11:15 | PM.HP ---
HPI H&P: HPI History of Present Illness Chief complaint: WEAKNESS, STROKE LIKE SYMPTOMS, RIGHT LEG WEAKNESS Narrative: 78 y o male, wheelchair bound with left sided hemiparesis from prior stroke, fell at extended care facility from his wheelchair and felt that his right side, especially right leg was weak as he could not quite pull himself/put weight on his right side. Prior to this incident, he was in his usual state of health and did not notice anything unusual. He has no active complaints to offer currently. He does not have a good explanation for why he did not seek evaluation upon symptoms onset. He was evaluated in ED today, in consultation with tele stroke and was recommended to have an MRI. On my evaluation, he has no evidence of right-sided weakness and patient also feels that he does not have those symptoms anymore. He denies chest pain, shortness of breath, cough, fever, chills, nausea, vomiting, abdominal pain, constipation, diarrhea. He does have mild facial asymmetry from prior stroke and denies any new neurological signs or symptoms currently. Opioid HPI Opioid Management Most Recent Opioid Data: Last Pain Assessment 08/20/23 10:55 Last ORT Total Score 0 08/20/23 10:55 Last ORT Risk Category Low Risk 08/20/23 10:55 Review of Systems ROS Status of ROS 10 or more systems reviewed and unremarkable except as noted in history and below [facility] Medical History (Updated 08/20/23 @ 11:22 by Shaikh Jey MD) Hemiparesis affecting left side as late effect of cerebrovascular accident ?I69.354 - Hemiplegia and hemiparesis following cerebral infarction affecting left non-dominant side (ICD-10) H/O: CVA (cerebrovascular accident) ?Z86.73 - Personal history of transient ischemic attack (TIA), and cerebral infarction without residual deficits (ICD-10) Urine retention ?R33.9 - Retention of urine, unspecified (ICD-10) Anxiety ?F41.9 - Anxiety disorder, unspecified (ICD-10) Hyperlipidemia ?E78.5 - Hyperlipidemia, unspecified (ICD-10) Hypertension ?I10 - Essential (primary) hypertension (ICD-10) Diabetes ?E11.9 - Type 2 diabetes mellitus without complications (ICD-10) Coronary artery disease ?I25.10 - Atherosclerotic heart disease of [place] coronary artery without angina pectoris (ICD-10) BPH (benign prostatic hyperplasia) ?N40.0 - Benign prostatic hyperplasia without lower urinary tract symptoms (ICD-10) A-fib ?I48.91 - Unspecified atrial fibrillation (ICD-10) Right-sided cerebrovascular accident (CVA) ?I63.9 - Cerebral infarction, unspecified (ICD-10) Social History (Updated 08/20/23 @ 10:30 by Martha Islas) Within the past year, how often did you have a drink containing alcohol: never Score interpretation: A score less than 4 is consistent with normal alcohol consumption. Smoking status: Never smoker Non-prescribed substance use: denies use Previous occupational history: retired Meds Home Medications and Allergies Home Medications ?Medication ?Instructions ?Recorded ?Confirmed ?Type acetaminophen 500 mg tablet 1,000 mg PO BID 08/20/23 08/20/23 History apixaban 5 mg tablet (Eliquis) 5 mg PO Q12H 08/20/23 08/20/23 History aspirin 81 mg chewable tablet 81 mg PO DAILY 08/20/23 08/20/23 History cholecalciferol (vitamin D3) 50 50 mcg PO DAILY 08/20/23 08/20/23 History mcg (2,000 unit) tablet dulaglutide 3 mg/0.5 mL 3 mg subcut .08/20/23 08/20/23 History subcutaneous pen injector (Trulicity) duloxetine 60 mg capsule,delayed 60 mg PO DAILY 08/20/23 08/20/23 History release dutasteride 0.5 mg capsule 0.5 mg PO DAILY 08/20/23 08/20/23 History empagliflozin 10 mg tablet 10 mg PO DAILY 08/20/23 08/20/23 History (Jardiance) ezetimibe 10 mg tablet 10 mg PO DAILY 08/20/23 08/20/23 History famotidine 40 mg tablet 40 mg PO BEDTIME 08/20/23 08/20/23 History losartan 25 mg tablet 25 mg PO DAILY 08/20/23 08/20/23 History metoprolol tartrate 25 mg tablet 25 mg PO BID 08/20/23 08/20/23 History mirabegron 50 mg tablet,extended 50 mg PO DAILY 08/20/23 08/20/23 History release 24 hr (Myrbetriq) ondansetron HCl 4 mg tablet 4 mg PO Q6H PRN nausea and vomiting 08/20/23 08/20/23 History potassium chloride 20 mEq 20 meq PO DAILY 08/20/23 08/20/23 History tablet,extended release(part/cryst) quetiapine 50 mg tablet 50 mg PO BEDTIME 08/20/23 08/20/23 History rosuvastatin 20 mg tablet 20 mg PO BEDTIME 08/20/23 08/20/23 History tamsulosin 0.4 mg capsule 0.4 mg PO BID 08/20/23 08/20/23 History trazodone 50 mg tablet 50 mg PO BEDTIME 08/20/23 08/20/23 History Allergies Allergy/AdvReac Type Severity Reaction Status Date / Time No Known Drug Allergies Allergy Verified 08/20/23 06:38 Exam Constitutional Vital Signs, click to edit/add: Last Vital Signs Temp 97.7 F 08/20/23 06:34 Pulse 92 H 08/20/23 09:39 Resp 20 08/20/23 09:39 BP 167/98 H 08/20/23 09:39 Pulse Ox 97 08/20/23 09:39 O2 Del Method Room Air 08/20/23 06:34 Documenting provider has reviewed patient's vital signs: yes Common normals: no apparent distress and oriented x3 General appearance: cooperative HENMT Common normals: normocephalic and head/scalp atraumatic Head and scalp: normocephalic and atraumatic Eye Common normals: conjunctivae normal and no scleral icterus Conjunctiva: conjunctiva(e) normal Respiratory Common normals: normal respiratory effort and clear to auscultation bilaterally Effort & inspection: able to speak in complete sentences Auscultation: clear to auscultation bilaterally Cardio Common normals: regular rate, S1 normal heart sound and S2 normal heart sound Rate: regular rate Heart sounds: S1 normal and S2 normal GI Common normals: Normal to inspection, nondistended, normoactive bowel sounds present, soft to palpation, non-tender and no hepatosplenomegaly Palpation: soft and no hepatosplenomegaly Extremity Common normals: no clubbing, cyanosis or edema Neuro Common normals: oriented x3 and moves all extremities Speech: speech normal Gait (neuro): unable to assess gait Motor exam: strength abnormal (left UE spastic paresis from prior stroke) left upper extremity 2 / 5 , left lower extremity 3 / 5 Other: facial asymmetry from prior stroke. Psych Common normals: mental status grossly normal, denies hallucinations, denies homicidal ideation and denies suicidal ideation Results Labs Labs: Short CBC 08/20/23 Range/Units 06:56 WBC 5.9 (4.0-11.0) 10^3/uL Hgb 15.5 (14.0-18.0) g/dL Hct 46.9 (42.0-54.0) % Plt Count 164 (150-450) 10^3/uL BMP 08/20/23 06:56 Sodium 142 Potassium 4.2 Chloride 104 Carbon Dioxide 30.4 BUN 16.0 Creatinine 0.93 Glucose 135 H Calcium 9.0 Cardiac Enzymes 08/20/23 Range/Units 06:56 Total Creatine Kinase 120 (39-308) U/L Liver Function 08/20/23 Range/Units 06:56 Total Bilirubin 2.1 H (0.2-1.0) mg/dL AST 20 (15-37) U/L ALT 34 (16-63) U/L Alkaline Phosphatase 54 (46-116) U/L Albumin 3.6 (3.4-5.0) g/dL Assessment and Plan Assessment and Plan (1) Stroke-like symptom: Assessment and Plan: Right sided subjective weakness, especially LE but now resolved. I am not quite sure if he truly had neurological weakness on right side or it was just that he felt and could not bear weight after fall. No fx, dislocation. MRI brain as per tele stroke given his prior hx of CVA. No acute finding on CTH. No sig large vessel occlusion on CTA head/neck that will require inpatient intervention. Cw/ ASA, eliquis as before. PT/OT eval. F/u tele stroke recs after MRI. (2) Hemiparesis affecting left side as late effect of cerebrovascular accident: Assessment and Plan: From prior CVA, wheelchair bound, lives at extended care facility. PT/OT eval (3) H/O: CVA (cerebrovascular accident): Assessment and Plan: In 2015, on ASA, eliquis,statin C/w same. (4) A-fib: Assessment and Plan: in NSR. On Eliquis for stroke px. C/w same. Qualifiers: Atrial fibrillation type: paroxysmal Qualified Code(s): I48.0 - Paroxysmal atrial fibrillation (5) Hyperlipidemia: Assessment and Plan: C/w codie chaudhry. check lipid panel. Qualifiers: Hyperlipidemia type: unspecified Qualified Code(s): E78.5 - Hyperlipidemia, unspecified (6) Hypertension: Assessment and Plan: Above goal, allow permissive HTN as possible stroke/TIA being worked up. C/w home medications. No IV drugs. Qualifiers: Hypertension type: primary hypertension Qualified Code(s): I10 - Essential (primary) hypertension (7) Diabetes: Assessment and Plan: C/w ssi, jardiance. hold trulicity. Qualifiers: Diabetes mellitus type: type 2 Diabetes mellitus intermediate frame tender insulin use: without fpc use Diabetes mellitus complication status: without complication Qualified Code(s): E11.9 - Type 2 diabetes mellitus without complications (8) Coronary artery disease: Assessment and Plan: no cp, sob. c/w ASA, bb, statin Qualifiers: Coronary Disease-Associated Artery/Lesion type: [place] artery [place] vs. transplanted heart: [place] heart Associated angina: without angina Qualified Code(s): I25.10 - Atherosclerotic heart disease of [place] coronary artery without angina pectoris
--- NOTE | 2023-08-20 11:27 | CA_ITS ---
Patient Name: LAWSON MAXWELL MR#: [id number] : 1945 Exam Date: 08/20/2023 Ordering Doctor: Shaikh Gisell Khanna . ECHOCARDIOGRAM REPORT PROCEDURE: CA ECHO DOPPLER COMPLETE INDICATIONS: stroke atrial fibrillation, hypertension, h/o CVA, diabetes COMPARISON: None. DESCRIPTION: COMPLETE ECHOCARDIOGRAM Real-time transthoracic echocardiography with 2D, M-mode, spectral and color flow Doppler performed. QUALITY: Technically difficult due to patients condition. 75 , 218#, BP 173/94 LEFT VENTRICLE: Normal chamber size. Thickened septal wall. Systolic function is difficult to assess but appears normal. LV EF: Normal left ventricular ejection fraction, (>55%). DIASTOLIC: Not adequately assessed due to heart rhythm. ATRIAL SEPTUM: Visually appears intact. LEFT ATRIUM: Normal chamber size. RIGHT ATRIUM: Normal chamber size. RIGHT VENTRICLE: Normal chamber size. Normal systolic function. TRICUSPID VALVE: Normal mobility and thickness. no regurgitation. MITRAL VALVE: Mildly thickened with normal mobility. Mild mitral annular calcification. Trivial mitral regurgitation. AORTIC VALVE: Normal trileaflet appearance. Normal leaflet mobility. No evidence of aortic valve stenosis. No aortic regurgitation. AORTIC ROOT: Normal diameter and appearance. PULMONIC VALVE: Not well visualized. PERICARDIUM: No evidence of pericardial effusion. IVC: IVC is normal in size, does not collapse. PLEURA: CONCLUSION: 1. Technically difficult study with poor sound transmission. 2. Normal ventricular systolic function. LVEF is estimated at 55%. 3. No significant valvular dysfunction. Adult Echocardiography Procedure Report Left Ventricle LVEDD (3.7 - 5.6 cm): 4.97 cm LVESD (2.2 - 4.0 cm): 2.93 cm LVIVS thickness (0.6 - 1.2 cm): 1.74 cm LVPW thickness (0.5 - 1.0 cm): 1.25 cm LVOT Max Gradient: 1.58 mm[Hg] LVOT Area (cm2): 0.63 m/s Peak Velocity (LVOT): 0.63 m/s Mean Velocity (LVOT): 0.49 m/s LVOT Diameter 2.40 cm Left Atrium LA Volume Index (2D A2C): 26.17 ml/m2 Left Atrium Systolic Dimension: 4.35 cm Mitral Valve Mitral Valve E-Wave Peak Velocity: 0.77 m/s Right Ventricle Aorta AO Root Diam: 3.65 cm Aortic Valve AoV Area (Peak Berry): 2.63 cm2, 2.63 cm2 AoV Area (VTI): 3.44 cm2, 3.44 cm2 Peak Velocity(Antegrade Flow): 1.08 m/s Peak Gradient(Antegrade Flow): 4.68 mm[Hg] Mean Velocity(Antegrade Flow): 0.73 m/s Mean Gradient(Antegrade Flow): 2.47 mm[Hg] Velocity Time Integral: 17.00 cm Tricuspid Valve Pulmonic Valve Peak Velocity: 0.58 m/s Peak Gradient: 1.35 mm[Hg] Right Atrium Dictated by: Richard Cordova M.D. on 08/20/2023 at 17:03 Approved by: Richard Cordova M.D. on 08/20/2023 at 17:07
--- NOTE | 2023-08-20 11:28 | SWNOTE1 ---
SW reached out to Nanette at [facility] to see if pt was from [facility].
--- NOTE | 2023-08-20 12:04 | SWNOTE1 ---
Pt is from [facility]
[2023-08-20 12:41] LABS: Chol HDL Ratio 2.3; Cholesterol 122 mg/dL (<=200); HDL Cholesterol 54 mg/dL (40-60); Triglycerides 110 mg/dL (<=150)
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
--- NOTE | 2023-08-20 14:49 | SWNOTE1 ---
RAISA spoke to Nanette at [facility] in regards to pt coming back to [place]. She requested we send over updated clinical information so they can review and determine if he is safe to return to [place]. If he is not, Nanette let RAISA know he could come to [facility] [place] under his medicaid and get therapy under his Medicare part B 3 times a week. Medicaid would cover the room and board.
[2023-08-20] MEDS: HYDRALAZINE HCL 20 MG/ML VIAL 10 MG IVP (15:25)
[2023-08-20] MEDS: LOSARTAN POTASSIUM 50 MG TABLET 100 MG PO (15:28)
--- NOTE | 2023-08-20 15:46 | SWNOTE1 ---
RAISA received message from Nanette at [facility] and she is waiting to talk to Piper at [facility] to get confirmation, but they think pt can go back to [place]. Nanette will message RAISA once she gets the confirmation.
[2023-08-20] MEDS: FAMOTIDINE 20 MG TABLET 40 MG PO (21:15)
[2023-08-20] MEDS: TAMSULOSIN HCL 0.4 MG CAPSULE 0.400000000000000022 MG PO (21:15)
[2023-08-20] MEDS: QUETIAPINE FUMARATE 25 MG TABLET 50 MG PO (21:15)
[2023-08-20] MEDS: METOPROLOL TARTRATE 25 MG TABLET PO (21:15)
[2023-08-20] MEDS: APIXABAN 5 MG TABLET PO (21:15)
[2023-08-20] MEDS: ACETAMINOPHEN 500 MG TABLET 1000 MG PO (21:15)
[2023-08-20] MEDS: TRAZODONE HCL 50 MG TABLET PO (21:15)
[2023-08-20 21:26] LABS: Bilirubin Urine NEGATIVE (NEGATIVE); Blood Urine NEGATIVE (NEGATIVE); Clarity Urine CLEAR (CLEAR); Color Urine YELLOW (YELLOW); Glucose Urine UA >=1000 mg/dL (NEGATIVE); Ketones Urine 15 mg/dL (NEGATIVE); Leukocyte Esterase Urine NEGATIVE (NEGATIVE); Nitrite Urine NEGATIVE (NEGATIVE); Protein Urine NEGATIVE (NEG/TRACE); pH Urine 6.5 (5.0-9.0)
[2023-08-20 21:32] LABS: Bacteria Urine NONE SEEN #/HPF (NONE SEEN); Cast Seen? NONE SEEN #/LPF (NONE SEEN); Crystals Seen? None Seen #/HPF (None Seen); Mucus Urine NONE SEEN (NONE SEEN); RBC Urine 0-2 #/HPF (0-2); Squamous Epithelial Cell Urine NONE SEEN #/LPF (NONE/RARE); WBC Urine NONE SEEN #/HPF (NONE SEEN)
[2023-08-21] VITALS: PULSE 82
[2023-08-21 02:00] VITALS: PULSE 88
[2023-08-21 04:00] VITALS: PULSE 75
[2023-08-21 04:11] VITALS: BP 154/93; PULSE 90; TEMP 36.5; O2SAT 96
[2023-08-21 06:00] VITALS: PULSE 83
--- OUTSIDE RECORDS SUMMARY | 2023-08-21 06:07 | XMS_ITS | CCD ---
Author Organization [facility] Inform ion Partnership [facility] Care Team Providers Care Lens Grinder Rough Name Role Phone JR Eliud Echevarria Primary [...] ML PO Daily March 03, 2019 5:56pm Nlygr-Sfcdz-Nnkvd-Sibe justino Fir (Vicks Vapoinhaler) Inhaler (2 sources) Start: 03-03-2019 Hgkrk-Xlfqs-Hsmbt -Siberian Fir (Vicks Vapoinhaler) Inhaler Active 1 [...] RESISTANT TO ALL B-LACTAM DRUGS. PERFORMED BY: [place] [id number] PATHOLOGIST PROPERTY DEVELOPER MERVIN ADHIKARI M.D. [facility] Comment on above: Performed By: #### CUSUP #### [address] Bacteria identified Aer cx N om (Unsp spec)Ordered By: Ana María Valiente on 08-21-2021 Superficial Wound Culture Staphylococcus aureus [facility] Superficial Wound Cultureon 08-21-2021 Superficial Wound [...] RESISTANT TO ALL B-LACTAM DRUGS. PERFORMED BY: [place] [id number] PATHOLOGIST PROPERTY DEVELOPER MERVIN ADHIKARI M.D. [facility] Comment on above: Performed By: #### CUSUP #### [address] CNOVon 02-09-2017 CNOV Office Visit (WHITNEY) --HANSLAWSON ([id number]) 1945 MDate Time Provider Ywaahgsihq24/27/17 JORDAN GARCIA (PA) During your visit today, we recorded the following information about you: Temperature Pulse Respiration Blood pressure 98.6 degrees 61/minute 18/minute 138/59Palinda Garcia PA-C 02/09/2017 2:24 PM AddendumPatient Name: Lawson Lieberman FedericoRN: [id number] For Visit: Long Term Visit at [facility] for a follow up fordischar visit.Past Medical [...] Status:Closed by JORDAN GARCIA on 02/09/17 Normal [facility] PROGRESSon 02-09-2017 PROGRESS HNO ID: [id number] thor: Jordan (Steve) GrantService: (none)Author Type: Physician AssistantType: Progress NotesFiled: 02/09/2017 2:24 PMNote Text:Patient Name: Lawson HardenvyMRN: [id number] For Visit: Long Term Visit at [facility] for a follow upfor discharge visit.Past Medical [...] safety.Signature: STEVE Reinoso-CDate: February 09, 2017 Normal [facility] PROGRESSon 01-27-2017 PROGRESS HNO ID: [id number] thor: Giulia Casas ErenService: (none)Author Type: PhysicianType: Progress NotesFiled: 01/30/2017 10:27 AMNote Text: [facility] NOTENAME: ZONIA MAXWELL NO.: [id number] OF SERVICE: 01/27/2017[place] GardensDATE OF : 1945He [...] pravastatin therapy.DICTATED BY: Giulia Hollis MDIAE/AcusisD:01/27/2017 JOB# [id number]:[facility] Signed by Giulia Hollis MD at 01/30/2017 10:19:29 Normal [facility] CNOVon 12-26-2016 CNOV Office Visit (WHITNEY) --LAWSON MAXWELL ([id number]) 1945 [facility] Time Provider Dnqmpayoeh24/13/17 JORDAN GARCIA (PA) During your visit today, we recorded the following information about you: Temperature Pulse Respiration Blood pressure 98.4 degrees 64/minute 18/minute 112/70Paulettla Garcia PA-C 12/26/2016 2:27 PM SignedPatient Name: Lawson Lieberman FinavyMRN: [id number] For Visit: Long Term Visit at [facility] for a monthly visit.Past Medical Hx: No [...] Status:Closed by JORDAN GARCIA on 12/26/16 Normal [facility] PROGRESSon 12-26-2016 PROGRESS HNO ID: [id number] thor: Jordan (Steve) GrantService: (none)Author Type: Physician AssistantType: Progress NotesFiled: 12/26/2016 2:27 PMNote Text:Patient Name: Lawson HardenvyMRN: [id number] For Visit: Long Term Visit at [facility] for a monthlyvisit.Past Medical Hx: No past [...] safety.Signature: STEVE Reinoso-CDate: December 26, 2016 Normal [facility] PROGRESSon 12-01-2016 PROGRESS HNO ID: [id number] thor: Giulia Ngoervice: (none)Author Type: PhysicianType: Progress NotesFiled: 12/02/2016 5:17 PMNote Text: [facility] NOTENAME: ZONIA MAXWELL NO.: [id number] OF SERVICE: 12/01/2016[place] GardensDATE OF : 1945He [...] pravastatin therapy.DICTATED BY: Giulia Hollis MDIAE/AcusisD:12/01/2016 JOB# [id number]:[facility] Hospitallectronically Signed by Giulia Hollis MD at 12/02/2016 17:13:10 Normal [facility] PROGRESSon 11-01-2016 PROGRESS HNO ID: [id number] thor: Maggie Westfall (Kay) Hubert: (none)Author Type: Nurse PractitionerType: Progress NotesFiled: 11/05/2016 12:57 PMNote Text: [facility] NOTENAME: DELFINOCatiaLAWSONREGINA NO.: [id number] OF SERVICE: 11/01/2016[facility] 1945Seen today after review of [...] can ambulate with assistance, but he needs [id number]-qg-[id number] to walk a few steps. He is [...] attend physical therapy.DICTATED BY: JANEY SKINNER/AnibalusisD:11/01/2016 VERO# [id number]:[facility] Hospital[facility] Signed by MAYITO KRAFT CNP at 11/05/2016 12:43:45 Normal [facility] CNOVon 10-30-2016 CNOV Office Visit (WHITNEY) --LAWSON MAXWELL ([id number]) 1945 MDate Time Provider Department10/30/16 RUT DOMINGUEZ (KAY) WHITNEY During your visit today, we recorded the following information about you: Temperature Pulse Respiration Blood pressure 97.4 degrees 62/minute 18/minute 142/70 Weight 98.4 kgJonomarquise KAY Dominguez 10/30/2016 4:33 PM SignedPatient Name: Lawson CaballeroRN: [id number] For Visit: Long Term Visit at [facility] for a Acute for Left hip and [...] see HANDamp;P.?Medications: see current medication list in [facility] chart, reviewed(Medications in [facility] may not accurate, please see update in [facility] chart)?Objective Data:BP 142/70 Pulse 62 Temp [...] I69.3545. Essential hypertension - ICD9: 401.9, ICD10: [id number] () 1/2 tab bid + q6 prnCont' [...] by RUT DOMINGUEZ CNP on 10/30/16 Normal [facility] PROGRESSon 10-30-2016 PROGRESS HNO ID: [id number] thor: Rut (Kay) AngeloService: (none)Author Type: Nurse PractitionerType: Progress NotesFiled: 10/30/2016 4:33 PMNote Text:Patient Name: Lawson DesirgreysonvyMRN: [id number] For Visit: Long Term Visit at [facility] for a Acute forL eft hip and [...] see HANDP.?Medications: see current medication list in [facility] chart, reviewed(Medications in [facility] may not accurate, please see update in [facility] chart)?Objective Data:BP 142/70 Pulse 62 Temp [...] I69.3545. Essential hypertension - ICD9: 401.9, ICD10: [id number] (5/325) 1/2 tab bid + q6 prnCont' current meds regimenLab: ua+ c/sLS spine AND hip xrayPT consultObserve condition AND behaviorDiscuss plan of care w R AND staffI'll make no further changes at this time. We will continue to monitor foroverall comfort, function and safety.Signature: Rut Dominguez CNPDate: October 30, 2016 Normal [facility] PROGRESSon 10-02-2016 PROGRESS HNO ID: [id number] thor: Itri Yessenia ErenService: (none)Author Type: PhysicianType: Progress NotesFiled: 10/03/2016 5:28 PMNote Text: [facility] NOTENAME: ZONIA MAXWELL NO.: [id number] OF SERVICE: 10/02/2016Ady Aguilera is up and [...] pravastatin therapy.DICTATED BY: Giulia Hollis MDIAE/AcusisD:10/02/2016 JOB# [id number]:[facility] Hospital[facility] Signed by Giulia Hollis MD at 10/03/2016 17:10:48 Normal [facility] Encounters Encounter Date Encounter Type Care Provider Facility Start: 04-13-2023 End: 04-13-2023 ambulatory ALLEN [facility] Not Available Start: 08-28-2021 End: 08-28-2021 Departed Referred JR Eliud Echevarria Work Phone: [facility] [place] Start: 08-21-2021 End: 08-21-2021 Departed Referred JR Eliud Echevarria Work Phone: [facility] [place] Procedures Date Procedure Procedure Detail Performing Clinician Start: 08-21-2021 Aerobic microbial culture JR Eliud Echevarria Work Phone: Plan of Treatment Date Care Activity Detail Author Start: 08-28-2021 Superficial Wound Culture Superficial Wound Culture [facility] Start: 08-21-2021 Superficial Wound Culture Superficial Wound Culture [facility] Bacteria identified in Unspecified specimen by Aerobe culture [facility] Work Phone: Payers Date Payer Category Payer Medicaid [id number] 2012 Medicare [id number] 1945 Unknown [id number] Medicaid [employer] [id number] Medicare Medicare [id number] Self-pay Self Pay [id number] Social History Date Type Detail Facility Start: 03-08-2019 Tobacco smoking stat us IDIS Never smoked tobacco (finding) [facility] Start: 1945 Sex Assigned At Male F [facility] Evaluation note Note Date & Type Note Facility Evaluation note No assessment information availa ble [facility] Work Phone: Summary Purpose Family History [...] section and content) DATE CREATED AUTHOR 09/08/2017 [facility] DATE CREATED AUTHOR AUTHOR'S ORGANIZ ATION 09/10/2021 [facility] DATE CREATED AUTHOR AUTHOR'S ORGANIZ ATION 04/13/2023 [facility] EPIC Care Teams (unrecognized sec [...] BE BASED ON THE PRIMARY CLINICAL RECORDS. [facility] [employer] [facility]. provides no warranty or guarantee of the accuracy or completeness of information in this document.
--- NOTE | 2023-08-21 08:09 | SWNOTE1 ---
SW received email from Nanette at [facility] and pt is able to return to [place] at discharge.
[2023-08-21] MEDS: METOPROLOL TARTRATE 25 MG TABLET PO (08:11)
[2023-08-21] MEDS: APIXABAN 5 MG TABLET PO (08:11)
[2023-08-21] MEDS: DULOXETINE HCL 60 MG CAPSULE.DR PO (08:11)
[2023-08-21] MEDS: DUTASTERIDE 0.5 MG CAPSULE PO (08:12)
[2023-08-21] MEDS: CANAGLIFLOZIN 100 MG TABLET PO (08:12)
[2023-08-21] MEDS: ASPIRIN 81 MG TAB.CHEW PO (08:12)
[2023-08-21] MEDS: EZETIMIBE 10 MG TABLET PO (08:12)
[2023-08-21] MEDS: CHOLECALCIFEROL (VITAMIN D3) 25 MCG/1,000 UNITS TABLET 50 MCG PO (08:12)
[2023-08-21] MEDS: ACETAMINOPHEN 500 MG TABLET 1000 MG PO (08:12)
[2023-08-21] MEDS: OXYBUTYNIN CHLORIDE 5 MG TAB XL 10 MG PO (08:12)
[2023-08-21] MEDS: TAMSULOSIN HCL 0.4 MG CAPSULE 0.400000000000000022 MG PO (08:12)
[2023-08-21] MEDS: LOSARTAN POTASSIUM 50 MG TABLET 100 MG PO (08:12)
--- NOTE | 2023-08-21 10:42 | PT.DAILY ---
Physical Therapy Daily Note PT Daily Note/Assess Start: 08/21/23 10:35 Freq: Status: Active Protocol: Document 08/21/23 10:10 TIFFANIE (Rec: 08/21/23 10:41 TIFFANIE [id number]) Physical Therapy Daily Note/Assessment Time In/Time Out Time In 10:10 Time Out 10:30 Subjective Subjective Feeling better. Going back to [facility] today per patient report. Does agree to PT. Therapeutic Activity Time Therapeutic Activity Minutes (minutes) 20 Therapeutic Activity Units 1 Therapeutic Activity Treatment Bed Mobility Ability Modified Independent Therapeutic Activity Comments Supine to sit Modified Ind. Able to sit unsupported without assistance. Sit to stand using R UE to push up from bed rail CGA to min assist. Patient able to come into full standing and hold for greater than 10 seconds before sitting. Patient able to complete 5 partial sit to stand while scooting from foot of bed to head of bead with SBA. Pivot to WC and back with min assist. Total Physical Therapy Time Total Therapy Minutes 20 Total Physical Therapy Units 1 Summary Daily Note Summary Patient with improved ability for sit to stand transfers and ability to transfer to . Per nursing [facility] will take patient back even if requiring assistance to . Even with improved ability this date would recommend patient have assistance with transfers and PT at [place] to improve strength and transfer ability. Patient was motivated and worked hard with therapy today. Patient was supine in bed with call light in reach and all needs met post RX.
--- NOTE | 2023-08-21 10:51 | SWNOTE1 ---
SW to see how pt does with therapy to determine how we will transport him back to [facility].
--- NOTE | 2023-08-21 11:32 | PM.DS1 ---
DS: Providers Provider Date of admission: 08/20/23 10:02 Primary care physician: BOB DENT MD Admitting clinician: Shaikh Jey Attending physician on admission: Shaikh Jey Consults: 08/20/23 08:08 Consult to Telestroke Routine Reason for consultation: right sided leg weakness Has provider been notified: Yes 08/20/23 11:14 Occupational Therapy Eval and Treat Routine Reason for consultation: Ambulatory dysfunction/weakness Physical Therapy Eval and Treat Routine Reason for consultation: Ambulatory dysfunction/weakness Attending physician on discharge: Shaikh Jey Discharging clinician: Shaikh Jey Anticipated date of discharge: 08/21/23 DS: Diagnosis Discharge Diagnosis (1) Stroke-like symptom: Assessment and plan: Resolved. Possible TIA vs non neurological musculoskeletal weakness after fall. MRI brain - no acute stroke. (2) Hemiparesis affecting left side as late effect of cerebrovascular accident: Assessment and plan: on ASA, eliquis, statin. C/w same (3) H/O: CVA (cerebrovascular accident): Assessment and plan: On ASA, eliquis, statin. C/w same (4) A-fib: Assessment and plan: In NSR. uses eliquis for stroke px Qualifiers: Atrial fibrillation type: paroxysmal Qualified Code(s): I48.0 - Paroxysmal atrial fibrillation (5) Hyperlipidemia: Assessment and plan: c/w crestor/zetia. Qualifiers: Hyperlipidemia type: unspecified Qualified Code(s): E78.5 - Hyperlipidemia, unspecified (6) Hypertension: Assessment and plan: Poorly controlled, increase losartan to 100 mg . Qualifiers: Hypertension type: primary hypertension Qualified Code(s): I10 - Essential (primary) hypertension (7) Diabetes: Assessment and plan: C/w home medications Qualifiers: Diabetes mellitus type: type 2 Diabetes mellitus prison insulin use: without buttermaker continuous churn use Diabetes mellitus complication status: without complication Qualified Code(s): E11.9 - Type 2 diabetes mellitus without complications (8) Coronary artery disease: Assessment and plan: Stable, no CP, SOB. cw ASA, bb, statin Qualifiers: Coronary Disease-Associated Artery/Lesion type: [place] artery [place] vs. transplanted heart: [place] heart Associated angina: without angina Qualified Code(s): I25.10 - Atherosclerotic heart disease of [place] coronary artery without angina pectoris DS: Summary Hospital Course Hospital Course: 78 y o male, wheelchair bound with left sided hemiparesis from prior stroke, fell at extended care facility from his wheelchair and felt that his right side, especially right leg was weak as he could not quite pull himself/put weight on his right side. Prior to this incident, he was in his usual state of health and did not notice anything unusual. Given patient's prior hx, he was admitted for obs for stroke w/u. No sig stenosis/large vessel occlusion on CTA head/neck. CTH/MRI - no acute bleeding/stroke. His symptoms had resolved by the time I evaluated him. ECHO - no sig structural abnormality. He had PT/OT eval - he was previously able to transfer to wheelchair and pivot himself but unable to do so. He is medically stable for d/c to assisted living facility where he will also have outpatient PT/OT. Status at Discharge Overall status at discharge: patient is progressing back to baseline Time Spent with Patient Time attestation: Total time spent providing and/or coordinating discharge services: Time spent: greater than 30 minutes Exam Constitutional Vital Signs, click to edit/add: Last Vital Signs Temp 97.7 F 08/21/23 04:11 Pulse 83 08/21/23 06:00 Resp 16 08/21/23 04:11 BP 154/93 H 08/21/23 04:11 Pulse Ox 96 08/21/23 04:11 O2 Del Method Room Air 08/21/23 04:11 Documenting provider has reviewed patient's vital signs: yes Common normals: no apparent distress and oriented x3 General appearance: cooperative HENMT Common normals: normocephalic and head/scalp atraumatic Head and scalp: normocephalic and atraumatic Eye Common normals: conjunctivae normal and no scleral icterus Conjunctiva: conjunctiva(e) normal Respiratory Common normals: normal respiratory effort and clear to auscultation bilaterally Effort & inspection: able to speak in complete sentences Auscultation: clear to auscultation bilaterally Cardio Common normals: regular rate, S1 normal heart sound and S2 normal heart sound Rate: regular rate Heart sounds: S1 normal and S2 normal Neuro Common normals: oriented x3 and moves all extremities Speech: speech normal Gait (neuro): unable to assess gait Motor exam: strength abnormal (left UE spastic paresis from prior stroke) Other: facial asymmetry from prior stroke. Psych Common normals: mental status grossly normal, denies hallucinations, denies homicidal ideation and denies suicidal ideation DS: Data Data Completed and Pending Labs on day of discharge: Labs from last 24 hours 08/20/23 08/20/23 21:13 06:56 Triglycerides 110 Cholesterol 122 LDL Cholesterol, Calc 46.0 VLDL Cholesterol 22.0 HDL Cholesterol 54 Cholesterol/HDL Ratio 2.3 Urine Color Yellow Urine Clarity Clear Urine pH 6.5 Ur Specific [place] 1.010 Urine Protein Negative Urine Glucose (UA) >=1000 A Urine Ketones 15 A Urine Occult Blood Negative Urine Nitrite Negative Urine Bilirubin Negative Urine Urobilinogen 4.0 A Ur Leukocyte Esterase Negative Urine RBC 0-2 Urine WBC None seen Ur Squamous Epith Cells None seen Urine Crystals None seen Urine Bacteria None seen Urine Casts None seen Urine Mucus None seen Discharge Plan Discharge Disposition: [facility] Intermediate Care [facility] Condition: Good Discharge Medications: Continued famotidine 40 mg tablet 40 mg PO BEDTIME potassium chloride 20 mEq tablet,ER particles/crystals 20 meq PO DAILY aspirin 81 mg tablet,chewable 81 mg PO DAILY ezetimibe 10 mg tablet 10 mg PO DAILY dutasteride 0.5 mg capsule 0.5 mg PO DAILY metoprolol tartrate 25 mg tablet 25 mg PO BID duloxetine 60 mg capsule,delayed release(DR/EC) 60 mg PO DAILY quetiapine 50 mg tablet 50 mg PO BEDTIME trazodone 50 mg tablet 50 mg PO BEDTIME ondansetron HCl 4 mg tablet 4 mg PO Q6H PRN (Reason: nausea and vomiting) tamsulosin 0.4 mg capsule 0.4 mg PO BID rosuvastatin 20 mg tablet 20 mg PO BEDTIME cholecalciferol (vitamin D3) 50 mcg (2,000 unit) tablet 50 mcg PO DAILY mirabegron [Myrbetriq] 50 mg tablet extended release 24 hr 50 mg PO DAILY Eliquis 5 mg tablet 5 mg PO Q12H Jardiance 10 mg tablet 10 mg PO DAILY Trulicity 3 mg/0.5 mL pen injector 3 mg SUBCUT . acetaminophen 500 mg tablet 1,000 mg PO BID Changed losartan 25 mg tablet 100 mg PO DAILY Qty: 0 0RF Print Language: Upper Sorbian Forms: Portal Instructions Follow Up Appointments: PCP in one week
[2023-08-21 11:42] VITALS: O2SAT 96
--- NOTE | 2023-08-21 11:54 | CM.NOTE ---
Rounds made with Dr. Khanna. Plan to return to [facility] today. Mr. Soliman agreeable to plan.
--- NOTE | 2023-08-21 12:01 | SWNOTE1 ---
Pt did well with PT and can transfer to wheelchair with assistance. RAISA set up trips for 1-1:30 for pt to return to [facility]. RAISA faxed over dc med rec and dc summary to [facility]. RAISA took packet to med/surge. RAISA notified Shruthi at [facility] of dc time.
== END 2023-08-21 13:15 | disposition home or self-care (01) ==
LOC: ER 09:33 → MS 08-21 06:05
PROVIDERS: Admitting Provider Internal Medicine; Emergency Provider Emergency Medicine; PCP Internal Medicine; Visit Provider Internal Medicine
DX: R53.1 Weakness (principal); I69.354 Hemiplegia and hemiparesis following cerebral infarction affecting left non-dominant side; Z99.3 Dependence on wheelchair; I48.0 Paroxysmal atrial fibrillation; E78.5 Hyperlipidemia, unspecified; I10 Essential (primary) hypertension; Z79.899 Other long term (current) drug therapy; E11.9 Type 2 diabetes mellitus without complications; I25.10 Atherosclerotic heart disease of native coronary artery without angina pectoris; Z79.82 Long term (current) use of aspirin; Z79.01 Long term (current) use of anticoagulants; Z91.81 History of falling
CPT/HCPCS: 36415; 70450; 70496; 70498; 70551; 73502; 80053; 80061; 81001; 82550; 84484; 85025; 85610; 93005; 93306; 94761; 96374; 97161; 97530; 99285; G0378; Q3014; Q9967

== ENCOUNTER 2023-08-24 01:53 | Outpatient (REF) | payer MEDICARE, MEDICAID, SELFPAY ==
--- OUTSIDE RECORDS SUMMARY | 2023-08-24 01:56 | XMS_ITS | CCD ---
Author Organization [facility] Inform ion Partnership [facility] Care Team Providers Care Aircraft Maintenance Engineer Name Role Phone JR Eliud Echevarria Primary Care Provider [phone] MD Ana María Valiente Attending Provider [phone] ALLEN FUNK Attending Unavailable Medications Current Medications [...] ML PO Daily March 03, 2019 5:56pm Cehlk-Damfz-Dwdvk-Sibe justino Fir (Vicks Vapoinhaler) Inhaler (2 sources) Start: 03-03-2019 Ojlxx-Fxsao-Dxntf -Siberian Fir (Vicks Vapoinhaler) Inhaler Active 1 [...] RESISTANT TO ALL B-LACTAM DRUGS. PERFORMED BY: [place] [address] PATHOLOGIST COMIC BOOK DESIGNER MERVIN ADHIKARI M.D. [facility] Comment on above: Performed By: #### CUSUP #### [address] Bacteria identified Aer cx N om (Unsp spec)Ordered By: Ana María Valiente on 08-21-2021 Superficial Wound Culture Staphylococcus aureus [facility] Superficial Wound Cultureon 08-21-2021 Superficial Wound [...] RESISTANT TO ALL B-LACTAM DRUGS. PERFORMED BY: [place] [id number] PATHOLOGIST COMIC BOOK DESIGNER MERVIN ADHIKARI M.D. [facility] Comment on above: Performed By: #### CUSUP #### [address] CNOVon 02-09-2017 CNOV Office Visit (WHITNEY) --HANSLAWSON ([id number]) 1945 MDate Time Provider Ebzpprzlqh59/27/17 JORDAN GARCIA (PA) During your visit today, we recorded the following information about you: Temperature Pulse Respiration Blood pressure 98.6 degrees 61/minute 18/minute 138/59Palinda Garcia PA-C 02/09/2017 2:24 PM AddendumPatient Name: Lawson Lieberman FedericoRN: [id number] For Visit: [facility]ci Visit at [facility] for a follow up fordischar visit.Past [...] negativeFamily/Social History: Unchanged, see HANDamp;P.Medications: REVIEWED IN LONG TERM CHARTObjective Data:BP 138/59 Pulse 61 Temp 37 [...] Status:Closed by JORDAN GARCIA on 02/09/17 Normal [facility] PROGRESSon 02-09-2017 PROGRESS HNO ID: [id number] thor: Jordan (Steve) GrantService: (none)Author Type: Physician AssistantType: Progress NotesFiled: 02/09/2017 2:24 PMNote Text:Patient Name: Lawson HardenvyMRN: [id number] For Visit: [facility]ci Visit at [facility] for a follow upfor discharge visit.Past [...] negativeFamily/Social History: Unchanged, see HANDP.Medications: REVIEWED IN LONG TERM CHARTObjective Data:BP 138/59 Pulse 61 Temp 37 [...] safety.Signature: STEVE Reinoso-CDate: February 09, 2017 Normal [facility] PROGRESSon 01-27-2017 PROGRESS HNO ID: [id number] thor: Giulia Casas ErenService: (none)Author Type: PhysicianType: Progress NotesFiled: 01/30/2017 10:27 AMNote Text: [facility] NOTENAME: ZONIA MAXWELL NO.: [id number] OF SERVICE: 01/27/2017[place] GardensDATE OF : 1945He [...] pravastatin therapy.DICTATED BY: Giulia Hollis MDIAE/AcusisD:01/27/2017 JOB# [id number]:[facility] Signed by Giulia Hollis MD at 01/30/2017 10:19:29 Normal [facility] CNOVon 12-26-2016 CNOV Office Visit (WHITNEY) --LAWSON MAXWELL ([id number]) 1945 [facility] Time Provider Onszfispvj10/13/17 JORDAN GARCIA (PA) During your visit today, we recorded the following information about you: Temperature Pulse Respiration Blood pressure 98.4 degrees 64/minute 18/minute 112/70Paulettla Garcia PA-C 12/26/2016 2:27 PM SignedPatient Name: Lawson Lieberman FinavyMRN: [id number] For Visit: Fci Visit at [facility] for a monthly visit.Past Medical Hx: [...] negativeFamily/Social History: Unchanged, see HANDamp;P.Medications: REVIEWED IN LONG TERM CHARTObjective Data:BP 112/70 Pulse 64 Temp 36.9 [...] Status:Closed by JORDAN GARCIA on 12/26/16 Normal [facility] PROGRESSon 12-26-2016 PROGRESS HNO ID: [id number] thor: Jordan (Steve) GrantService: (none)Author Type: Physician AssistantType: Progress NotesFiled: 12/26/2016 2:27 PMNote Text:Patient Name: Lawson HardenvyMRN: [id number] For Visit: [facility]ci Visit at [facility] for a monthlyvisit.Past Medical Hx: No [...] negativeFamily/Social History: Unchanged, see HANDP.Medications: REVIEWED IN LONG TERM CHARTObjective Data:BP 112/70 Pulse 64 Temp 36.9 [...] safety.Signature: STEVE Reinoso-CDate: December 26, 2016 Normal [facility] PROGRESSon 12-01-2016 PROGRESS HNO ID: [id number] thor: Giulia Ngoervice: (none)Author Type: PhysicianType: Progress NotesFiled: 12/02/2016 5:17 PMNote Text: [facility] NOTENAME: ZONIA MAXWELL NO.: [id number] OF SERVICE: 12/01/2016[place] GardensDATE OF : 1945He [...] pravastatin therapy.DICTATED BY: Giulia Hollis MDIAE/AcusisD:12/01/2016 JOB# [id number]:[facility] Hospital[facility]ically Signed by Giulia Hollis MD at 12/02/2016 17:13:10 Normal [facility] PROGRESSon 11-01-2016 PROGRESS HNO ID: [id number] thor: Maggie Westfall (Kay) Hubert: (none)Author Type: Nurse PractitionerType: Progress NotesFiled: 11/05/2016 12:57 PMNote Text: [facility] NOTENAME: DELFINOCatiaLAWSONREGINA NO.: [id number] OF SERVICE: 11/01/2016[facility] 1945Seen today after review [...] can ambulate with assistance, but he needs 5-rh-1kztlmdyojj to walk a few steps. He is [...] attend physical therapy.DICTATED BY: JANEY SKINNER/AnibalusisD:11/01/2016 VERO# [id number]:[facility] Hospitallectronic[facility] hospital Signed by MAYITO KRAFT CNP at 11/05/2016 12:43:45 Normal [facility] CNOVon 10-30-2016 CNOV Office Visit (WHITNEY) --LAWSON MAXWELL ([id number]) 1945 MDate Time Provider Department10/30/16 RUT DOMINGUEZ (KAY) WHITNEY During your visit today, we recorded the following information about you: Temperature Pulse Respiration Blood pressure 97.4 degrees 62/minute 18/minute 142/70 Weight 98.4 kgJonomarquise KAY Dominguez 10/30/2016 4:33 PM SignedPatient Name: Lawson CaballeroRN: [id number] For Visit: Fci Visit at [facility] for a Acute for Left hip and [...] see HANDamp;P.?Medications: see current medication list in [facility] chart, reviewed(Medications in [facility] may not accurate, please see update in [facility] chart)?Objective Data:BP 142/70 Pulse 62 Temp 36.3 [...] I69.3545. Essential hypertension - ICD9: 401.9, ICD10: [id number] () 1/2 tab bid + q6 prnCont' [...] by RUT DOMINGUEZ CNP on 10/30/16 Normal [facility] PROGRESSon 10-30-2016 PROGRESS HNO ID: [id number] thor: Rut (Kay) AngeloService: (none)Author Type: Nurse PractitionerType: Progress NotesFiled: 10/30/2016 4:33 PMNote Text:Patient Name: Lawson DesirgreysonvyMRN: [id number] For Visit: Fci Visit at [facility] for a Acute forL eft hip and [...] see HANDP.?Medications: see current medication list in [facility] chart, reviewed(Medications in [facility] may not accurate, please see update in [facility] chart)?Objective Data:BP 142/70 Pulse 62 Temp 36.3 [...] I69.3545. Essential hypertension - ICD9: 401.9, ICD10: [id number] (5/325) 1/2 tab bid + q6 prnCont' current meds regimenLab: ua+ c/sLS spine AND hip xrayPT consultObserve condition AND behaviorDiscuss plan of care w R AND staffI'll make no further changes at this time. We will continue to monitor foroverall comfort, function and safety.Signature: Rut Dominguez CNPDate: October 30, 2016 Normal [facility] PROGRESSon 10-02-2016 PROGRESS HNO ID: [id number] thor: Itri Yessenia ErenService: (none)Author Type: PhysicianType: Progress NotesFiled: 10/03/2016 5:28 PMNote Text: [facility] NOTENAME: ZONIA MAXWELL NO.: [id number] OF SERVICE: 10/02/2016Ady Aguilera is up and [...] pravastatin therapy.DICTATED BY: Giulia Hollis MDIAE/AcusisD:10/02/2016 JOB# [id number]:[facility] Signed by Giulia Hollis MD at 10/03/2016 17:10:48 Normal [facility] Encounters Encounter Date Encounter Type Care Provider Facility Start: 04-13-2023 End: 04-13-2023 ambulatory ALLEN [facility] Not Available Start: 08-28-2021 End: 08-28-2021 Departed Referred JR Eliud Echevarria Work Phone: [facility] [place] Start: 08-21-2021 End: 08-21-2021 Departed Referred JR Eliud Echevarria Work Phone: [facility] [place] Procedures Date Procedure Procedure Detail Performing Clinician Start: 08-21-2021 Aerobic microbial culture JR Eliud Echevarria Work Phone: Plan of Treatment Date Care Activity Detail Author Start: 08-28-2021 Superficial Wound Culture Superficial Wound Culture [facility] Start: 08-21-2021 Superficial Wound Culture Superficial Wound Culture [facility] Bacteria identified in Unspecified specimen by Aerobe culture [facility] Work Phone: Payers Date Payer Category Payer Medicaid [id number] 2012 Medicare [id number] 1945 Unknown [id number] Medicaid [employer] [id number] Medicare Medicare [id number] Self-pay Self Pay [id number] Social History Date Type Detail Facility Start: 03-08-2019 Tobacco smoking stat us ORIS Never smoked tobacco (finding) [facility] Start: 1945 Sex Assigned At Male F [facility] Evaluation note Note Date & Type Note Facility Evaluation note No assessment information availa ble [facility] Work Phone: Summary Purpose Family History [...] section and content) DATE CREATED AUTHOR 09/08/2017 [facility] DATE CREATED AUTHOR AUTHOR'S ORGANIZ ATION 09/10/2021 [facility] DATE CREATED AUTHOR AUTHOR'S ORGANIZ ATION 04/13/2023 [facility] dical Specialists EPIC Care Teams [...] BE BASED ON THE PRIMARY CLINICAL RECORDS. [facility]. provides no warranty or guarantee of the accuracy or completeness of information in this document.
[2023-08-24 08:37] LABS: Basophils Absolute Auto 0.1 10^3/uL (0.0-0.1); Eosinophils Absolute Auto 0.2 10^3/uL (0.0-0.7); Eosinophils Percent Auto 4.5 % (0.9-7.0); Hematocrit 47.1 % (42.0-54.0); Hemoglobin 15.7 g/dL (14.0-18.0); Immature Granulocytes Abs Auto 0.01 10^3/uL (0.00-0.03); Immature Granulocytes Pct Auto 0.2 % (0.0-0.5); Lymphocytes Absolute Auto 1.4 10^3/uL (1.2-3.8); Lymphocytes Percent Auto 27.7 % (20.5-60.0); Mean Corpuscular HGB Conc 33.3 g/dL (29.9-35.2); Mean Corpuscular Hemoglobin 31.1 pg (25.9-34.0); Mean Corpuscular Volume 93.3 fL (80.0-94.0); Mean Platelet Volume 8.8 fL (9.5-13.5); Monocytes Absolute Auto 0.5 10^3/uL (0.3-0.8); Monocytes Percent Auto 9.8 % (1.7-12.0); Neutrophils Absolute Auto 2.8 10^3/uL (1.4-6.5); Neutrophils Percent Auto 56.8 % (43.0-75.0); Platelet Count 211 10^3/uL (150-450); Red Blood Count 5.05 10^6/uL (4.70-6.10); Red Cell Distribution Width 13.6 % (11.0-15.0); White Blood Count 4.9 10^3/uL (4.0-11.0)
[2023-08-24 09:25] LABS: Alanine Aminotransferase 28 U/L (16-63); Albumin Level 3.7 g/dL (3.4-5.0); Alkaline Phosphatase 64 U/L (46-116); Anion Gap 16.2; Aspartate Amino Transferase 25 U/L (15-37); Bilirubin Direct 0.4 mg/dL (0.0-0.2); Bilirubin Total 1.8 mg/dL (0.2-1.0); Carbon Dioxide 25.6 mmol/L (21.0-32.0); Chloride 104 mmol/L (98-107); Chol HDL Ratio 2.3; Cholesterol 124 mg/dL (<=200); Estimated GFR (African America >60 (>=60); Estimated GFR (Non-African Ame >60 (>=60); Globulin 3.8 g/dL; Glucose 158 mg/dL (74-106); HDL Cholesterol 54 mg/dL (40-60); LDL Cholesterol Calculated 50.6 mg/dL; Potassium 3.8 mmol/L (3.5-5.1); Sodium 142 mmol/L (136-145); Total Protein 7.5 g/dL (6.4-8.2); Triglycerides 97 mg/dL (<=150); VLDL CHOLESTEROL 19.4 mg/dL
[2023-08-24 10:24] LABS: Erythrocyte Sedimentation Rate 37 mm/hr (<=20)
[2023-08-24 10:59] LABS: Estimated Average Glucose 146 mg/dL; Glycohemoglobin A1C 6.7 % (4.5-6.2)
== END 2023-08-24 01:54 | disposition home or self-care (01) ==
LOC: LAB 01:53
PROVIDERS: PCP Internal Medicine; Visit Provider Internal Medicine
DX: E78.5 Hyperlipidemia, unspecified (principal); I10 Essential (primary) hypertension; E11.9 Type 2 diabetes mellitus without complications; Z79.899 Other long term (current) drug therapy; Z12.5 Encounter for screening for malignant neoplasm of prostate; M25.511 Pain in right shoulder
CPT/HCPCS: 36415; 80051; 80061; 80076; 82565; 82947; 83036; 83880; 85025; 85652

== ENCOUNTER 2023-09-06 12:00 | Outpatient (REF) | payer MEDICARE, MEDICAID, SELFPAY ==
--- OUTSIDE RECORDS SUMMARY | 2023-09-07 01:34 | XMS_ITS | CCD ---
Author Organization [facility] Inform ion Partnership [facility] Care Team Providers Care Aerospace Mechanic Name Role Phone JR Eliud Echevarria Primary Care Provider [phone] MD Ana María Valiente Attending Provider ALLEN [...] ML PO Daily March 03, 2019 5:56pm Vwssj-Immor-Kqqog-Sibe justino Fir (Vicks Vapoinhaler) Inhaler (2 sources) Start: 03-03-2019 Fouwh-Jeqjy-Htivt -Siberian Fir (Vicks Vapoinhaler) Inhaler Active 1 [...] RESISTANT TO ALL B-LACTAM DRUGS. PERFORMED BY: [place] [address] PATHOLOGIST UX DEVELOPER DESIGNER MERVIN ADHIKARI M.D. [facility] Comment on above: Performed By: #### CUSUP #### [address] Bacteria identified Aer cx N om (Unsp spec)Ordered By: Ana María Valiente on 08-21-2021 Superficial Wound Culture Staphylococcus aureus [facility] Superficial Wound Cultureon 08-21-2021 Superficial Wound [...] RESISTANT TO ALL B-LACTAM DRUGS. PERFORMED BY: [address] [address] PATHOLOGIST UX DEVELOPER DESIGNER MERVIN ADHIKARI M.D. [facility] Comment on above: Performed By: #### CUSUP #### [facility] [address] CNOVon 02-09-2017 CNOV Office Visit (WHITNEY) --HANSLAWSON ([id number]) 1945 MDate Time Provider Scxehhfyem02/27/17 JORDAN GARCIA (PA) During your visit today, we recorded the following information about you: Temperature Pulse Respiration Blood pressure 98.6 degrees 61/minute 18/minute 138/59Palinda Garcia PA-C 02/09/2017 2:24 PM AddendumPatient Name: Lawson Lieberman FedericoRN: [id number] For Visit: Group Home Visit at [facility] for a follow [facility].Past Medical Hx: No past medical history [...] negativeFamily/Social History: Unchanged, see HANDamp;P.Medications: REVIEWED IN FPC CHARTObjective Data:BP 138/59 Pulse 61 Temp 37 [...] spent in the discharge process on this patientPaulettJUHI Espinoza-CI'll make no further changes at this [...] Status:Closed by JORDAN GARCIA on 02/09/17 Normal [facility] PROGRESSon 02-09-2017 PROGRESS HNO ID: [id number] thor: Jordan Cowart) GrantService: (none)Author Type: Physician AssistantType: Progress NotesFiled: 02/09/2017 2:24 PMNote Text:Patient Name: Lawson HardenvyMRN: [id number] For Visit: Group Home Visit at [facility] for a follow upfor discharge visit.Past [...] negativeFamily/Social History: Unchanged, see HANDP.Medications: REVIEWED IN FPC CHARTObjective Data:BP 138/59 Pulse 61 Temp 37 [...] spent in the discharge process on this patientPaulettJUHI Espinoza-CI'll make no further changes at this time. We will continue to monitor foroverall comfort, function and safety.Signature: JUHI Reinoso-CDate: February 09, 2017 Normal [facility] PROGRESSon 01-27-2017 PROGRESS HNO ID: [id number] thor: Giulia Casas ErenService: (none)Author Type: PhysicianType: Progress NotesFiled: 01/30/2017 10:27 AMNote Text: [facility] NOTENAME: LAWSON MAXWELLREGINA NO.: [id number] OF SERVICE: 01/27/2017[facility] GardensDATE OF : 1945He is sitting [...] pravastatin therapy.DICTATED BY: Giulia Hollis MDIAE/AcusisD:01/27/2017 JOB# [id number]:[facility] Signed by Giulia Hollis MD at 01/30/2017 10:19:29 Normal [facility] CNOVon 12-26-2016 CNOV Office Visit (WHITNEY) --LAWSON MAXWELL ([id number]) 1945 [facility] Time Provider Cxxxmxlcbp07/13/17 JORDAN GARCIA (PA) During your visit today, we recorded the following information about you: Temperature Pulse Respiration Blood pressure 98.4 degrees 64/minute 18/minute 112/70Paulettla Garcia PA-C 12/26/2016 2:27 PM SignedPatient Name: Lawson Lieberman JhonathanyMRN: [id number] For Visit: Group Home Visit at [facility] for a monthly visit.Past Medical Hx: [...] negativeFamily/Social History: Unchanged, see HANDamp;P.Medications: REVIEWED IN FPC CHARTObjective Data:BP 112/70 Pulse 64 Temp 36.9 [...] Status:Closed by JORDAN GARCIA on 12/26/16 Normal [facility] PROGRESSon 12-26-2016 PROGRESS HNO ID: [id number] thor: Jordan Cowart) GrantService: (none)Author Type: Physician AssistantType: Progress NotesFiled: 12/26/2016 2:27 PMNote Text:Patient Name: Lawson RingyMRN: [id number] For Visit: Group Home Visit at [facility] for a monthlyvisit.Past Medical Hx: No [...] negativeFamily/Social History: Unchanged, see HANDP.Medications: REVIEWED IN FPC CHARTObjective Data:BP 112/70 Pulse 64 Temp 36.9 [...] function and safety.Signature: JUHI Reinoso-CDate: December 26, 2016 Normal [facility] PROGRESSon 12-01-2016 PROGRESS HNO ID: [id number] thor: Giulia Ngoervice: (none)Author Type: PhysicianType: Progress NotesFiled: 12/02/2016 5:17 PMNote Text: [facility] NOTENAME: ZONIA MAXWELL NO.: [id number] OF SERVICE: 12/01/2016[place] GardensDATE OF : 1945He [...] pravastatin therapy.DICTATED BY: Giulia Hollis MDIAE/AcusisD:12/01/2016 JOB# [id number]:[facility] Signed by Giulia Hollis MD at 12/02/2016 17:13:10 Normal [facility] PROGRESSon 11-01-2016 PROGRESS HNO ID: [id number] thor: Maggie Westfall (Kay) Hubert: (none)Author Type: Nurse PractitionerType: Progress NotesFiled: 11/05/2016 12:57 PMNote Text: [facility] NOTENAME: JHONATHANCatiaLAWSONREGINA NO.: [id number] OF SERVICE: 11/01/2016[facility] 1945Seen today after review of [...] can ambulate with assistance, but he needs 1-or-5jmwukjlpeb to walk a few steps. He is [...] attend physical therapy.DICTATED BY: JANEY SKINNER/AnibalusisD:11/01/2016 VERO# [id number]:[facility]y [facility]ron[facility] Signed by MAYITO KRAFT CNP at 11/05/2016 12:43:45 Normal [facility] CNOVon 10-30-2016 CNOV Office Visit (WHITNEY) --LAWSON MAXWELL ([id number]) 1945 MDate Time Provider Department10/30/16 RUT DOMINGUEZ (KAY) WHITNEY During your visit today, we recorded the following information about you: Temperature Pulse Respiration Blood pressure 97.4 degrees 62/minute 18/minute 142/70 Weight 98.4 kgRut Dominguez CNP 10/30/2016 4:33 PM SignedPatient Name: Lawson CaballeroRN: [id number] For Visit: Group Home Visit at [facility] for a Acute for Left hip [...] see HANDamp;P.?Medications: see current medication list in [facility] chart, reviewed(Medications in [facility] may not accurate, please see update in [facility] chart)?Objective Data:BP 142/70 Pulse 62 Temp [...] I69.3545. Essential hypertension - ICD9: 401.9, ICD10: I07Nhphe () 1/2 tab bid + q6 prnCont' [...] by RUT DOMINGUEZ CNP on 10/30/16 Normal [facility] PROGRESSon 10-30-2016 PROGRESS HNO ID: [id number] thor: Rut (Kay) AngeloSerkacye: (none)Author Type: Nurse PractitionerType: Progress NotesFiled: 10/30/2016 4:33 PMNote Text:Patient Name: Lawson HardenvyMRN: [id number] For Visit: Group Home Visit at [facility] for a Acute forL eft hip [...] see HANDP.?Medications: see current medication list in [facility] chart, reviewed(Medications in [facility] may not accurate, please see update in [facility] chart)?Objective Data:BP 142/70 Pulse 62 Temp [...] I69.3545. Essential hypertension - ICD9: 401.9, ICD10: Q91Nzcdq (5/325) 1/2 tab bid + q6 prnCont' current meds regimenLab: ua+ c/sLS spine AND hip xrayPT consultObserve condition AND behaviorDiscuss plan of care w R AND staffI'll make no further changes at this time. We will continue to monitor foroverall comfort, function and safety.Signature: Rut Dominguez CNPDate: October 30, 2016 Normal [facility] PROGRESSon 10-02-2016 PROGRESS HNO ID: [id number] thor: Itri Yessenia ErenService: (none)Author Type: PhysicianType: Progress NotesFiled: 10/03/2016 5:28 PMNote Text: [facility] NOTENAME: ZONIA MAXWELL NO.: [id number] OF SERVICE: 10/02/2016Ady Aguilera is up and [...] pravastatin therapy.DICTATED BY: Giulia Hollis MDIAE/AcusisD:10/02/2016 JOB# [id number]:Ady SpencersElectronickaiser foundation hospital Signed by Giulia Hollis MD at 10/03/2016 17:10:48 Normal [facility] Encounters Encounter Date Encounter Type Care Provider Facility Start: 04-13-2023 End: 04-13-2023 ambulatory [facility] Not Available Start: 08-28-2021 End: 08-28-2021 Departed Referred JR Eliud Echevarria Work Phone: [facility] [place] Start: 08-21-2021 End: 08-21-2021 Departed Referred JR Eliud Echevarria Work Phone: [facility] [place] Procedures Date Procedure Procedure Detail Performing Clinician Start: 08-21-2021 Aerobic microbial culture JR Eliud Echevarria Work Phone: Plan of Treatment Date Care Activity Detail Author Start: 08-28-2021 Superficial Wound Culture Superficial Wound Culture [facility] Start: 08-21-2021 Superficial Wound Culture Superficial Wound Culture [facility] Bacteria identified in Unspecified specimen by Aerobe culture [facility] Work Phone: Payers Date Payer Category Payer Medicaid [id number] 2012 Medicare [id number] 1945 Unknown [id number] Medicaid [employer] [id number] Medicare Medicare [id number] Self-pay Self Pay [id number] Social History Date Type Detail Facility Start: 03-08-2019 Tobacco smoking stat us WIIS Never smoked tobacco (finding) [facility] Start: 1945 Sex Assigned At Male F [facility] Evaluation note Note Date & Type Note Facility Evaluation note No assessment information availa ble [facility] Work Phone: Summary Purpose Family History No [...] section and content) DATE CREATED AUTHOR 09/08/2017 [facility] DATE CREATED AUTHOR AUTHOR'S ORGANIZ ATION 09/10/2021 [facility] DATE CREATED AUTHOR AUTHOR'S ORGANIZ ATION 04/13/2023 [facility] dical Specialists EPIC Care Teams [...] BE BASED ON THE PRIMARY CLINICAL RECORDS. [facility] [employer] [facility]. provides no warranty or guarantee of the accuracy or completeness of information in this document.
--- OUTSIDE RECORDS SUMMARY | 2023-09-07 07:41 | XMS_ITS ---
Patient Summarization (C-CDA 2.1 CCD) Created on: September 07, 2023 LAWSON MAXWELL : 1945 Sex: Male Author Organization Sample organization Care Team Providers Care Cyber Policy And Strategy Planner Name Role Phone JR Eliud Echevarria Primary Care Provider MD Ana María Valiente Attending Provider ALLEN FUNK Attending Unavailable Encounters Encounter Date Encounter Type Care Provider Facility Start: 04-13-2023 End: 04-13-2023 ambulatory ALLEN FUNK Not Available Start: 08-28-2021 End: 08-28-2021 Departed Referred JR Eliud Echevarria Work Phone: [facility] Start: 08-21-2021 End: 08-21-2021 Departed Referred JR Eliud Echevarria Work Phone: [facility] Medications Current Medications Medication Drug Class(es) Dates [...] ML PO Daily March 03, 2019 5:56pm Fuvsb-Xanqf-Gzael-Sibe justino Fir (Vicks Vapoinhaler) Inhaler (2 sources) Start: 03-03-2019 Ihzig-Bfjpk-Oewhi -Siberian Fir (Vicks Vapoinhaler) Inhaler Active 1 [...] 2:30pm Payers Date Payer Category Payer Medicaid [id number] 2012 Medicare [id number] 1945 Unknown [id number] Medicaid Caresource [id number] Medicare Medicare [id number] Self-pay Self Pay [id number] Plan of Treatment Date Care Activity Detail Author Start: 08-28-2021 Superficial Wound Culture Superficial Wound Culture [facility] Start: 08-21-2021 Superficial Wound Culture Superficial Wound Culture [facility] Bacteria identified in Unspecified specimen by Aerobe culture [facility] Work Phone: Procedures Date [...] RESISTANT TO ALL B-LACTAM DRUGS. PERFORMED BY: [place] [address] PATHOLOGIST CRIMPING MACHINE OPERATOR MERVIN ADHIKARI M.D. Normal [facility] Comment on above: Performed By: #### CUSUP #### [facility] [address] [place] [address] Bacteria identified Aer cx N om (Unsp spec)Ordered By: Ana María Valiente on 08-21-2021 Superficial Wound Culture Staphylococcus aureus [facility] Superficial Wound Cultureon 08-21-2021 Superficial Wound Culture [...] RESISTANT TO ALL B-LACTAM DRUGS. PERFORMED BY: [place] [address] PATHOLOGIST CRIMPING MACHINE OPERATOR MERVIN ADHIKARI M.D. Normal [facility] Comment on above: Performed By: #### CUSUP #### [address] Na 02-09-2017 CNOV Office Visit (WHITNEY) --LAWSON MAXWELL ([id number]) 1945 MDate Time Provider Awqpepcmym60/27/17 JORDAN GARCIA (PA) During your visit today, we recorded the following information about you: Temperature Pulse Respiration Blood pressure 98.6 degrees 61/minute 18/minute 138/59Paulettla Garcia PA-C 02/09/2017 2:24 PM AddendumPatient Name: Lawson CaballeroRN: [id number] For Visit: Shelter Visit at [facility] for a follow up fordischarge visit.Past Medical [...] Status:Closed by JORDAN GARCIA on 02/09/17 Normal [facility] PROGRESSon 02-09-2017 PROGRESS HNO ID: [id number] thor: Jordan Cowart) GrantService: (none)Author Type: Physician AssistantType: Progress NotesFiled: 02/09/2017 2:24 PMNote Text:Patient Name: Lawson RingyMRN: [id number] For Visit: Shelter Visit at [facility] for a follow upfor discharge visit.Past Medical [...] safety.Signature: JUHI Reinoso-CDate: February 09, 2017 Normal [facility] PROGRESSon 01-27-2017 PROGRESS HNO ID: [id number] thor: Giulia Ngoervice: (none)Author Type: PhysicianType: Progress NotesFiled: 01/30/2017 10:27 AMNote Text: [facility] NOTENAME: ZONIA MAXWELL NO.: [id number] OF SERVICE: 01/27/2017TM[facility] CenterATE OF : 1945He is sitting up. He [...] pravastatin therapy.DICTATED BY: Giulia Hollis MDIAE/AcusisD:01/27/2017 JOB# [id number]:[facility] ERlectronically Signed by Giulia Hollis MD at 01/30/2017 10:19:29 Normal [facility] CNOVon 12-26-2016 CNOV Office Visit (WHITNEY) --LAWSON MAXWELL ([id number]) 1945 MDate Time Provider Hgzoifhvpg33/13/17 JORDAN GARCIA (PA) During your visit today, we recorded the following information about you: Temperature Pulse Respiration Blood pressure 98.4 degrees 64/minute 18/minute 112/70Paulettla Garcia PA-C 12/26/2016 2:27 PM SignedPatient Name: Lawson Lieberman JhonathanyMANA: [id number] For Visit: Shelter Visit at [facility] for a monthly visit.Past Medical Hx: No [...] FOR* Status:Closed by JORDAN GARCIA on 12/26/16 [facility] PROGRESSon 12-26-2016 PROGRESS HNO ID: [id number] thor: Jordan Cowart) GrantService: (none)Author Type: Physician AssistantType: Progress NotesFiled: 12/26/2016 2:27 PMNote Text:Patient Name: Lawson HardenvyMRN: [id number] For Visit: Shelter Visit at [facility] for a monthlyvisit.Past Medical Hx: No past [...] safety.Signature: MIN ReinosoCDate: December 26, 2016 Normal [facility] PROGRESSon 12-01-2016 PROGRESS HNO ID: [id number] thor: Giulia Caballeroice: (none)Author Type: PhysicianType: Progress NotesFiled: 12/02/2016 5:17 PMNote Text: [facility] NOTENAME: ZONIA MAXWELL NO.: [id number] OF SERVICE: 12/01/2016[facility] GardensDATE OF : 1945He is resting in [...] on pravastatin therapy.DICTATED BY: Giulia Hollis MDIAE/AcusisD:12/01/2016 [facility]# [id number]:Ady [facility]Parktronicgreater [facility] Signed by Giulia Hollis MD at 12/02/2016 17:13:10 Normal [facility] PROGRESSon 11-01-2016 PROGRESS HNO ID: [id number] thor: Maggie Westfall ([employer]) Hubert: (none)Author Type: Nurse PractitionerType: Progress NotesFiled: 11/05/2016 12:57 PMNote Text: [facility] NOTENAME: ROXLAWSON FERGUSONREGINA NO.: [id number] OF SERVICE: 11/01/2016Ady Huerta OF : 1945Seen [...] can ambulate with assistance, but he needs 0-jy-2hcewlusvpg to walk a few steps. He is [...] to attend physical therapy.DICTATED BY: JANEY SKINNER/RickeysD:11/01/2016 DERIAN# [id number]:[place] Gardenlectronically Signed by MAYITO KRAFT CNP at 11/05/2016 12:43:45 Normal [facility] CNOVon 10-30-2016 CNOV Office Visit (WHITNEY) --LAWSON MAXWELL ([id number]) 1945 MDate Time Provider Department10/30/16 RUT DOMINGUEZ (KAY) WHITNEY During your visit today, we recorded the following information about you: Temperature Pulse Respiration Blood pressure 97.4 degrees 62/minute 18/minute 142/70 Weight 98.4 kgRut Dominguez CNP 10/30/2016 4:33 PM SignedPatient Name: Lawson Mio AureaN: [id number] For Visit: Shelter Visit at [facility] for a Acute for Left hip [...] in [facility] chart, reviewed(Medications in [facility] may not accurate, please see update in [...] I69.3545. Essential hypertension - ICD9: 401.9, ICD10: A45Eamwk () / tab bid + q6 prnCont' [...] by RUT DOMINGUEZ CNP on 10/30/16 Normal [facility] PROGRESSon 10-30-2016 PROGRESS HNO ID: [id number] thor: Rut (Kay) Daniele: (none)Author Type: Nurse PractitionerType: Progress NotesFiled: 10/30/2016 4:33 PMNote Text:Patient Name: Lawson CaballeroRN: [id number] For Visit: Shelter Visit at [facility] for a Acute forL eft hip [...] in [facility] chart, reviewed(Medications in [facility] may not accurate, please see update in [...] I69.3545. Essential hypertension - ICD9: 401.9, ICD10: K16Osusp (5325) 1/2 tab bid + q6 prnCont' current meds regimenLab: ua+ c/sLS spine AND hip xrayPT consultObserve condition AND behaviorDiscuss plan of care w R AND staffI'll make no further changes at this time. We will continue to monitor foroverall comfort, function and safety.Signature: Rut Dominguez CNPDate: October 30, 2016 Normal [facility] PROGRESSon 10-02-2016 PROGRESS HNO ID: [id number] thor: Giulia Casas ErenService: (none)Author Type: PhysicianType: Progress NotesFiled: 10/03/2016 5:28 PMNote Text: [facility] NOTENAME: ZONIA MAXWELL NO.: [id number] OF SERVICE: 10/02/2016Ady Aguilera is up and [...] pravastatin therapy.DICTATED BY: Giulia Hollis MDIAE/AcusisD:10/02/2016 JOB# [id number]:[place] Normal [facility] Social History Date Type Detail Facility Start: 03-08-2019 Tobacco smoking stat us NHIS Never smoked tobacco (finding) [facility] Start: 1945 Sex Assigned At Male F [facility] Evaluation note Note Date & Type Note Facility Evaluation note No assessment information availa ble [facility] Work Phone: Summary Purpose [...] section and content) DATE CREATED AUTHOR 09/08/2017 [facility] DATE CREATED AUTHOR AUTHOR'S ORGANIZ ATION 09/10/2021 [facility] DATE CREATED AUTHOR AUTHOR'S ORGANIZ ATION 04/13/2023 [facility] d[facility] Specialists EPIC Care Teams (unrecognized [...] BE BASED ON THE PRIMARY CLINICAL RECORDS. [facility]. provides no warranty or guarantee of the accuracy or completeness of information in this document.
[2023-09-07 07:50] LABS: Bilirubin Urine NEGATIVE (NEGATIVE); Blood Urine NEGATIVE (NEGATIVE); Clarity Urine CLEAR (CLEAR); Color Urine YELLOW (YELLOW); Glucose Urine UA >=1000 mg/dL (NEGATIVE); Ketones Urine NEGATIVE (NEGATIVE); Leukocyte Esterase Urine NEGATIVE (NEGATIVE); Nitrite Urine NEGATIVE (NEGATIVE); Protein Urine NEGATIVE (NEG/TRACE); Specific Gravity Urine 1.015 (1.005-1.025); Urobilinogen Urine 0.2 EU/dL (0.2-1.0)
== END 2023-09-06 12:01 | disposition home or self-care (01) ==
LOC: LAB 12:00
PROVIDERS: PCP Internal Medicine; Visit Provider Internal Medicine
DX: R35.89 Other polyuria (principal)
CPT/HCPCS: 81003; 87086

== ENCOUNTER 2023-11-10 11:51 | Outpatient (RCR) | payer MEDICARE, MEDICAID, SELFPAY ==
--- OUTSIDE RECORDS SUMMARY | 2023-11-11 01:58 | XMS_ITS | CCD ---
Author Organization [facility] Inform ion Partnership [facility] Care Team Providers Care Principal Java Developer Name Role Phone JR Eliud Echevarria Primary Care Provider [phone] MD Ana María Valiente Attending Provider ALLEN [...] ML PO Daily March 03, 2019 5:56pm Ruhby-Oqays-Jdsfg-Sibe justino Fir (Vicks Vapoinhaler) Inhaler (2 sources) Start: 03-03-2019 Iapyu-Dogyi-Zimlt -Siberian Fir (Vicks Vapoinhaler) Inhaler Active 1 [...] RESISTANT TO ALL B-LACTAM DRUGS. PERFORMED BY: [place] [address] PATHOLOGIST APPEALS REVIEWER VETERAN MERVIN ADHIKARI M.D. [facility] Comment on above: Performed By: #### CUSUP #### [address] Bacteria identified Aer cx N om (Unsp spec)Ordered By: Ana María Valiente on 08-21-2021 Superficial Wound Culture Staphylococcus aureus [facility] Superficial Wound Cultureon 08-21-2021 Superficial Wound [...] RESISTANT TO ALL B-LACTAM DRUGS. PERFORMED BY: [address] [address] PATHOLOGIST APPEALS REVIEWER VETERAN MERVIN ADHIKARI M.D. [facility] Comment on above: Performed By: #### CUSUP #### [facility] [address] CNOVon 02-09-2017 CNOV Office Visit (WHITNEY) --HANSLAWSON ([id number]) 1945 MDate Time Provider Vekurayoud02/27/17 JORDAN GARCIA (PA) During your visit today, we recorded the following information about you: Temperature Pulse Respiration Blood pressure 98.6 degrees 61/minute 18/minute 138/59Palinda Garcia PA-C 02/09/2017 2:24 PM AddendumPatient Name: Lawson Lieberman FedericoRN: [id number] For Visit: Snf Visit at [facility].Past Medical Hx: No past medical history [...] negativeFamily/Social History: Unchanged, see HANDamp;P.Medications: REVIEWED IN SNF CHARTObjective Data:BP 138/59 Pulse 61 Temp 37 [...] Status:Closed by JORDAN GARCIA on 02/09/[address] [facility] PROGRESSon 02-09-2017 PROGRESS HNO ID: [id number] thor: Jordan Cowart) GrantService: (none)Author Type: Physician AssistantType: Progress NotesFiled: 02/09/2017 2:24 PMNote Text:Patient Name: Lawson HardenvyMRN: [id number] For Visit: Snf Visit at [facility] for a follow upfor discharge visit.Past [...] negativeFamily/Social History: Unchanged, see HANDP.Medications: REVIEWED IN SNF CHARTObjective Data:BP 138/59 Pulse 61 Temp 37 [...] safety.Signature: JUHI Reinoso-CDate: February 09, [address] [facility] PROGRESSon 01-27-2017 PROGRESS HNO ID: [id number] thor: Giulia Casas ErenService: (none)Author Type: PhysicianType: Progress NotesFiled: 01/30/2017 10:27 AMNote Text: [facility] NOTENAME: LAWSON MAXWELLREGINA NO.: [id number] OF SERVICE: 01/27/2017[facility] GardensDATE OF : 1945He is sitting [...] pravastatin therapy.DICTATED BY: Giulia Hollis MDIAE/AcusisD:01/27/2017 JOB# [id number]:[facility] Hospitallectronically Signed by Giulia Hollis MD at 01/30/2017 10:19:[address] [facility] CNOVon 12-26-2016 CNOV Office Visit (WHITNEY) --LAWSON MAXWELL ([id number]) [address] [facility] Time Provider Wudyermvix51/13/17 JORDAN GARCIA (PA) During your visit today, we recorded the following information about you: Temperature Pulse Respiration Blood pressure 98.4 degrees 64/minute 18/minute 112/70Paulettal Garcia PA-C 12/26/2016 2:27 PM SignedPatient Name: Lawson Lieberman JhonathanyMRN: [id number] For Visit: Snf Visit at [facility] for a monthly visit.Past Medical Hx: [...] negativeFamily/Social History: Unchanged, see HANDamp;P.Medications: REVIEWED IN SNF CHARTObjective Data:BP 112/70 Pulse 64 Temp 36.9 [...] Status:Closed by JORDAN GARCIA on 12/26/[address] [facility] PROGRESSon 12-26-2016 PROGRESS HNO ID: [id number] thor: Jordan Cowart) GrantService: (none)Author Type: Physician AssistantType: Progress NotesFiled: 12/26/2016 2:27 PMNote Text:Patient Name: Lawson RingyMRN: [id number] For Visit: Snf Visit at [facility] for a monthlyvisit.Past Medical Hx: No [...] negativeFamily/Social History: Unchanged, see HANDP.Medications: REVIEWED IN SNF CHARTObjective Data:BP 112/70 Pulse 64 Temp 36.9 [...] safety.Signature: JUHI Reinoso-CDate: December 26, [address] [facility] PROGRESSon 12-01-2016 PROGRESS HNO ID: [id number] thor: Giulia Ngoervice: (none)Author Type: PhysicianType: Progress NotesFiled: 12/02/2016 5:17 PMNote Text: [facility] NOTENAME: ZONIA MAXWELL NO.: [id number] OF SERVICE: 12/01/2016[place] GardensDATE OF : 1945He [...] pravastatin therapy.DICTATED BY: Giulia Hollis MDIAE/AcusisD:12/01/2016 JOB# [id number]:Ady [facility] Hospitallectronically Signed by Giulia Hollis MD at 12/02/2016 17:13:[address] [facility] PROGRESSon 11-01-2016 PROGRESS HNO ID: [id number] thor: Maggie Westfall (Kay) Hubert: (none)Author Type: Nurse PractitionerType: Progress NotesFiled: 11/05/2016 12:57 PMNote Text: [facility] NOTENAME: JHONATHANCatiaLAWSONREGINA NO.: [id number] OF SERVICE: 11/01/2016TGl[facility] CenterATE [facility] : 1945Seen today after [...] can ambulate with assistance, but he needs 3-ft-3rixnqvscld to walk a few steps. He is [...] attend physical therapy.DICTATED BY: JANEY SKINNER/AnibalusisD:11/01/2016 VERO# [id number]:Ady [facility] Hospitallectroniccolusa regional medical center Signed by MAYITO KRAFT CNP at 11/05/2016 12:43:[address] [facility] CNOVon 10-30-2016 CNOV Office Visit (WHITNEY) --LAWSON MAXWELL ([id number]) 1945 MDate Time Provider Department10/30/16 RUT DOMINGUEZ (KAY) WHITNEY During your visit today, we recorded the following information about you: Temperature Pulse Respiration Blood pressure 97.4 degrees 62/minute 18/minute 142/70 Weight 98.4 kgRut Dominguez CNP 10/30/2016 4:33 PM SignedPatient Name: Lawson CaballeroRN: [id number] For Visit: Snf Visit at [facility] for a Acute for Left hip and [...] see HANDamp;P.?Medications: see current medication list in [facility] chart, reviewed(Medications in [facility] may not accurate, please see update in [facility] chart)?Objective Data:BP 142/70 Pulse 62 Temp [...] I69.3545. Essential hypertension - ICD9: 401.9, ICD10: W00Gpixr () 1/2 tab bid + q6 prnCont' [...] by RUT DOMINGUEZ CNP on 10/30/[address] [facility] PROGRESSon 10-30-2016 PROGRESS HNO ID: [id number] thor: Rut (Kay) AngeloSerkacye: (none)Author Type: Nurse PractitionerType: Progress NotesFiled: 10/30/2016 4:33 PMNote Text:Patient Name: Lawson HardenvyMRN: [id number] For Visit: Snf Visit at [facility] for a Acute forL eft hip and [...] see HANDP.?Medications: see current medication list in [facility] chart, reviewed(Medications in EPIC may not accurate, please see update in [facility] chart)?Objective Data:BP 142/70 Pulse 62 Temp [...] I69.3545. Essential hypertension - ICD9: 401.9, ICD10: D86Dcusw (5/325) 1/2 tab bid + q6 prnCont' current meds regimenLab: ua+ c/sLS spine AND hip xrayPT consultObserve condition AND behaviorDiscuss plan of care w R AND staffI'll make no further changes at this time. We will continue to monitor foroverall comfort, function and safety.Signature: Rut Dominguez CNPDate: October 30, [address] [facility] PROGRESSon 10-02-2016 PROGRESS HNO ID: [id number] thor: Itri Yessenia ErenService: (none)Author Type: PhysicianType: Progress NotesFiled: 10/03/2016 5:28 PMNote Text: [facility] NOTENAME: ZONIA MAXWELL NO.: [id number] OF SERVICE: 10/02/2016Ady Aguilera is up and [...] pravastatin therapy.DICTATED BY: Giulia Hollis MDIAE/AcusisD:10/02/2016 JOB# [id number]:Ady [place] GardenssElectroniccolusa regional medical center Signed by Giulia Hollis MD at 10/03/2016 17:10:[address] [facility] Encounters Encounter Date Encounter Type Care Provider Facility Start: 04-13-2023 End: 04-13-2023 ambulatory ALLEN Westfall [facility] Not Available Start: 08-28-2021 End: 08-28-2021 Departed Referred JR Eliud Echevarria Work Phone: [facility] [place] Start: 08-21-2021 End: 08-21-2021 Departed Referred JR Eliud Echevarria Work Phone: [facility] [place] Procedures Date Procedure Procedure Detail Performing Clinician Start: 08-21-2021 Aerobic microbial culture JR Eliud Echevarria Work Phone: Plan of Treatment Date Care Activity Detail Author Start: 08-28-2021 Superficial Wound Culture Superficial Wound Culture [facility] Start: 08-21-2021 Superficial Wound Culture Superficial Wound Culture [facility] Bacteria identified in Unspecified specimen by Aerobe culture [facility] Work Phone: Payers Date Payer Category Payer Medicaid [id number] 2012 Medicare [id number] 1945 Unknown [id number] Medicaid [employer] [id number] Medicare Medicare [id number] Self-pay Self Pay [id number] Social History Date Type Detail Facility Start: 03-08-2019 Tobacco smoking stat us FLIS Never smoked tobacco (finding) [facility] Start: 1945 Sex Assigned At Male F [facility] Evaluation note Note Date & Type Note Facility Evaluation note No assessment information availa ble [facility] Work Phone: Summary Purpose Family History No [...] section and content) DATE CREATED AUTHOR 09/08/[address] [facility] DATE CREATED AUTHOR AUTHOR'S ORGANIZ ATION 09/10/2021 [facility] DATE CREATED AUTHOR AUTHOR'S ORGANIZ ATION 04/13/2023 [facility] EPIC Care Teams (unrecognized sec [...] BE BASED ON THE PRIMARY CLINICAL RECORDS. [facility] [employer] [facility]. provides no warranty or guarantee of the accuracy or completeness of information in this document.
[2023-11-11 09:16] LABS: Anion Gap 12.1; Calcium 9.2 mg/dL (8.5-10.1); Carbon Dioxide 31.5 mmol/L (21.0-32.0); Chloride 104 mmol/L (98-107); Estimated GFR (African America >60 (>=60); Estimated GFR (Non-African Ame >60 (>=60); Glucose 115 mg/dL (74-106); Potassium 4.6 mmol/L (3.5-5.1); Sodium 143 mmol/L (136-145)
[2023-11-11 09:50] LABS: Prostate Specific Antigen Dx 0.36 ng/mL (<=4.00)
[2023-11-11 10:46] LABS: Estimated Average Glucose 128 mg/dL; Glycohemoglobin A1C 6.1 % (4.5-6.2)
[2023-11-11 12:01] LABS: Bilirubin Urine NEGATIVE (NEGATIVE); Blood Urine NEGATIVE (NEGATIVE); Clarity Urine CLEAR (CLEAR); Color Urine YELLOW (YELLOW); Glucose Urine UA >=1000 mg/dL (NEGATIVE); Ketones Urine NEGATIVE (NEGATIVE); Leukocyte Esterase Urine NEGATIVE (NEGATIVE); Nitrite Urine NEGATIVE (NEGATIVE); Protein Urine NEGATIVE (NEG/TRACE); Specific Gravity Urine 1.015 (1.005-1.025); Urobilinogen Urine 0.2 EU/dL (0.2-1.0)
[2023-11-11 12:03] LABS: Urine Microscopic Indicated NO
== END 2023-11-14 23:59 | disposition home or self-care (01) ==
LOC: LAB 11:51
PROVIDERS: PCP Internal Medicine; Visit Provider Internal Medicine
DX: R30.0 Dysuria (principal); E11.9 Type 2 diabetes mellitus without complications
CPT/HCPCS: 36415; 80048; 81003; 83036; 84153

== ENCOUNTER 2024-04-27 16:14 | Inpatient (IN) | payer MEDICARE, MEDICAID, SELFPAY ==
[2024-04-27] VITALS (17 sets, daily range): BP systolic 147–200; BP diastolic 79–128; PULSE 63–87; TEMP 36.6–36.8; O2SAT 87–99; BMI 28.8; BMI 25.7
--- NOTE | 2024-04-27 16:15 | XR_ITS ---
The [address] [address] Patient Name: LAWSON MAXWELL MRN: [id number] date: 1945 Sex: M Assigned Patient Location: ED.MAIN Current Patient Location: ER Accession/Order Number: [id number] Exam Date: 04/27/2024 16:30 Report Date: 04/27/2024 17:00 At the request of: SID SMILEY Procedure: XR chest 1V CHEST X-RAY, 04/27/2024 HISTORY: Hypertension. COMPARISON: None. FINDINGS: A single view of the chest was obtained. Heart size and mediastinal contours are normal. There is no pleural effusion. No pneumothorax. No pulmonary edema. XR/XR chest 1V IMPRESSION: Lungs appear clear. No acute findings in the chest. Electronically authenticated by: ALFRED SHERMAN Date: 04/27/2024 17:00
--- NOTE | 2024-04-27 16:15 | ECG_ITS ---
The [facility] Test Date: 2024-04-27 Pat Name: LAWSON MAXWELL Department: Room: - Gender: Male Micro Paleontologist: : 1945 Requested By: BOB DENT Order Number: [id number] Reading MD: ABDULLAHI STAFFORD Measurements Intervals [place] Rate: 73 P: -96071 VT: -92622 QRS: 73 QRSD: 92 T: 76 QT: 404 QTc: 430 Interpretive Statements 1210 Atrial fibrillation 3433 Septal myocardial infarction, probably old 8102 Low QRS voltage in chest leads 9150 abnormal ECG Compared to ECG 08/20/2023 07:46:22 Myocardial infarct finding now present Low QRS voltage now present Electronically Signed On 04-29-2024 5:27:11 EST by ABDULLAHI STAFFORD
--- NOTE | 2024-04-27 16:16 | CT_ITS ---
The [address] [address] Patient Name: LAWSON MAXWELL MRN: [id number] date: 1945 Sex: M Assigned Patient Location: ER Current Patient Location: Accession/Order Number: [id number] Exam Date: 04/27/2024 16:33 Report Date: 04/27/2024 17:00 At the request of: SID SMILEY Procedure: CT head/brain wo con CT HEAD WITHOUT CONTRAST, 04/27/2024. HISTORY: Hypertension. Generalized weakness. COMPARISON: CT head, 08/20/2023. TECHNIQUE: Noncontrast axial CT images obtained through the head. Reconstructions obtained in the sagittal and coronal planes. Dose reduction techniques were achieved by using automated exposure control and/or adjustment of mA and/or kV according to patient size and/or use of iterative reconstruction technique. FINDINGS: The paranasal sinuses are clear. Mastoid air cells clear. Skull base intact. No skull lesion. No skull fracture. Nasopharynx normal. Prior cataract surgery. Moderate brain atrophy. 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 No hydrocephalus. No subdural fluid collection. No mass effect. No shift of midline. Powell matter and white matter differentiation appears to be intact. No acute hemorrhage. No masses. CT/CT head/brain wo con IMPRESSION: 1. Stable CT of the head. No new acute findings. No acute hemorrhage. 2. 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 3. Stable brain atrophy. Electronically authenticated by: ALFRED SHERMAN Date: 04/27/2024 17:00
--- NOTE | 2024-04-27 16:16 | ED.GENADUL1 ---
HPI HPI - General Adult General Chief complaint: Weakness Stated complaint: altered mental status Time Seen by Provider: 04/27/24 16:15 Source: patient History of Present Illness HPI narrative: This patient is a pleasant 79-year-old male brought to the emergency department by ambulance from the assisted living facility where he is a resident for evaluation of elevated blood pressure and some confusion. History was limited from intermediate report. Patient has a previous history of stroke with residual left-sided weakness. Patient states today he has not felt like himself, he reports a mild headache with no visual changes, chest pain or shortness of breath. He has no new peripheral paresthesias or falls. Blood pressure was noted to be elevated, he does have a history of elevated blood pressure. Related Data Home Medications ?Medication ?Instructions ?Recorded ?Confirmed acetaminophen 500 mg tablet 1,000 mg PO BID 08/20/23 04/27/24 apixaban 5 mg tablet (Eliquis) 5 mg PO Q12H 08/20/23 04/27/24 aspirin 81 mg chewable tablet 81 mg PO DAILY 08/20/23 04/27/24 cholecalciferol (vitamin D3) 50 50 mcg PO DAILY 08/20/23 04/27/24 mcg (2,000 unit) tablet dulaglutide 3 mg/0.5 mL 3 mg subcut .08/20/23 04/27/24 subcutaneous pen injector (Trulicity) duloxetine 60 mg capsule,delayed 60 mg PO DAILY 08/20/23 04/27/24 release dutasteride 0.5 mg capsule 0.5 mg PO DAILY 08/20/23 04/27/24 empagliflozin 10 mg tablet 10 mg PO DAILY 08/20/23 08/20/23 (Jardiance) ezetimibe 10 mg tablet 10 mg PO DAILY 08/20/23 04/27/24 famotidine 40 mg tablet 40 mg PO BEDTIME 08/20/23 04/27/24 metoprolol tartrate 25 mg tablet 25 mg PO .QHS 08/20/23 04/27/24 mirabegron 50 mg tablet,extended 50 mg PO DAILY 08/20/23 04/27/24 release 24 hr (Myrbetriq) ondansetron HCl 4 mg tablet 4 mg PO Q6H PRN nausea and vomiting 08/20/23 04/27/24 potassium chloride 20 mEq 20 meq PO DAILY 08/20/23 04/27/24 tablet,extended release(part/cryst) quetiapine 50 mg tablet 50 mg PO BEDTIME 08/20/23 04/27/24 rosuvastatin 20 mg tablet 20 mg PO BEDTIME 08/20/23 04/27/24 tamsulosin 0.4 mg capsule 0.4 mg PO BID 08/20/23 04/27/24 trazodone 50 mg tablet 25 mg PO BEDTIME 08/20/23 04/27/24 acarbose 100 mg tablet 100 mg PO TID 04/27/24 04/27/24 acetaminophen 325 mg tablet 650 mg PO Q4H PRN fever or pain 04/27/24 04/27/24 albuterol sulfate 90 mcg/actuation 1 puff inhalation Q4H PRN 04/27/24 04/27/24 aerosol inhaler shortness of breath or wheezing baclofen 5 mg tablet 5 mg PO BID PRN muscle spasm 04/27/24 04/27/24 candesartan 32 mg tablet 32 mg PO QAM 04/27/24 04/27/24 diclofenac sodium 1 % topical gel 2 g topical TID PRN pain 04/27/24 04/27/24 empagliflozin 10 mg tablet 10 mg PO DAILY 04/27/24 04/27/24 (Jardiance) metoprolol tartrate 50 mg tablet 50 mg PO QAM 04/27/24 04/27/24 (Lopressor) oxybutynin chloride 10 mg 10 mg PO DAILY 04/27/24 04/27/24 tablet,extended release 24 hr Previous Rx's ?Medication ?Instructions ?Recorded losartan 25 mg tablet 100 mg (4 x 25 mg) PO DAILY #0 tabs 08/21/23 Allergies Allergy/AdvReac Type Severity Reaction Status Date / Time No Known Drug Allergies Allergy Verified 04/27/24 16:24 Opioid HPI Opioid Management Most Recent Opioid Data: Last Pain Scale 5 08/20/23 21:00 08/20/23 Last ORT Total Score 0 08/20/23 10:55 08/20/23 Last ORT Risk Category Low Risk 08/20/23 10:55 08/20/23 Review of Systems ROS Constitutional Denies: fever or chills Ears, nose, mouth, and throat Denies: throat pain or nasal congestion Cardiovascular Denies: chest pain Respiratory Denies: shortness of breath Gastrointestinal Denies: nausea or vomiting Musculoskeletal Denies: back pain or neck pain Integumentary/Breast Denies: rash Neurological Reports: headache, weakness in extremities and confusion; Denies: numbness in extremities Hematologic/Lymphatic Denies: easy bruising or easy bleeding [facility] Medical History (Updated 04/27/24 @ 17:29 by JUHI Farias) Hemiparesis affecting left side as late effect of cerebrovascular accident ?I69.354 - Hemiplegia and hemiparesis following cerebral infarction affecting left non-dominant side (ICD-10) H/O: CVA (cerebrovascular accident) ?Z86.73 - Personal history of transient ischemic attack (TIA), and cerebral infarction without residual deficits (ICD-10) Urine retention ?R33.9 - Retention of urine, unspecified (ICD-10) Anxiety ?F41.9 - Anxiety disorder, unspecified (ICD-10) Hyperlipidemia ?E78.5 - Hyperlipidemia, unspecified (ICD-10) Hypertension ?I10 - Essential (primary) hypertension (ICD-10) Diabetes ?E11.9 - Type 2 diabetes mellitus without complications (ICD-10) Coronary artery disease ?I25.10 - Atherosclerotic heart disease of [place] coronary artery without angina pectoris (ICD-10) BPH (benign prostatic hyperplasia) ?N40.0 - Benign prostatic hyperplasia without lower urinary tract symptoms (ICD-10) A-fib ?I48.91 - Unspecified atrial fibrillation (ICD-10) Right-sided cerebrovascular accident (CVA) ?I63.9 - Cerebral infarction, unspecified (ICD-10) Social History Within the past year, how often did you have a drink containing alcohol: never Score interpretation: A score less than 4 is consistent with normal alcohol consumption. Smoking status: Never smoker Non-prescribed substance use: denies use Previous occupational history: retired Highest level of school completed/degree received: high school graduate Little interest or pleasure in doing things: not at all Feeling down, depressed, or hopeless: not at all Exam Narrative Exam Narrative: Gen.: Awake, alert, in no distress Head: Normocephalic, atraumatic ENT: Moist mucous membranes Respiratory: No respiratory distress, lungs clear bilaterally Cardio: Regular rate and rhythm Gastrointestinal: Abdomen is soft, nondistended and nontender to palpation Extremities: Contracture of the left hand with generalized weakness of the left arm and leg from previous stroke Psych: Normal mood and affect Neuro: No new focal neuro deficit, alert and oriented to person, place, time Skin: Warm, dry, intact Constitutional Vital Signs, click to edit/add: Last Vital Signs Temp 97.8 F 04/27/24 16:17 Pulse 85 04/27/24 17:00 Resp 21 H 04/27/24 17:00 BP 191/104 H 04/27/24 17:00 Pulse Ox 98 04/27/24 17:00 O2 Del Method Room Air 04/27/24 16:17 Course Vital Signs Vital signs: Vital Signs Temperature 97.8 F 04/27/24 16:17 Pulse Rate 73 04/27/24 16:17 Respiratory Rate 18 04/27/24 16:17 Blood Pressure 200/110 H 04/27/24 16:17 Pulse Oximetry 94 L 04/27/24 16:17 Oxygen Delivery Method Room Air 04/27/24 16:17 Temperature 97.8 F 04/27/24 16:17 Pulse Rate 85 04/27/24 17:00 Respiratory Rate 21 H 04/27/24 17:00 Blood Pressure 191/104 H 04/27/24 17:00 Pulse Oximetry 98 04/27/24 17:00 Oxygen Delivery Method Room Air 04/27/24 16:17 Medical Decision Making MDM Narrative Medical decision making narrative: Patient was given labetalol and Vasotec for blood pressure, CT of the brain and chest x-ray are unremarkable. He continues to be hypertensive and lives in an assisted living facility where he cannot be closely monitored for the confusion that he may have had earlier. He will be admitted for observation with telemetry for further evaluation and treatment. SUPERVISED APC VISIT, PHYSICIAN ATTESTATION: Based on the medical record the care appears appropriate. ? Medical Records Medical records reviewed: Yes I reviewed the patient's medical records Lab Data Lab results reviewed: Yes I reviewed the patient's lab results Labs: Lab Results 04/27/24 Range/Units 16:30 WBC 5.3 (4.0-11.0) 10^3/uL RBC 4.89 (4.70-6.10) 10^6/uL Hgb 15.1 (14.0-18.0) g/dL Hct 45.8 (42.0-54.0) % MCV 93.7 (80.0-94.0) fL MCH 30.9 (25.9-34.0) pg MCHC 33.0 (29.9-35.2) g/dL RDW 12.8 (11.0-15.0) % Plt Count 205 (150-450) 10^3/uL MPV 8.7 L (9.5-13.5) fL Neut % (Auto) 56.2 (43.0-75.0) % Lymph % (Auto) 25.4 (20.5-60.0) % [place] % (Auto) 12.6 H (1.7-12.0) % Eos % (Auto) 4.5 (0.9-7.0) % Baso % (Auto) 0.9 (0.2-2.0) % Neut # (Auto) 3.0 (1.4-6.5) 10^3/uL Lymph # (Auto) 1.4 (1.2-3.8) 10^3/uL [place] # (Auto) 0.7 (0.3-0.8) 10^3/uL Eos # (Auto) 0.2 (0.0-0.7) 10^3/uL Baso # (Auto) 0.1 (0.0-0.1) 10^3/uL Abs Immat Gran (auto) 0.02 (0.00-0.03) 10^3/uL Imm/Tot Granulo (auto) 0.4 (0.0-0.5) % PT 11.6 (9.0-11.6) sec INR 1.11 Sodium 143 (136-145) mmol/L Potassium 3.9 (3.5-5.1) mmol/L Chloride 105 (98-107) mmol/L Carbon Dioxide 30.1 (21.0-32.0) mmol/L Anion Gap 11.8 BUN 10.0 (7.0-18.0) mg/dL Creatinine 1.01 (0.70-1.30) mg/dL Est GFR ( Amer) >60 (>=60 mL/min/1.73m^2) Est GFR (Non-Af Amer) >60 (>=60 mL/min/1.73m^2) BUN/Creatinine Ratio 9.9 Glucose 110 H (74-106) mg/dL Lactate 2.1 H (0.4-2.0) mmol/L Calcium 9.4 (8.5-10.1) mg/dL Total Bilirubin 1.3 H (0.2-1.0) mg/dL AST 12 L (15-37) U/L ALT 15 L (16-63) U/L Alkaline Phosphatase 64 (46-116) U/L Troponin I High Sens 10.3 (4.0-76.1) pg/mL NT-Pro-B Natriuret Pep 1294.0 (<=1800.0) pg/mL Total Protein 7.3 (6.4-8.2) g/dL Albumin 3.8 (3.4-5.0) g/dL Globulin 3.5 g/dL Albumin/Globulin Ratio 1.1 TSH 3.229 (0.358-3.740) uIU/mL Imaging Data CT scan - head: Attestation: I have reviewed the pertinent imaging results. Radiologist's impression: ITS Impressions Chest X-Ray 04/27/24 16:15 IMPRESSION: Lungs appear clear. No acute findings in the chest. Electronically authenticated by: ALFRED SHERMAN Date: 04/27/2024 17:[address] 04/27/24 16:16 IMPRESSION: 1. Stable CT of the head. No new acute findings. No acute hemorrhage. 2. 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 3. Stable brain atrophy. Electronically authenticated by: ALFRED SHERMAN Date: 04/27/2024 17:00 ECG Data Attestation: I personally reviewed and interpreted this ECG as follows: (Atrial fibrillation at a rate of 73, no acute ST elevation or ectopy. EKG reviewed by attending physician) Discharge Plan Discharge Chief Complaint: Weakness Clinical Impression: Hypertension, Altered mental status Patient Disposition: Admitted as Observation Time of Disposition Decision: 17:29 Prescriptions / Home Meds: No Action famotidine 40 mg tablet 40 mg PO BEDTIME potassium chloride 20 mEq tablet,ER particles/crystals 20 meq PO DAILY aspirin 81 mg tablet,chewable 81 mg PO DAILY ezetimibe 10 mg tablet 10 mg PO DAILY dutasteride 0.5 mg capsule 0.5 mg PO DAILY metoprolol tartrate 25 mg tablet 25 mg PO .QHS duloxetine 60 mg capsule,delayed release(DR/EC) 60 mg PO DAILY quetiapine 50 mg tablet 50 mg PO BEDTIME trazodone 50 mg tablet 25 mg PO BEDTIME ondansetron HCl 4 mg tablet 4 mg PO Q6H PRN (Reason: nausea and vomiting) tamsulosin 0.4 mg capsule 0.4 mg PO BID rosuvastatin 20 mg tablet 20 mg PO BEDTIME cholecalciferol (vitamin D3) 50 mcg (2,000 unit) tablet 50 mcg PO DAILY mirabegron [Myrbetriq] 50 mg tablet extended release 24 hr 50 mg PO DAILY Eliquis 5 mg tablet 5 mg PO Q12H Jardiance 10 mg tablet 10 mg PO DAILY Trulicity 3 mg/0.5 mL pen injector 3 mg SUBCUT . acetaminophen 500 mg tablet 1,000 mg PO BID losartan 25 mg tablet 100 mg PO DAILY Qty: 0 0RF metoprolol tartrate [Lopressor] 50 mg tablet 50 mg PO QAM acarbose 100 mg tablet 100 mg PO TID acetaminophen 325 mg tablet 650 mg PO Q4H PRN (Reason: fever or pain) albuterol sulfate 90 mcg/actuation HFA aerosol inhaler 1 puff INHALATION Q4H PRN (Reason: shortness of breath or wheezing) candesartan 32 mg tablet 32 mg PO QAM diclofenac sodium 1 % gel 2 g TOPICAL TID PRN (Reason: pain) baclofen 5 mg tablet 5 mg PO BID PRN (Reason: muscle spasm) Jardiance 10 mg tablet 10 mg PO DAILY oxybutynin chloride 10 mg tablet extended release 24hr 10 mg PO DAILY Print Language: [place] Referrals: BOB DENT DO [Primary Care Provider] - 1 week
--- OUTSIDE RECORDS SUMMARY | 2024-04-27 16:30 | XMS_ITS | CCD ---
Author Organization [facility] Care Team Providers Care Dry Box Operator Name Role Phone JR Eliud Echevarria Primary Care Provider [phone] MD Ana María Valiente Attending Provider [phone] Eliud Echevarria MD Primary Care Provider ALLEN DE LEON Attending Unavailable ALLEN DE LEON Attending Unavailable Medications Current Medications Medication Drug Class(es) Dates Sig (Normalized) Sig (Original) acarbose 100 mg oral tablet (1 source) alpha-Glucosidas e Inhibitor Start: 04-01-2024 acarbose (Precose) 100 MG tablet 04/01/2024 Active acetaminophen 500 mg oral tablet (4 sources) Start: 04-09-2023 Acetaminophen Extra Strength 500 MG tablet 04/09/2023 Active Start: 03-03-2019 take 2 tablets by mo uth every four hours Acetaminophen Active 2 TAB PO Q4H March 03, 2019 5:56pm acetaminophen 325 mg / HYDROcodone bitartrate 5 mg oral tablet (2 sources) Opioid Agonist Start: 03-03-2019 take 0.5 tablet by mouth every six hours Hydrocodone-Acetaminophen Active 0.5 TAB PO Q6H March 03, 2019 5:56pm [id number] 200 actuat albuterol 0.09 mg/actuat metered dose inhaler (3 sources) beta2-Adrene rgic Agonist Start: 06-13-2023 albuterol HFA 90 mcg/act inhaler 06/13/2023 Active Start: 03-03-2019 take 1 [IU] by inhal ation every six hours Albuterol Sulfate Active 1 UNIT INHALATION Q6H March 03, 2019 5:56pm aspirin 81 mg chewable tablet (2 sources) Platelet Aggregation Inhibitor, Nonsteroidal Anti-inflammatory Drug Start: 03-31-2023 Aspirin Low Dose 81 MG chewable tablet 03/31/2023 Active baclofen 5 mg oral tablet (1 source) gamma-Aminobutyric Acid-ergic Agonist Start: 10-13-2023 baclofen (Lioresal) 5 MG tablet 10/13/2023 Active candesartan cilexetil 32 mg oral tablet (1 source) Angiotensin 2 Receptor Floridalma Start: 03-11-2024 candesartan (Atacand) 32 MG tablet 03/11/2024 Active cholecalciferol 0.05 mg oral tablet (2 sources) Vitamin D Start: 03-24-2023 cholecalciferol (Vitamin D-3) 50 MCG (1999) tablet 03/24/2023 Active docusate sodium 100 mg oral tablet (2 [...] 2019 5:56pm empagliflozin 10 mg oral tablet (3 sources) Sodium-Glucose Cotransporter 2 Inhibitor Start: 03-03-2019 take 10 mg by mouth once daily Empagliflozin Active 10 MG PO Daily March 03, 2019 5:56pm ezetimibe 10 mg oral tablet (2 sources) Dietary Cholesterol Absorption Inhibitor Start: 04-04-2023 ezetimibe (Zetia) 10 MG tablet 04/04/2023 Active famotidine 40 mg oral tablet (2 sources) Histamine-2 Receptor Antagonist Start: 04-02-2023 famotidine (Pepcid) 40 MG tablet 04/02/2023 Active 12 hr guaiFENesin 600 mg extended release [...] PO Twice daily March 03, 2019 5:56pm losartan potassium 25 mg oral tablet (2 sources) Angiotensin 2 Receptor Floridalma Start: 03-11-2023 losartan (Cozaar) 25 MG tablet 03/11/2023 Active magnesium hydroxide 80 mg/ml oral suspension (2 sources) Start: 03-03-2019 take 1 mL by mouth once daily Magnesium Hydroxide (Milk Of Magnesia) 400 mg/5 mL Suspension Active 30 ML PO Daily March 03, 2019 5:56pm Hnfdj-Ecclf-Yolqb-Si berian Fir (Vicks Vapoinhaler) Inhaler (2 sources) Start: 03-03-2019 Ottos-Grjak-Hpzaw-S iberian Fir (Vicks Vapoinhaler) Inhaler Active 1 SPRAY INTRANASAL As Directed March 03, 2019 5:56pm metoprolol tartrate 25 mg oral tablet (2 sources) beta-Adrenergic Floridalma Start: 03-24-2023 metoprolol tartrate (Lopressor) 25 MG tablet 03/24/2023 Active 24 hr mirabegron 50 mg extended release oral tablet (4 sources) beta3-Adrenergic Agonist Start: 03-24-2023 Myrbetriq 50 MG 24 hr tablet 03/24/2023 Active Start: 03-03-2019 take 50 mg by mouth once daily Mirabegron Active 50 MG PO Daily March 03, 2019 5:56pm nitroglycerin 0.4 mg sublingual tablet (2 sources) Nitrate Vasodilator Start: 03-03-2019 Nitroglycerin Active 0.4 MG SUBLINGUAL EVERY 5 MINUTES March 03, 2019 5:56pm olopatadine 2 mg/ml ophthalmic solution (2 sources) Histamine-1 Receptor Inhibitor Start: 03-29-2023 olopatadine (Pataday) 0.2 % ophthalmic solution 03/29/2023 Active ondansetron 4 mg disintegrating oral tablet (2 sources) Serotonin-3 Receptor Antagonist Start: 03-03-2019 take 1 tablet by mouth every six hours Ondansetron Active 1 TAB PO Q6H March 03, 2019 5:56pm 24 hr oxybutynin chloride 10 mg extended release oral tablet (1 source) Cholinergic Muscarinic Antagonist Start: 03-23-2024 oxybutynin XL (Ditropan-XL) 10 MG 24 hr tablet 03/23/2024 Active microencapsulated potassium chloride 20 meq extended release oral tablet (4 sources) Start: 03-24-2023 potassium chloride CR (Klor-Con M20) 20 MEQ ER tablet 03/24/2023 Active Start: 03-03-2019 take 40 mEq by mouth once josey y Potassium Chloride Active 40 MEQ PO Daily March 03, 2019 5:56pm QUEtiapine 50 mg oral tablet (2 sources) Atypical Antipsychotic Start: 04-04-2023 QUEtiapine (SEROquel) 50 MG tablet 04/04/2023 Active rosuvastatin calcium 20 mg oral tablet (2 sources) HMG-CoA Reductase Inhibitor Start: 03-03-2019 take 20 mg by mouth once daily at bedtime Rosuvastatin Active 20 MG PO Daily at bedtime March 03, 2019 5:56pm tamsulosin hydrochloride 0.4 mg oral capsule (3 sources) alpha-Adrenergic Floridalma Start: 03-03-2019 take 0.4 mg by mouth once daily Tamsulosin Active 0.4 MG PO Daily March 03, 2019 5:56pm tamsulosin (Flom ax) 0.4 MG 24 hr capsule 1 capsule Active traZODone hydrochloride 50 mg oral tablet (2 sources) Serotonin Reuptake Inhibitor Start: 04-05-2023 traZODone (Desyrel) 50 MG tablet 04/05/2023 Active Trulicity 3 MG/0.5ML solution pen-injector (2 sources) Start: 04-09-2023 Trulicity 3 MG /0.5ML solution pen-injector 04/09/2023 Active Completed/Discontinued Medications Medication Drug Class(es) Dates Sig (Normalized) Sig (Original) apixaban 5 mg oral tablet (3 sources) Factor Xa Inhibitor Start: 03-03-2019 End: 03-08-2019 take 1 tablet by mouth twice daily Apixaban (Eliquis) 5 mg tablet Discontinued 5 MG PO Twice daily March 03, 2019 5:56pm March 08, 2019 2:30pm Problems Problem Classification Problem Date Documented Da te Episodic/Chronic Cataract (1 source) Artificial lens present; Translations: [Presence of intraocular lens] 04-11-2024 Chronic Diabetes mellitus without complication (1 source) Type 2 diabetes mellitus without complication; Translations: [Type 2 diabetes mellitus without complications] 04-11-2024 Chronic Retinal detachments; defects; vascular occlusion; and retinopathy (1 source) Detachment of retina of left eye; Translations: [Serous retinal detachment, left eye] 04-11-2024 Episodic Results Test Name Value Interpretation Reference Range [...] RESISTANT TO ALL B-LACTAM DRUGS. PERFORMED BY: [place] [address] PATHOLOGIST SILVER MINER BLASTING MERVIN ADHIKARI M.D. Normal [facility] Comment on above: Performed By: #### CUSUP #### [address] Bacteria identified Aer cx N om (Unsp spec)Ordered By: Ana María Valiente on 08-21-2021 Superficial Wound Culture Staphylococcus aureus [facility] Superficial Wound Cultureon 08-21-2021 Superficial Wound [...] RESISTANT TO ALL B-LACTAM DRUGS. PERFORMED BY: [place] [address] PATHOLOGIST SILVER MINER BLASTING MERVIN ADHIKARI M.D. [facility] Comment on above: Performed By: #### CUSUP #### [address] Na 02-09-2017 CNOV Office Visit (WHITNEY) --LAWSON SOLIMAN ([id number]) 1945 MDate Time Provider [id number]/27/17 JORDAN GARCIA (PA) During your visit today, we recorded the following information about you: Temperature Pulse Respiration Blood pressure 98.6 degrees 61/minute 18/minute 138/59Jordan Garcia PA-C 02/09/2017 2:24 PM AddendumPatient Name: Lawson CaballeroRN: [id number] For Visit: Fpc Visit at [facility] for a follow up fordischarge visit.Past [...] Status:Closed by JORDAN GARCIA on 02/09/17 Normal [facility] PROGRESSon 02-09-2017 PROGRESS HNO ID: [id number] thor: Jordan Cowart) GrantService: (none)Author Type: Physician AssistantType: Progress NotesFiled: 02/09/2017 2:24 PMNote Text:Patient Name: Lawson RingyMRN: [id number] For Visit: Fpc Visit at [facility] for a follow upfor discharge visit.Past [...] safety.Signature: JUHI Reinoso-CDate: February 09, 2017 Normal [facility] PROGRESSon 01-27-2017 PROGRESS HNO ID: [id number] thor: Giulia Caballeroice: (none)Author Type: PhysicianType: Progress NotesFiled: 01/30/2017 10:27 AMNote Text: [facility] NOTENAME: ZONIA SOLIMAN NO.: [id number] OF SERVICE: 01/27/2017[facility] HeartsDATE OF : 1945He is sitting up. He [...] Hyperlipidemia. -Continue with current pravastatin therapy.DICTATED BY: JUAN Magallon/AcusisD:01/27/2017 JOB# [id number]:[facility]ronic[facility] Signed by Giulia Hollis MD at 01/30/2017 10:19:29 Normal [facility] CNOVon 12-26-2016 CNOV Office Visit (WHITNEY) --HANSLAWSON Lieberman ([id number]) 1945 [facility] Time Provider [id number]/13/17 JORDAN GARCIA (PA) During your visit today, we recorded the following information about you: Temperature Pulse Respiration Blood pressure 98.4 degrees 64/minute 18/minute 112/70Paulettla Garcia PA-C 12/26/2016 2:27 PM SignedPatient Name: Lawson Lieberman FinavyMRN: [id number] For Visit: Fpc Visit at [facility] for a monthly visit.Past Medical Hx: [...] FOR* Status:Closed by JORDAN GARCIA on 12/26/16 [facility] PROGRESSon 12-26-2016 PROGRESS HNO ID: [id number] thor: Jordan Cowart) GrantService: (none)Author Type: Physician AssistantType: Progress NotesFiled: 12/26/2016 2:27 PMNote Text:Patient Name: Lawson DesirilvyMRN: [id number] For Visit: Fpc Visit at [facility] for a monthlyvisit.Past Medical Hx: No [...] safety.Signature: JUHI Reinoso-CDate: December 26, 2016 Normal [facility] PROGRESSon 12-01-2016 PROGRESS HNO ID: [id number] thor: Giulia Caballeroice: (none)Author Type: PhysicianType: Progress NotesFiled: 12/02/2016 5:17 PMNote Text: [facility] NOTENAME: ZONIA SOLIMAN NO.: [id number] OF SERVICE: [facility]/01/2016[facility] 1945He is resting in his [...] on pravastatin therapy.DICTATED BY: Giulia Hollis MDIAE/AcusisD:12/01/2016 [facility]# [id number]:Ady [facility] Cent[facility]ronic[facility] Signed by Giulia Hollis MD at 12/02/2016 17:13:10 Normal [facility] PROGRESSon 11-01-2016 PROGRESS HNO ID: [id number] thor: Maggie Westfall ([facility]) Hubert: (none)Author Type: Nurse PractitionerType: Progress NotesFiled: 11/05/2016 12:57 PMNote Text: [facility] NOTENAME: ZONIA SOLIMAN NO.: [id number] OF SERVICE: 11/01/2016[facility] 1945Seen today after review [...] can ambulate with assistance, but he needs [id number]-[id number] to walk a few steps. He is [...] to attend physical therapy.DICTATED BY: JANEY SKINNER/RickeysD:11/01/2016 JOB# [id number]:[place] Normal [facility] CNOVon 10-30-2016 CNOV Office Visit (WHITNEY) --LAWSON SOLIMAN ([id number]) 1945 MDate Time Provider Department10/30/16 RUT DOMINGUEZ (KAY) WHITNEY During your visit today, we recorded the following information about you: Temperature Pulse Respiration Blood pressure 97.4 degrees 62/minute 18/minute 142/70 Weight 98.4 kgRut Dominguez CNP 10/30/2016 4:33 PM SignedPatient Name: Lawson Lieberman JhonathanyMRN: [id number] For Visit: Fpc Visit at [facility] for a Acute for Left hip [...] HANDamp;P.?Medications: see current medication list in [facility] chart, reviewed(Medications in [facility] may not accurate, please see update in [facility] chart)?Objective Data:BP 142/70 Pulse 62 Temp 36.3 [...] I69.3545. Essential hypertension - ICD9: 401.9, ICD10: [id number] () 1/2 tab bid + q6 prnCont' [...] Normal [facility] PROGRESSon 10-30-2016 PROGRESS HNO ID: [id number] thor: Rut (Kay) AngeloService: (none)Author Type: Nurse PractitionerType: Progress NotesFiled: 10/30/2016 4:33 PMNote Text:Patient Name: Lawson RingyMRN: [id number] For Visit: Fpc Visit at [facility] for a Acute forL eft hip [...] HANDP.?Medications: see current medication list in [facility] chart, reviewed(Medications in [facility] may not accurate, please see update in [facility] chart)?Objective Data:BP 142/70 Pulse 62 Temp 36.3 [...] I69.3545. Essential hypertension - ICD9: 401.9, ICD10: [id number] (5/325) 1/2 tab bid + q6 prnCont' current meds regimenLab: ua+ c/sLS spine AND hip xrayPT consultObserve condition AND behaviorDiscuss plan of care w R AND staffI'll make no further changes at this time. We will continue to monitor foroverall comfort, function and safety.Signature: Rut Dominguez CNPDate: October 30, 2016 Normal [facility] PROGRESSon 10-02-2016 PROGRESS HNO ID: [id number] thor: Arjuni Yessenia ErenService: (none)Author Type: PhysicianType: Progress NotesFiled: 10/03/2016 5:28 PMNote Text: [facility] NOTENAME: LAWSON SOLIMANREGINA NO.: [id number] OF SERVICE: 10/02/2016Ady Aguilera is up and [...] pravastatin therapy.DICTATED BY: Giulia Hollis MDIAE/AcusisD:10/02/2016 JOB# [id number]:Ady [facility] Signed by Giulia Hollis MD at 10/03/2016 17:10:48 Normal [facility] Encounters Encounter Date Encounter Type Care Provider Facility Start: 04-11-2024 End: 04-11-2024 Charlie madridheet Allen De Leon MD Work Phone: [facility] Start: 04-11-2024 End: 04-11-2024 Charlie De Leon MD Work Phone: [facility] Start: 04-11-2024 End: 04-11-2024 ambulatory ALLEN DE LEON Not Available Start: 04-13-2023 End: 04-13-2023 ambulatory ALLEN DE LEON Not Available Start: 08-28-2021 End: 08-28-2021 Departed Referred JR Eliud Echevarria Work Phone: [facility] [place] Start: 08-21-2021 End: 08-21-2021 Departed Referred JR Eliud Echevarria Work Phone: [facility] [place] Procedures Date Procedure Procedure Detail Performing Clinician Start: 04-11-2024 End: 04-11-2024 [facility] medical xm&eval comprhnsv estab pt 1/> Type 2 diabetes mellitus without complication, without long-term current use of insulin (CMS/HCC) Allen De Leon MD Work Phone: Comment on above: Type 2 diabetes dereck itus without complication, without long- term current use of insulin (CMS/HCC) (Primary Dx); Pseudophakia; Left retinal detachment Start: 08-21-2021 Aerobic microbial culture JR Eliud Echevarria Work Phone: Plan of Treatment Date Care Activity Detail Author Start: 04-11-2024 End: 04-11-2024 Patient encounter procedure 04/11/2024 10:15 AM EST Office [facility] [address] [place] [phone] Allen De Leon MD [address] [place] [address] Arrived [facility] Comment on above: Arrived Start: 08-28-2021 Superficial Wound Culture Superficial Wound Culture [facility] Start: 08-21-2021 Superficial Wound Culture Superficial Wound Culture [facility] Bacteria identified in Unspecified specimen by Aerobe culture [facility] Work Phone: Payers Date Payer Category Payer Medicaid MEDICAID [facility] [id number] 2017 Medicaid [id number] 2012 Medicare MEDICARE [id number] 2012 Medicare [id number] 1945 Unknown [id number] 1945 Unknown [id number] Medicaid [facility] [id number] Medicare Medicare [id number] Self-pay Self Pay [id number] Social History Date Type Detail Facility Start: 03-08-2019 End: 04-13-2023 Tobacco smoking status NHIS Never smoked tobacco (finding) [facility] Start: 1945 Sex Assigned At Male [facility] Start: 04-13-2023 Tobacco use and exposure Smokeless tobacco non-user [facility] Start: 04-13-2023 History of Social function [facility] Start: 04-13-2023 Tobacco use panel [facility] Start: 1945 Sex assigned at Not on file [facility] History of Present illness Narrative 04-11-2024 Allen De Leon MD - 04/11/2024 10:15 AM EST Note Date & Type Note Facility 04-11-2024 History of Presen t illness Narrative Assessment/Plan Diabetes Mellitus without sign of diabetic retinopathy on dilated retinal examination today OU: Discussed the pathophysiology of diabetes and its effect on the eye. Stressed the importance of strong glucose control. Advised of importance of at least yearly dilated examinations, but to contact us immediately for any problems or concerns. documented in this encounter [facility] Evaluation note Note Date & Type Note Facility Evaluation note No assessment information availa ble [facility] Work Phone: Evaluation note Note Date & Type Note Facility Evaluation note Diagnosis Type 2 diabetes mellitus without complication, without long-term current use of insulin ([facility])- 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 Left retinal detachment Unspecified retinal detachment documented in this encounter [facility] Summary Purpose Family History No Family History [...] section and content) DATE CREATED AUTHOR 09/08/2017 [facility] DATE CREATED AUTHOR AUTHOR'S ORGANIZ ATION 09/10/2021 [facility] DATE CREATED AUTHOR AUTHOR'S ORGANIZ ATION 04/11/2024 [facility] EPIC Care Teams (unrecognized sec tion and content) Team Status: Inactive Member Role Status Dates Eliud Echevarria JR DO Primary Care Provider Active Ana María Valiente MD Attending Provider Active Team Status: Active Member Role Status Dates Eliud Echevarria JR DO Primary Care Provider Active Dry Box Operator Relationship Specialty Start Date End Date Eliud Echevarria MD [facility] [place] [address] PCP - General Internal Medicine 04/13/23 Dry Box Operator Relationship Specialty Start Date End Date Eliud Echevarria MD [facility] [place] [address] PCP - General Internal Medicine 04/13/23 Goals (unrecognized section and content) Goals may be documented in a n alternate sectionGoals may be documented in an alternate section Reason for Visit (unrecogniz ed section and content) Reason Comments Diabetic Eye Exam FOR RECORDS PERTAINING TO PATIENTS WHO ARE [...] BE BASED ON THE PRIMARY CLINICAL RECORDS. [facility]. provides no warranty or guarantee of the accuracy or completeness of information in this document.
[2024-04-27 16:45] LABS: Basophils Absolute Auto 0.1 10^3/uL (0.0-0.1); Basophils Percent Auto 0.9 % (0.2-2.0); Eosinophils Absolute Auto 0.2 10^3/uL (0.0-0.7); Eosinophils Percent Auto 4.5 % (0.9-7.0); Hematocrit 45.8 % (42.0-54.0); Hemoglobin 15.1 g/dL (14.0-18.0); Immature Granulocytes Abs Auto 0.02 10^3/uL (0.00-0.03); Immature Granulocytes Pct Auto 0.4 % (0.0-0.5); Lymphocytes Absolute Auto 1.4 10^3/uL (1.2-3.8); Lymphocytes Percent Auto 25.4 % (20.5-60.0); Mean Corpuscular Hemoglobin 30.9 pg (25.9-34.0); Mean Corpuscular Volume 93.7 fL (80.0-94.0); Mean Platelet Volume 8.7 fL (9.5-13.5); Monocytes Absolute Auto 0.7 10^3/uL (0.3-0.8); Monocytes Percent Auto 12.6 % (1.7-12.0); Neutrophils Percent Auto 56.2 % (43.0-75.0); Platelet Count 205 10^3/uL (150-450); Red Blood Count 4.89 10^6/uL (4.70-6.10); Red Cell Distribution Width 12.8 % (11.0-15.0); White Blood Count 5.3 10^3/uL (4.0-11.0)
[2024-04-27] MEDS: ENALAPRILAT DIHYDRATE 1.25 MG/ML VIAL IV (16:50)
[2024-04-27] MEDS: LABETALOL HCL 20 MG/4 ML SYRINGE 10 MG IVP (16:51)
[2024-04-27 16:57] LABS: INR 1.11; Prothrombin Time 11.6 sec (9.0-11.6)
[2024-04-27 17:00] LABS: Alanine Aminotransferase 15 U/L (16-63); Albumin Globulin Ratio 1.1; Albumin Level 3.8 g/dL (3.4-5.0); Alkaline Phosphatase 64 U/L (46-116); Anion Gap 11.8; Aspartate Amino Transferase 12 U/L (15-37); BUN Creatinine Ratio 9.9; Bilirubin Total 1.3 mg/dL (0.2-1.0); Calcium 9.4 mg/dL (8.5-10.1); Carbon Dioxide 30.1 mmol/L (21.0-32.0); Chloride 105 mmol/L (98-107); Estimated GFR (African America >60 (>=60 mL/min/1.73m^2); Estimated GFR (Non-African Ame >60 (>=60 mL/min/1.73m^2); Globulin 3.5 g/dL; Glucose 110 mg/dL (74-106); Potassium 3.9 mmol/L (3.5-5.1); Sodium 143 mmol/L (136-145); Total Protein 7.3 g/dL (6.4-8.2)
[2024-04-27 17:10] LABS: Thyroid Stimulating Hormone 3.229 uIU/mL (0.358-3.740); Troponin I High Sensitivity 10.3 pg/mL (4.0-76.1)
[2024-04-27 17:11] LABS: Lactate/Lactic Acid 2.1 mmol/L (0.4-2.0)
--- NOTE | 2024-04-27 18:29 | P.HP_ITS ---
HPI H&P: HPI History of Present Illness Chief complaint: altered mental status, htn Narrative: Patient presented emergency room with altered mental status, headache secondary to hypertensive urgency with systolic blood pressure greater than 220 and diastolic blood pressure greater than 120, patient was given IV Vasotec and labetalol with improvement in blood pressure but still elevated, headache still persisting but improved When I saw patient in the emergency room, resting comfortably bed, no other complaints other than those as outlined above Opioid HPI Opioid Management Most Recent Pain and Opioid Data: Last Pain Scale 5 08/20/23 21:00 08/20/23 Last ORT Total Score 0 08/20/23 10:55 08/20/23 Last ORT Risk Category Low Risk 08/20/23 10:55 08/20/23 Review of Systems ROS Status of ROS 10 or more systems reviewed and unremark able except as noted in history and below [facility] Medical History (Updated 04/27/24 @ 17:29 by JUHI Farias) Hemiparesis affecting left side as late effect of cerebrovascular accident ?I69.354 - Hemiplegia and hemiparesis following cerebral infarction affecting left non-dominant side (ICD-10) H/O: CVA (cerebrovascular accident) ?Z86.73 - Personal history of transient ischemic attack (TIA), and cerebral infarction without residual deficits (ICD-10) Urine retention ?R33.9 - Retention of urine, unspecified (ICD-10) Anxiety ?F41.9 - Anxiety disorder, unspecified (ICD-10) Hyperlipidemia ?E78.5 - Hyperlipidemia, unspecified (ICD-10) Hypertension ?I10 - Essential (primary) hypertension (ICD-10) Diabetes ?E11.9 - Type 2 diabetes mellitus without complications (ICD-10) Coronary artery disease ?I25.10 - Atherosclerotic heart disease of [place] coronary artery without angina pectoris (ICD-10) BPH (benign prostatic hyperplasia) ?N40.0 - Benign prostatic hyperplasia without lower urinary tract symptoms (ICD-10) A-fib ?I48.91 - Unspecified atrial fibrillation (ICD-10) Right-sided cerebrovascular accident (CVA) ?I63.9 - Cerebral infarction, unspecified (ICD-10) Social History Within the past year, how often did you have a drink containing alcohol: never Score interpretation: A score less than 4 is consistent with normal alcohol co nsumption. Smoking status: Never smoker Non-prescribed substance use: denies use Previous occupational history: retired Highest level of school completed/degree received: high school graduate Little interest or pleasure in doing things: not at all Feeling down, depressed, or hopeless: not at all Meds Home Medications and Allergies Home Medications ?Medication ?Instructions ?Recorded ?Confirmed ?Type acetaminophen 500 mg tablet 1,000 mg PO BID 08/20/23 04/27/24 History apixaban 5 mg tablet (Eliquis) 5 mg PO Q12H 08/20/23 04/27/24 History aspirin 81 mg chewable tablet 81 mg PO DAILY 08/20/23 04/27/24 History cholecalciferol (vitamin D3) 50 50 mcg PO DAILY 08/20/23 04/27/24 History mcg (2,000 unit) tablet dulaglutide 3 mg/0.5 mL 3 mg subcut .08/20/23 04/27/24 History subcutaneous pen injector (Trulicity) duloxetine 60 mg capsule,delayed 60 mg PO DAILY 08/20/23 04/27/24 History release dutasteride 0.5 mg capsule 0.5 mg PO DAILY 08/20/23 04/27/24 History empagliflozin 10 mg tablet 10 mg PO DAILY 08/20/23 04/27/24 History (Jardiance) ezetimibe 10 mg tablet 10 mg PO DAILY 08/20/23 04/27/24 History famotidine 40 mg tablet 40 mg PO BEDTIME 08/20/23 04/27/24 History metoprolol tartrate 25 mg tablet 25 mg PO .QHS 08/20/23 04/27/24 History mirabegron 50 mg tablet,extended 50 mg PO DAILY 08/20/23 04/27/24 History release 24 hr (Myrbetriq) ondansetron HCl 4 mg tablet 4 mg PO Q6H PRN nausea and vomiting 08/20/23 04/27/24 History potassium chloride 20 mEq 20 meq PO DAILY 08/20/23 04/27/24 History tablet,extended release(part/cryst) quetiapine 50 mg tablet 50 mg PO BEDTIME 08/20/23 04/27/24 History rosuvastatin 20 mg tablet 20 mg PO BEDTIME 08/20/23 04/27/24 History tamsulosin 0.4 mg capsule 0.4 mg PO BID 08/20/23 04/27/24 History trazodone 50 mg tablet 25 mg PO BEDTIME 08/20/23 04/27/24 History acarbose 100 mg tablet 100 mg PO TID 04/27/24 04/27/24 History acetaminophen 325 mg tablet 650 mg PO Q4H PRN fever or pain 04/27/24 04/27/24 History albuterol sulfate 90 mcg/actuation 1 puff inhalation Q4H PRN 04/27/24 04/27/24 History aerosol inhaler shortness of breath or wheezing baclofen 5 mg tablet 5 mg PO BID PRN muscle spasm 04/27/24 04/27/24 History candesartan 32 mg tablet 32 mg PO QAM 04/27/24 04/27/24 History diclofenac sodium 1 % topical gel 2 g topical TID PRN pain 04/27/24 04/27/24 History empagliflozin 10 mg tablet 10 mg PO DAILY 04/27/24 04/27/24 History (Jardiance) metoprolol tartrate 50 mg tablet 50 mg PO QAM 04/27/24 04/27/24 History (Lopressor) nystatin 100,000 unit/gram topical 1 applic topical BID PRN redness 04/27/24 04/27/24 History powder olopatadine 0.2 % eye drops 1 drp ophthalmic (eye) Q24H PRN 04/27/24 04/27/24 History dry eyes oxybutynin chloride 10 mg 10 mg PO DAILY 04/27/24 04/27/24 History tablet,extended release 24 hr Allergies Allergy/AdvReac Type Severity Reaction Status Date / Time No Known Drug Allergies Allergy Verified 04/27/24 16:24 Exam Constitutional Vital Signs, click to edit/add: Last Vital Signs Temp 97.8 F 04/27/24 16:17 Pulse 87 04/27/24 18:00 Resp 21 H 02/12/25 18:00 BP 169/111 H 04/27/24 18:00 Pulse Ox 98 04/27/24 18:00 O2 Del Method Room Air 04/27/24 16:17 Documenting provider has reviewed patient's vital signs: yes Common normals: no apparent distress Chest Common normals: inspection of chest normal Respiratory Common normals: normal respiratory effort and no retractions Cardio Common normals: regular rate and regular rhythm GI Common normals: Normal to inspection, nondistended, normoactive bowel sounds present Extremity Common normals: normal to inspection, full ROM, normal capillary refill and no clubbing, cyanosis or edema Neuro Common normals: CN's II-XII intact bilaterally, moves all extremities and no focal motor deficits Results Labs Labs: Short CBC 04/27/24 Range/Units 16:30 WBC 5.3 (4.0-11.0) 10^3/uL Hgb 15.1 (14.0-18.0) g/dL Hct 45.8 (42.0-54.0) % Plt Count 205 (150-450) 10^3/uL BMP 04/27/24 16:30 Sodium 143 Potassium 3.9 Chloride 105 Carbon Dioxide 30.1 BUN 10.0 Creatinine 1.01 Glucose 110 H Calcium 9.4 Liver Function 04/27/24 Range/Units 16:30 Total Bilirubin 1.3 H (0.2-1.0) mg/dL AST 12 L (15-37) U/L ALT 15 L (16-63) U/L Alkaline Phosphatase 64 (46-116) U/L Albumin 3.8 (3.4-5.0) g/dL Assessment and Plan Assessment and Plan (1) Altered mental status: (2) Hypertension: Plan Admission findings: Respiratory distress, severely elevated systolic and diastolic blood pressure with headache which would be consistent with acute hypertensive urgency, will check on other labs that could affect cardiac function Hypertensive urgency-continue with home medication but increase beta-jesse to 50 mg twice a day, as needed hydralazine Atrial fibrillation with rate controlled-medications as outlined above Positive lactic acidosis, will check urinalysis as possible inciting cause for the hypertensive urgency Depression-continue with home medications NIDDM-insulin sliding scale Bladder spasms-continue with home medications Anxiety and depression continue with home medications BPH-continue with home medications Admission status: Patient with hypertensive urgency, continue to workup etiologies, with significant elevation in his blood pressure and the alteration in mental status, medically necessary treatment will likely take place over 2 midnights to ensure patient is stability, inpatient status
--- OUTSIDE RECORDS SUMMARY | 2024-04-27 18:54 | XMS_ITS | CCD ---
Author Organization [facility] Care Team Providers Care Pitch Worker Name Role Phone JR Eliud Echevarria Primary Care Provider [phone] MD Ana María Valiente Attending Provider Eliud Echevarria MD Primary Care Provider ALLEN [...] TAB PO Q6H March 03, 2019 5:56pm [id number] 200 actuat albuterol 0.09 mg/actuat metered dose [...] ML PO Daily March 03, 2019 5:56pm Lgrhp-Sheep-Ljetx-Si berian Fir (Vicks Vapoinhaler) Inhaler (2 sources) Start: 03-03-2019 Ibwns-Rmkgt-Poaqk-S iberian Fir (Vicks Vapoinhaler) Inhaler Active 1 [...] RESISTANT TO ALL B-LACTAM DRUGS. PERFORMED BY: [place] [address] PATHOLOGIST DRUM REEL CUTTER MERVIN ADHIKARI M.D. Normal [facility] Comment on above: Performed By: #### CUSUP #### [address] Bacteria identified Aer cx N om (Unsp spec)Ordered By: Ana María Valiente on 08-21-2021 Superficial Wound Culture Staphylococcus aureus [facility] Superficial Wound Cultureon 08-21-2021 Superficial Wound Culture [...] RESISTANT TO ALL B-LACTAM DRUGS. PERFORMED BY: [place] [address] PATHOLOGIST DRUM REEL CUTTER MERVIN ADHIKARI M.D. [facility] Comment on above: Performed By: #### CUSUP #### [address] Na 02-09-2017 CNOV Office Visit (WHITNEY) --LAWSON SOLIMAN ([id number]) 1945 MDate Time Provider Iwnyzlyhce85/27/17 JORDAN GARCIA (PA) During your visit today, we recorded the following information about you: Temperature Pulse Respiration Blood pressure 98.6 degrees 61/minute 18/minute 138/59Jordan Garcia PA-C 02/09/2017 2:24 PM AddendumPatient Name: Lawson CaballeroRN: [id number] For Visit: Fpc Visit at [facility] for a follow up fordischarge visit.Past [...] Status:Closed by JORDAN GARCIA on 02/09/17 [facility] 02-09-2017 PROGRESS HNO ID: [id number] thor: Jordan Cowart) GrantService: (none)Author Type: Physician AssistantType: Progress NotesFiled: 02/09/2017 2:24 PMNote Text:Patient Name: Lawson RingyMRN: [id number] For Visit: Fpc Visit at [facility] for a follow upfor discharge visit.Past [...] safety.Signature: JUHI Reinoso-CDate: February 09, 2017 Normal [facility] PROGRESSon 01-27-2017 PROGRESS HNO ID: [id number] thor: Giulia Caballeroice: (none)Author Type: PhysicianType: Progress NotesFiled: 01/30/2017 10:27 AMNote Text: [facility] NOTENAME: ZONIA SOLIMAN NO.: [id number] OF SERVICE: 01/27/2017[facility] SunsetsDATE OF : 1945He is sitting up. He [...] current pravastatin therapy.DICTATED BY: JUAN Magallon/AcusisD:01/27/2017 JOB# [id number]:[facility] Signed by Giulia Hollis MD at 01/30/2017 10:19:29 Normal [facility] CNOVon 12-26-2016 CNOV Office Visit (WHITNEY) --HANSLAWSON Lieberman ([id number]) 1945 [facility] Time Provider Akpfalrqvg69/13/17 JORDAN GARCIA (PA) During your visit today, we recorded the following information about you: Temperature Pulse Respiration Blood pressure 98.4 degrees 64/minute 18/minute 112/70Paulettla Garcia PA-C 12/26/2016 2:27 PM SignedPatient Name: Lawson Lieberman FinavyMRN: [id number] For Visit: Fpc Visit at [facility] for a monthly visit.Past Medical Hx: [...] FOR* Status:Closed by JORDAN GARCIA on 12/26/16 [facility] PROGRESSon 12-26-2016 PROGRESS HNO ID: [id number] thor: Jordan Cowart) GrantService: (none)Author Type: Physician AssistantType: Progress NotesFiled: 12/26/2016 2:27 PMNote Text:Patient Name: Lawson DesirilvyMRN: [id number] For Visit: Fpc Visit at [facility] for a monthlyvisit.Past Medical Hx: No [...] safety.Signature: JUHI Reinoso-CDate: December 26, 2016 Normal [facility] PROGRESSon 12-01-2016 PROGRESS HNO ID: [id number] thor: Giulia Caballeroice: (none)Author Type: PhysicianType: Progress NotesFiled: 12/02/2016 5:17 PMNote Text: [facility] NOTENAME: ZONIA SOLIMAN NO.: [id number] OF SERVICE: 12/01/2016[facility] 1945He is resting in his [...] on pravastatin therapy.DICTATED BY: Giulia Hollis MDIAE/AcusisD:12/01/2016 [facility]# [id number]:Ady [facility] Signed by Giulia Hollis MD at 12/02/2016 17:13:10 Normal [facility] PROGRESSon 11-01-2016 PROGRESS HNO ID: [id number] thor: Maggie Westfall ([facility]) Hubert: (none)Author Type: Nurse PractitionerType: Progress NotesFiled: 11/05/2016 12:57 PMNote Text: [facility] NOTENAME: ZONIA SOLIMAN NO.: [id number] OF SERVICE: 11/01/2016[facility] 1945Seen today after review of [...] can ambulate with assistance, but he needs 8-dh-5nghjltgwrh to walk a few steps. He is [...] attend physical therapy.DICTATED BY: JANEY SKINNER/RickeysD:11/01/2016 JOB# [id number]:[place] Normal [facility] CNOVon 10-30-2016 CNOV Office Visit (WHITNEY) --LAWSON SOLIMAN ([id number]) 1945 MDate Time Provider Department10/30/16 RUT DOMINGUEZ (KAY) WHITNEY During your visit today, we recorded the following information about you: Temperature Pulse Respiration Blood pressure 97.4 degrees 62/minute 18/minute 142/70 Weight 98.4 kgRut Dominguez CNP 10/30/2016 4:33 PM SignedPatient Name: Lawson Lieberman JhonathanyMRN: [id number] For Visit: Fpc Visit at [facility] for a Acute for Left hip and [...] see HANDamp;P.?Medications: see current medication list in [facility] chart, reviewed(Medications in [facility] may not accurate, please see update in [facility] chart)?Objective Data:BP 142/70 Pulse 62 Temp [...] I69.3545. Essential hypertension - ICD9: 401.9, ICD10: Z63Pamwl () 1/2 tab bid + q6 prnCont' [...] by RUT DOMINGUEZ CNP on 10/30/16 [facility] PROGRESSon 10-30-2016 PROGRESS HNO ID: [id number] thor: Rut (Kay) AngeloService: (none)Author Type: Nurse PractitionerType: Progress NotesFiled: 10/30/2016 4:33 PMNote Text:Patient Name: Lawson RingyMRN: [id number] For Visit: Fpc Visit at [facility] for a Acute forL eft hip and [...] see HANDP.?Medications: see current medication list in [facility] chart, reviewed(Medications in [facility] may not accurate, please see update in [facility] chart)?Objective Data:BP 142/70 Pulse 62 Temp [...] I69.3545. Essential hypertension - ICD9: 401.9, ICD10: I78Ovfzu (5/325) 1/2 tab bid + q6 prnCont' current meds regimenLab: ua+ c/sLS spine AND hip xrayPT consultObserve condition AND behaviorDiscuss plan of care w R AND staffI'll make no further changes at this time. We will continue to monitor foroverall comfort, function and safety.Signature: Rut Dominguez CNPDate: October 30, 2016 Normal [facility] PROGRESSon 10-02-2016 PROGRESS HNO ID: [id number] thor: Arjuni Yessenia ErenService: (none)Author Type: PhysicianType: Progress NotesFiled: 10/03/2016 5:28 PMNote Text: [facility] NOTENAME: LAWSON SOLIMANREGINA NO.: [id number] OF SERVICE: 10/02/2016Ady Aguilera is up and [...] pravastatin therapy.DICTATED BY: Giulia Hollis MDIAE/AcusisD:10/02/2016 JOB# [id number]:Ady [facility] Signed by Giulia Hollis MD at 10/03/2016 17:10:48 Normal [facility] Encounters Encounter Date Encounter Type Care Provider Facility Start: 04-11-2024 End: 04-11-2024 Charlie madridheet Allen De Leon MD Work Phone: [facility] Start: 04-11-2024 End: 04-11-2024 Charlie De Leon MD Work Phone: [facility] Start: 04-11-2024 End: 04-11-2024 ambulatory ALLEN DE LEON Not Available Start: 04-13-2023 End: 04-13-2023 ambulatory ALLEN DE LEON Not Available Start: 08-28-2021 End: 08-28-2021 Departed Referred JR Eliud Echevarria Work Phone: [facility] [place] Start: 08-21-2021 End: 08-21-2021 Departed Referred JR Eliud Echevarria Work Phone: [facility] [place] Procedures Date Procedure Procedure Detail Performing Clinician Start: 04-11-2024 End: 04-11-2024 [facility] medical xm&eval comprhnsv estab pt 1/> Type [...] [facility] [address] [place] [id number] Allen De Leon MD [address] [place] [address] Arrived [facility] Comment on above: Arrived Start: 08-28-2021 Superficial Wound Culture Superficial Wound Culture [facility] Start: 08-21-2021 Superficial Wound Culture Superficial Wound Culture [facility] Bacteria identified in Unspecified specimen by Aerobe culture [facility] Work Phone: Payers Date Payer Category Payer Medicaid MEDICAID [facility] [id number] 2017 Medicaid [id number] 2012 Medicare MEDICARE [id number] 2012 Medicare [id number] 1945 Unknown [id number] 1945 Unknown [id number] Medicaid [facility] [id number] Medicare Medicare [id number] Self-pay Self Pay [id number] Social History Date Type Detail Facility Start: 03-08-2019 End: 04-13-2023 Tobacco smoking status NHIS Never smoked tobacco (finding) [facility] Start: 1945 Sex Assigned At Male F [facility] Start: 04-13-2023 Tobacco use and exposure Smokeless tobacco non-user [facility] Start: 04-13-2023 History of Social function [facility] Start: 04-13-2023 Tobacco use panel [facility] Start: 1945 Sex assigned at Not [...] No assessment information availa ble [facility] Work Phone: Evaluation note Note Date & Type Note Facility Evaluation note Diagnosis Type 2 diabetes mellitus without complication, without long-term current use of insulin ([facility])- 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 [...] section and content) DATE CREATED AUTHOR 09/08/2017 [facility] DATE CREATED AUTHOR AUTHOR'S ORGANIZ ATION 09/10/2021 [facility] DATE CREATED AUTHOR AUTHOR'S ORGANIZ ATION 04/11/2024 [facility] EPIC Care Teams (unrecognized sec tion and content) Team Status: Inactive Member Role Status Dates Eliud Echevarria JR DO Primary Care Provider Active Ana María Valiente MD Attending Provider Active Team Status: Active Member Role Status Dates Eliud Echevarria JR DO Primary Care Provider Active Pitch Worker Relationship Specialty Start Date End Date Eliud Echevarria MD [facility] [place] [address] PCP - General Internal Medicine 04/13/23 Pitch Worker Relationship Specialty Start Date End Date Eliud Echevarria MD [facility] [place] [address] PCP - General Internal Medicine 04/13/23 Goals [...] BE BASED ON THE PRIMARY CLINICAL RECORDS. [facility] Hospital[facility]. provides no warranty or guarantee of the accuracy or completeness of information in this document.
[2024-04-27 20:32] LABS: Lactate/Lactic Acid 1.3 mmol/L (0.4-2.0)
[2024-04-27] MEDS: TAMSULOSIN HCL 0.4 MG CAPSULE PO (20:48)
[2024-04-27] MEDS: FAMOTIDINE 20 MG TABLET 40 MG PO (20:48)
[2024-04-27] MEDS: TRAZODONE HCL 50 MG TABLET 25 MG PO (20:48)
[2024-04-27] MEDS: APIXABAN 5 MG TABLET PO (20:48)
[2024-04-27] MEDS: QUETIAPINE FUMARATE 25 MG TABLET 50 MG PO (20:49)
[2024-04-27] MEDS: METOPROLOL TARTRATE 50 MG TABLET PO (20:49)
[2024-04-27] MEDS: ACETAMINOPHEN 500 MG TABLET 1000 MG PO (20:49)
[2024-04-28 05:10] VITALS: O2SAT 93
[2024-04-28] MEDS: ACARBOSE 50 MG TABLET 100 MG PO (05:28)
[2024-04-28 05:35] VITALS: BP 155/85; PULSE 80; TEMP 36.6; O2SAT 94
[2024-04-28 05:52] LABS: Basophils Absolute Auto 0.1 10^3/uL (0.0-0.1); Basophils Percent Auto 1.2 % (0.2-2.0); Eosinophils Absolute Auto 0.2 10^3/uL (0.0-0.7); Eosinophils Percent Auto 4.1 % (0.9-7.0); Hemoglobin 14.5 g/dL (14.0-18.0); Immature Granulocytes Abs Auto 0.01 10^3/uL (0.00-0.03); Immature Granulocytes Pct Auto 0.2 % (0.0-0.5); Lymphocytes Absolute Auto 1.4 10^3/uL (1.2-3.8); Lymphocytes Percent Auto 27.4 % (20.5-60.0); Mean Corpuscular HGB Conc 33.7 g/dL (29.9-35.2); Mean Corpuscular Hemoglobin 31.7 pg (25.9-34.0); Mean Corpuscular Volume 93.9 fL (80.0-94.0); Mean Platelet Volume 8.6 fL (9.5-13.5); Monocytes Absolute Auto 0.6 10^3/uL (0.3-0.8); Monocytes Percent Auto 11.4 % (1.7-12.0); Neutrophils Absolute Auto 2.8 10^3/uL (1.4-6.5); Neutrophils Percent Auto 55.7 % (43.0-75.0); Platelet Count 175 10^3/uL (150-450); Red Blood Count 4.58 10^6/uL (4.70-6.10); White Blood Count 5.1 10^3/uL (4.0-11.0)
[2024-04-28 06:02] LABS: Anion Gap 11.5; BUN Creatinine Ratio 11.3; Calcium 8.9 mg/dL (8.5-10.1); Carbon Dioxide 29.1 mmol/L (21.0-32.0); Chloride 106 mmol/L (98-107); Estimated GFR (African America >60 (>=60 mL/min/1.73m^2); Estimated GFR (Non-African Ame >60 (>=60 mL/min/1.73m^2); Glucose 109 mg/dL (74-106); Potassium 3.6 mmol/L (3.5-5.1); Sodium 143 mmol/L (136-145)
--- NOTE | 2024-04-28 06:12 | P.DS_ITS ---
DS: Providers Provider Date of admission: 04/27/24 18:46 Primary care physician: BOB DENT DO Consults: 04/27/24 18:19 Consult to Pharmacy Routine Consulting Provider: Reason for consultation: Please [place] me when Med Rec is Updated Has provider been notified: No Occupational Therapy Eval and Treat Routine Reason for consultation: Only if needed for Rehab Has provider been notified: No Physical Therapy Eval and Treat Routine Reason for consultation: Eval and Treat Has provider been notified: No DS: Diagnosis Discharge Diagnosis (1) Altered mental status: (2) Hypertension: Plan Admission findings: Respiratory distress, severely elevated systolic and diastolic blood pressure with headache which would be consistent with acute hypertensive urgency, will check on other labs that could affect cardiac function Hypertensive urgency-continue with home medication but increase beta-jesse to 50 mg twice a day, as needed hydralazine Atrial fibrillation with rate controlled-medications as outlined above Positive lactic acidosis, will check urinalysis as possible inciting cause for the hypertensive urgency Depression-continue with home medications NIDDM-insulin sliding scale Bladder spasms-continue with home medications Anxiety and depression continue with home medications BPH-continue with home medications Admission status: Patient with hypertensive urgency, continue to workup etiolog ies, with significant elevation in his blood pressure and the alteration in mental status, medically necessary treatment will likely take place over 2 midnights to ensure patient is stability, inpatient status ? DS: Summary Hospital Course Hospital Course: Patient in the emergency room, yesterday he was still with significant headache and blood pressure is only somewhat improved, overnight though with change in his oral medications he is not needed any further IV medications, he is much improved much faster than expected, expected with changes to resolve, labile high blood pressure in a.m. with some hypotension, so far this morning he is stable does still have a slight headache but overall feels much improved, no change in left-sided weakness from admission from previous stroke, did improve faster than expected but will transfer back to his assisted living facility with a change dose to metoprolol 50 mg twice daily Status at Discharge Overall status at discharge: patient is not back to baseline Time Spent with Patient Time attestation: Total time spent providing and/or coordinating discharge services: Time spent: greater than 30 minutes Exam Constitutional Vital Signs, click to edit/add: Last Vital Signs Temp 97.9 F 04/28/24 05:35 Pulse 80 04/28/24 05:35 Resp 16 04/28/24 05:35 BP 155/85 H 04/28/24 05:35 Pulse Ox 94 L 04/28/24 05:35 O2 Del Method Room Air 04/28/24 05:35 Documenting provider has reviewed patient's vital signs: yes Common normals: no apparent distress Chest Common normals: inspection of chest normal Respiratory Common normals: normal respiratory effort and no retractions Cardio Common normals: regular rate and regular rhythm GI Common normals: Normal to inspection, nondistended, normoactive bowel sounds present Extremity Common normals: normal to inspection, full ROM, normal capillary refill and no clubbing, cyanosis or edema Neuro Common normals: CN's II-XII intact bilaterally, moves all extremities (Use movement left-sided from previous stroke) and no focal motor deficits DS: Data Data Completed and Pending Labs on day of discharge: Labs from last 24 hours 04/28/24 04/27/24 04/27/24 05:26 20:07 16:30 WBC 5.1 5.3 RBC 4.58 L 4.89 Hgb 14.5 15.1 Hct 43.0 45.8 MCV 93.9 93.7 MCH 31.7 30.9 MCHC 33.7 33.0 RDW 13.0 12.8 Plt Count 175 205 MPV 8.6 L 8.7 L Neut % (Auto) 55.7 56.2 Lymph % (Auto) 27.4 25.4 Finney % (Auto) 11.4 12.6 H Eos % (Auto) 4.1 4.5 Baso % (Auto) 1.2 0.9 Neut # (Auto) 2.8 3.0 Lymph # (Auto) 1.4 1.4 Finney # (Auto) 0.6 0.7 Eos # (Auto) 0.2 0.2 Baso # (Auto) 0.1 0.1 Abs Immat Gran (auto) 0.01 0.02 Imm/Tot Granulo (auto) 0.2 0.4 PT 11.6 INR 1.11 Sodium 143 143 Potassium 3.6 3.9 Chloride 106 105 Carbon Dioxide 29.1 30.1 Anion Gap 11.5 11.8 BUN 11.0 10.0 Creatinine 0.97 1.01 Est GFR ( Amer) >60 >60 Est GFR (Non-Af Amer) >60 >60 BUN/Creatinine Ratio 11.3 9.9 Glucose 109 H 110 H Lactate 1.3 2.1 H Calcium 8.9 9.4 Total Bilirubin 1.3 H AST 12 L ALT 15 L Alkaline Phosphatase 64 Troponin I High Sens 10.3 NT-Pro-B Natriuret Pep 1294.0 Total Protein 7.3 Albumin 3.8 Globulin 3.5 Albumin/Globulin Ratio 1.1 TSH 3.229 Discharge Plan Discharge Disposition: Home, Self-Care Discharge Medications: New metoprolol tartrate 50 mg Tablet 50 mg PO BID Qty: 60 0RF Continued famotidine 40 mg tablet 40 mg PO BEDTIME potassium chloride 20 mEq tablet,ER particles/crystals 20 meq PO DAILY aspirin 81 mg tablet,chewable 81 mg PO DAILY ezetimibe 10 mg tablet 10 mg PO DAILY dutasteride 0.5 mg capsule 0.5 mg PO DAILY duloxetine 60 mg capsule,delayed release(DR/EC) 60 mg PO DAILY quetiapine 50 mg tablet 50 mg PO BEDTIME trazodone 50 mg tablet 25 mg PO BEDTIME ondansetron HCl 4 mg tablet 4 mg PO Q6H PRN (Reason: nausea and vomiting) tamsulosin 0.4 mg capsule 0.4 mg PO BID rosuvastatin 20 mg tablet 20 mg PO BEDTIME cholecalciferol (vitamin D3) 50 mcg (2,000 unit) tablet 50 mcg PO DAILY mirabegron [Myrbetriq] 50 mg tablet extended release 24 hr 50 mg PO DAILY Eliquis 5 mg tablet 5 mg PO Q12H Jardiance 10 mg tablet 10 mg PO DAILY Trulicity 3 mg/0.5 mL pen injector 3 mg SUBCUT . acetaminophen 500 mg tablet 1,000 mg PO BID acarbose 100 mg tablet 100 mg PO TID acetaminophen 325 mg tablet 650 mg PO Q4H PRN (Reason: fever or pain) albuterol sulfate 90 mcg/actuation HFA aerosol inhaler 1 puff INHALATION Q4H PRN (Reason: shortness of breath or wheezing) candesartan 32 mg tablet 32 mg PO QAM diclofenac sodium 1 % gel 2 g TOPICAL TID PRN (Reason: pain) baclofen 5 mg tablet 5 mg PO BID PRN (Reason: muscle spasm) Jardiance 10 mg tablet 10 mg PO DAILY oxybutynin chloride 10 mg tablet extended release 24hr 10 mg PO DAILY nystatin 100,000 unit/gram powder 1 applic TOPICAL BID PRN (Reason: redness) olopatadine 0.2 % drops 1 drp OPHTHALMIC (EYE) Q24H PRN (Reason: dry eyes) Discontinued metoprolol tartrate 25 mg tablet 25 mg PO .QHS metoprolol tartrate [Lopressor] 50 mg tablet 50 mg PO QAM Print Language: Gibraltarian Picc Nurse/Crab Picker Instructions: Discharge back to [facility] Forms: Portal Instructions Follow Up Appointments: Call Dr. Dent's office to schedule a follow up appt fo r 5-7 days following discharge. [phone]
--- OUTSIDE RECORDS SUMMARY | 2024-04-28 07:41 | XMS_ITS | CCD ---
Author Organization [facility] Care Team Providers Care Oracle Ebs Architect Name Role Phone JR Eliud Echevarria Primary Care Provider MD Ana María Valiente Attending Provider Eliud Echevarria MD Primary Care Provider [phone] ALLEN DE LEON Attending Unavailable ALLEN DE [...] TAB PO Q6H March 03, 2019 5:56pm [id number] 200 actuat albuterol 0.09 mg/actuat metered dose [...] ML PO Daily March 03, 2019 5:56pm Kjscn-Ejegt-Vpzeb-Si berian Fir (Vicks Vapoinhaler) Inhaler (2 sources) Start: 03-03-2019 Vlozh-Zxjgu-Mexjh-S iberian Fir (Vicks Vapoinhaler) Inhaler Active 1 [...] RESISTANT TO ALL B-LACTAM DRUGS. PERFORMED BY: [place] [id number] PATHOLOGIST PRODUCT EVANGELIST MERVIN ADHIKARI M.D. Normal [facility] Comment on above: Performed By: #### CUSUP #### [address] Bacteria identified Aer cx N om (Unsp spec)Ordered By: Ana María Valiente on 08-21-2021 Superficial Wound Culture Staphylococcus aureus [facility] Superficial Wound Cultureon 08-21-2021 Superficial Wound [...] RESISTANT TO ALL B-LACTAM DRUGS. PERFORMED BY: [place] [address] PATHOLOGIST PRODUCT EVANGELIST MERVIN ADHIKARI M.D. [facility] Comment on above: Performed By: #### CUSUP #### [address] Na 02-09-2017 CNOV Office Visit (WHITNEY) --LAWSON SOLIMAN ([id number]) 1945 MDate Time Provider Dgkstruiiu72/27/17 JORDAN GARCIA (PA) During your visit today, we recorded the following information about you: Temperature Pulse Respiration Blood pressure 98.6 degrees 61/minute 18/minute 138/59Jordan Garcia PA-C 02/09/2017 2:24 PM AddendumPatient Name: Lawson CaballeroRN: [id number] For Visit: Alf Visit at [facility] for a follow up fordischarge visit.Past Medical [...] negativeFamily/Social History: Unchanged, see HANDamp;P.Medications: REVIEWED IN SENIOR LIVING CHARTObjective Data:BP 138/59 Pulse 61 Temp 37 [...] JORDAN GARCIA on 02/09/17 Normal [facility] PROGRESSon 02-09-2017 PROGRESS HNO ID: [id number] thor: Jordan Cowart) GrantService: (none)Author Type: Physician AssistantType: Progress NotesFiled: 02/09/2017 2:24 PMNote Text:Patient Name: Lawson RingyMRN: [id number] For Visit: Alf Visit at [facility] for a follow upfor discharge visit.Past Medical [...] negativeFamily/Social History: Unchanged, see HANDP.Medications: REVIEWED IN SENIOR LIVING CHARTObjective Data:BP 138/59 Pulse 61 Temp 37 [...] safety.Signature: JUHI Reinoso-CDate: February 09, 2017 Normal [facility] PROGRESSon 01-27-2017 PROGRESS HNO ID: [id number] thor: Giulia Caballeroice: (none)Author Type: PhysicianType: Progress NotesFiled: 01/30/2017 10:27 AMNote Text: [facility] NOTENAME: ZONIA SOLIMAN NO.: [id number] OF SERVICE: 01/27/2017[facility]DATE [facility] : 1945He is sitting up. He [...] current pravastatin therapy.DICTATED BY: JUAN Magallon/AcusisD:01/27/2017 JOB# [id number]:[facility] Jacksonvillelectronicsanta [facility] Signed by Giulia Hollis MD at 01/30/2017 10:19:29 Normal [facility] CNOVon 12-26-2016 CNOV Office Visit (WHITNEY) --HANSLAWSON Lieberman ([id number]) 1945 [facility] Time Provider Izjbazmygk62/13/17 JORDAN GARCIA (PA) During your visit today, we recorded the following information about you: Temperature Pulse Respiration Blood pressure 98.4 degrees 64/minute 18/minute 112/70Paulettla Garcia PA-C 12/26/2016 2:27 PM SignedPatient Name: Lawson Lieberman FinavyMRN: [id number] For Visit: Alf Visit at [facility] for a monthly visit.Past Medical Hx: No [...] negativeFamily/Social History: Unchanged, see HANDamp;P.Medications: REVIEWED IN SENIOR LIVING CHARTObjective Data:BP 112/70 Pulse 64 Temp 36.9 [...] FOR* Status:Closed by JORDAN GARCIA on 12/26/[address] [facility] PROGRESSon 12-26-2016 PROGRESS HNO ID: [id number] thor: Jordan Cowart) GrantService: (none)Author Type: Physician AssistantType: Progress NotesFiled: 12/26/2016 2:27 PMNote Text:Patient Name: Lawson DesirilvyMRN: [id number] For Visit: Alf Visit at [facility] for a monthlyvisit.Past Medical Hx: No past [...] negativeFamily/Social History: Unchanged, see HANDP.Medications: REVIEWED IN SENIOR LIVING CHARTObjective Data:BP 112/70 Pulse 64 Temp 36.9 [...] safety.Signature: JUHI Reinoso-CDate: December 26, 2016 Normal [facility] PROGRESSon 12-01-2016 PROGRESS HNO ID: [id number] thor: Giulia Caballeroice: (none)Author Type: PhysicianType: Progress NotesFiled: 12/02/2016 5:17 PMNote Text: [facility] NOTENAME: ZONIA SOLIMAN NO.: [id number] OF SERVICE: 12/01/2016[facility] : 1945He is resting in his [...] on pravastatin therapy.DICTATED BY: Giulia Hollis MDIAE/AcusisD:12/01/2016 [facility]# [id number]:Ady [facility] Hospitaltronicsanta [facility] Signed by Giulia Hollis MD at 12/02/2016 17:13:10 Normal [facility] PROGRESSon 11-01-2016 PROGRESS HNO ID: [id number] thor: Maggie Westfall ([facility]) Hubert: (none)Author Type: Nurse PractitionerType: Progress NotesFiled: 11/05/2016 12:57 PMNote Text: [facility] NOTENAME: ZONIA SOLIMAN NO.: [id number] OF SERVICE: 11/01/2016[facility] 1945Seen today after review of [...] can ambulate with assistance, but he needs [id number] to walk a few steps. He is [...] attend physical therapy.DICTATED BY: JANEY SKINNER/RickeysD:11/01/2016 JOB# [id number]:Anna [place] Normal [facility] CNOVon 10-30-2016 CNOV Office Visit (WHITNEY) --LAWSON SOLIMAN ([id number]) 1945 MDate Time Provider Department10/30/16 RUT DOMINGUEZ (KAY) WHITNEY During your visit today, we recorded the following information about you: Temperature Pulse Respiration Blood pressure 97.4 degrees 62/minute 18/minute 142/70 Weight 98.4 kgRut Dominguez CNP 10/30/2016 4:33 PM SignedPatient Name: Lawson Lieberman JhonathanyMRN: [id number] For Visit: Alf Visit at [facility] for a Acute for Left hip [...] see HANDamp;P.?Medications: see current medication list in [facility] chart, reviewed(Medications in [facility] may not accurate, please see update in [facility] chart)?Objective Data:BP 142/70 Pulse 62 [...] I69.3545. Essential hypertension - ICD9: 401.9, ICD10: [id number] () 1/2 tab bid + q6 prnCont' [...] DOMINGUEZ CNP on 10/30/16 Normal [facility] PROGRESSon 10-30-2016 PROGRESS HNO ID: [id number] thor: Rut (Kay) AngeloService: (none)Author Type: Nurse PractitionerType: Progress NotesFiled: 10/30/2016 4:33 PMNote Text:Patient Name: Lawson RingyMRN: [id number] For Visit: Alf Visit at [facility] for a Acute forL eft hip [...] see HANDP.?Medications: see current medication list in [facility] chart, reviewed(Medications in [facility] may not accurate, please see update in [facility] chart)?Objective Data:BP 142/70 Pulse 62 [...] I69.3545. Essential hypertension - ICD9: 401.9, ICD10: [id number] (5/325) 1/2 tab bid + q6 prnCont' current meds regimenLab: ua+ c/sLS spine AND hip xrayPT consultObserve condition AND behaviorDiscuss plan of care w R AND staffI'll make no further changes at this time. We will continue to monitor foroverall comfort, function and safety.Signature: Rut Dominguez CNPDate: October 30, 2016 Normal [facility] PROGRESSon 10-02-2016 PROGRESS HNO ID: [id number] thor: Arjuni Yessenia ErenService: (none)Author Type: PhysicianType: Progress NotesFiled: 10/03/2016 5:28 PMNote Text: [facility] NOTENAME: LAWSON SOLIMANREGINA NO.: [id number] OF SERVICE: 10/02/2016Ady Aguilera is up and [...] pravastatin therapy.DICTATED BY: Giulia Hollis MDIAE/AcusisD:10/02/2016 JOB# [id number]:Ady [facility] Oaklandlectronicsanta [facility] Signed by Giulia Hollis MD at 10/03/2016 17:10:48 Normal [facility] Encounters Encounter Date Encounter Type Care Provider Facility Start: 04-11-2024 End: 04-11-2024 Charlie madridheet Allen De Leon MD Work Phone: [facility] Start: 04-11-2024 End: 04-11-2024 Charlie De Leon MD Work Phone: [facility] Start: 04-11-2024 End: 04-11-2024 ambulatory ALLEN DE LEON Not Available Start: 04-13-2023 End: 04-13-2023 ambulatory ALLEN DE LEON Not Available Start: 08-28-2021 End: 08-28-2021 Departed Referred JR Eliud Echevarria Work Phone: [facility] Start: 08-21-2021 End: 08-21-2021 Departed Referred JR Eliud Echevarria Work Phone: [facility] Procedures Date Procedure Procedure Detail Performing Clinician Start: 04-11-2024 End: 04-11-2024 [facility] medical xm&eval comprhnsv estab pt 1/> Type [...] [facility] [address] [place] [id number] Allen De Leon MD [address] [place] [address] Arrived [facility] Comment on above: Arrived Start: 08-28-2021 Superficial Wound Culture Superficial Wound Culture [facility] Start: 08-21-2021 Superficial Wound Culture Superficial Wound Culture [facility] Bacteria identified in Unspecified specimen by Aerobe culture [facility] Work Phone: Payers Date Payer Category Payer Medicaid MEDICAID [facility] [id number] 2017 Medicaid [id number] 2012 Medicare MEDICARE [id number] 2012 Medicare [id number] 1945 Unknown [id number] 1945 Unknown [id number] Medicaid [facility] [id number] Medicare Medicare [id number] Self-pay Self Pay [id number] Social History Date Type Detail Facility Start: 03-08-2019 End: 04-13-2023 Tobacco smoking status NHIS Never smoked tobacco (finding) [facility] Start: 1945 Sex Assigned At Male F [facility] Start: 04-13-2023 Tobacco use and exposure Smokeless tobacco non-user [facility] Start: 04-13-2023 History of Social function [facility] Start: 04-13-2023 Tobacco use panel [facility] Start: 1945 Sex assigned at Not [...] Evaluation note No assessment information availa ble [facility] Work Phone: Evaluation note Note Date & Type Note Facility Evaluation note Diagnosis Type 2 diabetes mellitus without complication, without long-term current use of insulin ([facility] 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 [...] section and content) DATE CREATED AUTHOR 09/08/2017 [facility] DATE CREATED AUTHOR AUTHOR'S ORGANIZ ATION 09/10/2021 [facility] DATE CREATED AUTHOR AUTHOR'S ORGANIZ ATION 04/11/2024 [facility] d[facility] EPIC Care Teams (unrecognized sec tion and content) Team Status: Inactive Member Role Status Dates Eliud Echevarria JR DO Primary Care Provider Active Ana María Valiente MD Attending Provider Active Team Status: Active Member Role Status Dates Eliud Echevarria JR DO Primary Care Provider Active Oracle Ebs Architect Relationship Specialty Start Date End Date Eliud Echevarria MD [facility] [place] [address] PCP - General Internal Medicine 04/13/23 Oracle Ebs Architect Relationship Specialty Start Date End Date Eliud Echevarria MD [facility] [place] [address] PCP - General Internal Medicine 04/13/23 Goals [...] BE BASED ON THE PRIMARY CLINICAL RECORDS. [facility]. provides no warranty or guarantee of the accuracy or completeness of information in this document.
[2024-04-28] MEDS: CHOLECALCIFEROL (VITAMIN D3) 25 MCG/1,000 UNITS TABLET 50 MCG PO (09:18)
[2024-04-28] MEDS: METOPROLOL TARTRATE 50 MG TABLET PO (09:19)
[2024-04-28] MEDS: LOSARTAN POTASSIUM 50 MG TABLET 100 MG PO (09:19)
[2024-04-28] MEDS: CANAGLIFLOZIN 100 MG TABLET PO (09:19)
[2024-04-28] MEDS: TAMSULOSIN HCL 0.4 MG CAPSULE PO (09:19)
[2024-04-28] MEDS: POTASSIUM CHLORIDE 10 MEQ ER TABLET 20 MEQ PO (09:19)
[2024-04-28] MEDS: ACETAMINOPHEN 500 MG TABLET 1000 MG PO (09:19)
[2024-04-28] MEDS: DULOXETINE HCL 60 MG CAPSULE.DR PO (09:19)
[2024-04-28] MEDS: EZETIMIBE 10 MG TABLET PO (09:19)
[2024-04-28] MEDS: ASPIRIN 81 MG TAB.CHEW PO (09:19)
[2024-04-28] MEDS: OXYBUTYNIN CHLORIDE 5 MG TAB XL 10 MG PO (09:19)
[2024-04-28] MEDS: APIXABAN 5 MG TABLET PO (09:20)
[2024-04-28 09:25] VITALS: BP 136/84; PULSE 66; TEMP 36.8; O2SAT 94
--- NOTE | 2024-04-28 09:27 | CM.NOTE ---
Rounds made with Dr. Dang, pt will discharge to home this afternoon. Pt is from [facility] and plans to return. Dr. Dang discussed with pt about PT, pt is wheelchair bound d/t past CVA. Pt only transfers self to and from wheelchair.
--- NOTE | 2024-04-28 09:39 | SWNOTE1 ---
Pt is from [facility]. Pt can be discharged back to [place] today. SW checking to see if they have transport available.
--- NOTE | 2024-04-28 10:04 | CM.NOTE ---
Important Message From Medicare discussed with pt, pt verbalizes understanding and signs paper. Original given to pt and copy placed in pt's chart.
--- NOTE | 2024-04-28 10:05 | CM.NOTE ---
Discussed with pt about PT recommendations for HH services, pt refuses any HH services at this time. Pt states they have all kinds of therapy over at [facility], explained to pt we would set it up through [facility]. Pt still refuses any HH services at this time.
[2024-04-28 11:28] VITALS: O2SAT 96
--- NOTE | 2024-04-28 11:28 | SWNOTE1 ---
RAISA heard back from Nanette at [facility] and they are able to pick him up at 2:00pm. RAISA notified nurse. Case management did go back and speak with pt about HH services, but at this time pt does not want any therapy set up and he will let Sav Bonner know if he wants therapy. RAISA faxed over physician notes, therapy notes, labs, diagnostic imaging, and dc med rec to Nanette and and Dalia from [facility] and [facility].
[2024-04-28 13:25] VITALS: BP 155/95; PULSE 76; TEMP 36.6; O2SAT 95
--- NOTE | 2024-04-28 15:07 | CM.DCFOLLOWU ---
Returned to [facility]
== END 2024-04-28 14:15 | disposition home or self-care (01) | DRG 305 ==
LOC: ER 18:05 → MS 04-28 07:39
PROVIDERS: Physician Assistant; Admitting Provider Family Medicine; Emergency Provider Emergency Medicine; PCP Internal Medicine; Visit Provider Family Medicine
DX: I16.0 Hypertensive urgency (principal); E87.20 Acidosis, unspecified; I69.354 Hemiplegia and hemiparesis following cerebral infarction affecting left non-dominant side; R41.82 Altered mental status, unspecified; I10 Essential (primary) hypertension; I48.91 Unspecified atrial fibrillation; F32.A Depression, unspecified; E11.9 Type 2 diabetes mellitus without complications; N32.89 Other specified disorders of bladder; F41.9 Anxiety disorder, unspecified; N40.0 Benign prostatic hyperplasia without lower urinary tract symptoms; Z79.82 Long term (current) use of aspirin; Z79.85 Long-term (current) use of injectable non-insulin antidiabetic drugs; Z79.899 Other long term (current) drug therapy; Z79.84 Long term (current) use of oral hypoglycemic drugs; E78.5 Hyperlipidemia, unspecified; I25.10 Atherosclerotic heart disease of native coronary artery without angina pectoris; R06.03 Acute respiratory distress; R51.9 Headache, unspecified
CPT/HCPCS: 36415; 70450; 71045; 80048; 80053; 81001; 83605; 83880; 84443; 84484; 85025; 85610; 93005; 94761; 96374; 96375; 97165; 97535; 99285; J1920

== ENCOUNTER 2025-01-19 23:02 | Emergency (ER) | payer MEDICARE, MEDICAID, SELFPAY ==
--- OUTSIDE RECORDS SUMMARY | 2023-08-19 09:15 | XMS_ITS ---
Author Organization [facility] Address [address] [place] [address] [place] [address] Care Team Providers Care [employer] Name Role Phone Eliud Echevarria DO Primary Care Provider Unavail Sridhar Bradford Unavailable [phone] Encounters Encounter Location Date Provider Diagnosis [address] [address] 08/19/2023 Sridhar Zelaya Plan Of Treatment No Information Progress Notes * Sree SOLIMANDOB: (79 yo M)Acc No.[id number]:08/19/2023 Patient:?Sree SOLIMAN :?RASHEL PeraltaMDOB:1945???Age:78 Y???Sex: MaleDate:08/19/2023hone:[phone]:[address] [place] [address]Wan:Eliud Echevarria DO Subjective: * Chief Complaints: * * Medical History: Objective: * Vitals: Assessment: Plan: * Treatment: * Images: * Electronic signature of Sridhar Zelaya DPM on 01/19/2025 at 11:57 PM ESTSign off status: Pending * Provider: Malou Zelaya DPM Date: 0 08/19/2023 Generated for Printing/Faxing/eTransmitting on:?01/19/2025 11:57 PM EST
--- OUTSIDE RECORDS SUMMARY | 2023-11-25 09:45 | XMS_ITS ---
Author Organization [facility] Address [address] [place] [address] [place] [address] Care Team Providers Care Thermit Welding Machine Operator Name Role Phone Eliud Echevarria DO Primary Care Provider Unavail Sridhar Bradford Unavailable [phone] Encounters Encounter Location Date Provider Diagnosis [address] [address] 11/25/2023 Sridhar Zelaya Plan Of Treatment No Information Progress Notes * Sree SOLIMANDOB: (79 yo M)Acc No.[id number]:11/25/2023 Patient:?Sree SOLIMAN :?RASHEL PeraltaMDOB:1945???Age:78 Y???Sex: MaleDate:11/25/2023hone:[phone]:[address] [place] [address]Xcj:Eluid Echevarria DO Subjective: * Chief Complaints: * * Medical History: Objective: * Vitals: Assessment: Plan: * Treatment: * Images: * Electronic signature of Sridhar Zelaya DPM on 01/19/2025 at 11:58 PM ESTSign off status: Pending * Provider: Malou Zelaya DPM Date: 0 11/25/2023 Generated for Printing/Faxing/eTransmitting on:?01/19/2025 11:58 PM EST
--- OUTSIDE RECORDS SUMMARY | 2024-02-17 11:15 | XMS_ITS ---
Author Organization [facility] Address [address] [place] [address] [place] [address] Care Team Providers Care Certified Endoscopy Technician Name Role Phone Eliud Echevarria DO Primary Care Provider Unavail Sridhar Bradford Unavailable [phone] Encounters Encounter Location Date Provider Diagnosis [address] [address] 02/17/2024 Sridhar Zelaya Plan Of Treatment No Information Progress Notes * Sree SOLIMANDOB: 7 (79 yo M)Acc No.[id number]:02/17/2024 Patient:?Sree SOLIMAN :?RASHEL PeraltaMDOB:1945???Age:78 Y???Sex: MaleDate:02/17/2024hone:[phone]:[address] [place] [address]Nqw:Eliud Echevarria DO Subjective: * Chief Complaints: * * Medical History: Objective: * Vitals: Assessment: Plan: * Treatment: * Images: * Electronic signature of Sridhar Zelaya DPM on 01/19/2025 at 11:57 PM ESTSign off status: Pending * Provider: Malou Zelaya DPM Date: 1 04/19/2023 Generated for Printing/Faxing/eTransmitting on:?01/19/2025 11:57 PM EST
--- OUTSIDE RECORDS SUMMARY | 2024-05-18 11:15 | XMS_ITS ---
Author Organization [facility] Address [address] [place] [address] [place] [address] Care Team Providers Care Senior Design Engineering Specialist Name Role Phone Eliud Echevarria DO Primary Care Provider Unavail Srdihar Bradford Unavailable [phone] Encounters Encounter Location Date Provider Diagnosis [address] [address] 05/18/2024 Sridhar Zelaya Plan Of Treatment No Information Progress Notes * Sree SOLIMANDOB: (79 yo M)Acc No.[id number]:05/18/2024 Patient:?Sree SOLIMAN :?RASHEL PeraltaMDOB:1945???Age:79 Y???Sex: MaleDate:05/18/2024Phone:[phone]:[address] [place] [address]Iks:Eliud Echevarria DO Subjective: * Chief Complaints: * * Medical History: Objective: * Vitals: Assessment: Plan: * Treatment: * Images: * Electronic signature of Sridhar Zelaya DPM on 01/19/2025 at 11:58 PM ESTSign off status: Pending * Provider: Malou Zelaya DPM Date: 0 05/18/2024 Generated for Printing/Faxing/eTransmitting on:?01/19/2025 11:58 PM EST
--- OUTSIDE RECORDS SUMMARY | 2024-08-17 10:00 | XMS_ITS ---
Author Organization [facility] Address [address] [place] [address] [place] [address] Care Team Providers Care Paper Tube Cutter Name Role Phone Eliud Echevarria DO Primary Care Provider Unavail Sridhar Bradford Unavailable [phone] Encounters Encounter Location Date Provider Diagnosis [address] [address] 08/17/2024 Sridhar Zelaya Plan Of Treatment No Information Progress Notes * Sree SOLIMANDOB: (79 yo M)Acc No.[id number]:08/17/2024 Patient:?Sree SOLIMAN :?RASHEL PeraltaMDOB:1945???Age:79 Y???Sex: MaleDate:08/17/2024Phone:[phone]:[address] [place] [address]Qas:Eliud Echevarria DO Subjective: * Chief Complaints: * * Medical History: Objective: * Vitals: Assessment: Plan: * Treatment: * Images: * Electronic signature of Sridhar Zelaya DPM on 01/19/2025 at 11:58 PM ESTSign off status: Pending * Provider: Malou Zelaya DPM Date: 0 08/17/2024 Generated for Printing/Faxing/eTransmitting on:?01/19/2025 11:58 PM EST
--- OUTSIDE RECORDS SUMMARY | 2024-11-16 09:45 | XMS_ITS ---
Author Organization [facility] Address [address] [place] [address] [place] [address] Care Team Providers Care Mfg Assoc Name Role Phone Eliud Echevarria DO Primary Care Provider Unavail Sridhar Bradford Unavailable [phone] Encounters Encounter Location Date Provider Diagnosis [address] [address] 11/16/2024 Sridhar Zelaya Plan Of Treatment No Information Progress Notes * Sree SOLIMANDOB: (79 yo M)Acc No.[id number]:11/16/2024 Patient:?Sree SOLIMAN :?RASHEL PeraltaMDOB:1945???Age:79 Y???Sex: MaleDate:11/16/2024Phone:[phone]:[address] [place] [address]Qis:Eliud Echevarria DO Subjective: * Chief Complaints: * * Medical History: Objective: * Vitals: Assessment: Plan: * Treatment: * Images: * Electronic signature of Sridhar Zelaya DPM on 01/19/2025 at 11:57 PM ESTSign off status: Pending * Provider: Malou Zelaya DPM Date: 0 11/16/2024 Generated for Printing/Faxing/eTransmitting on:?01/19/2025 11:57 PM EST
[2025-01-19 23:03] VITALS: BP 159/100; PULSE 75; TEMP 36.7; O2SAT 98; BMI 23.1
--- NOTE | 2025-01-19 23:25 | ED.GIBLEED1 ---
HPI - GI Bleed General Chief complaint: GI Bleed Stated complaint: GI BLEED Time Seen by Provider: 01/19/25 23:24 Source: patient Mode of arrival: ambulance Limitations: no limitations History of Present Illness HPI Narrative: This 79-year-old male with a history of a stroke and heart disease who is on blood thinners is brought to the emergency department from the assisted living facility where he currently resides for evaluation of bright red blood after trying to have a bowel movement earlier this evening. The patient denies any abdominal pain. He states he was trying to have a bowel movement but did not have a bowel movement and instead there was bright red blood in the toilet. He does not have any dizziness or shortness of breath. He thinks he may have hemorrhoids. He also complains that he has had urinary incontinence recently. He has not had any fever. He denies any additional complaints. Related Data Home Medications ?Medication ?Instructions ?Recorded ?Confirmed acetaminophen 500 mg tablet 1,000 mg PO BID 08/20/23 04/27/24 apixaban 5 mg tablet (Eliquis) 5 mg PO Q12H 08/20/23 04/27/24 aspirin 81 mg chewable tablet 81 mg PO DAILY 08/20/23 04/27/24 cholecalciferol (vitamin D3) 50 50 mcg PO DAILY 08/20/23 04/27/24 mcg (2,000 unit) tablet dulaglutide 3 mg/0.5 mL 3 mg subcut .08/20/23 04/27/24 subcutaneous pen injector (Trulicity) duloxetine 60 mg capsule,delayed 60 mg PO DAILY 08/20/23 04/27/24 release dutasteride 0.5 mg capsule 0.5 mg PO DAILY 08/20/23 04/27/24 empagliflozin 10 mg tablet 10 mg PO DAILY 08/20/23 04/27/24 (Jardiance) ezetimibe 10 mg tablet 10 mg PO DAILY 08/20/23 04/27/24 famotidine 40 mg tablet 40 mg PO BEDTIME 08/20/23 04/27/24 mirabegron 50 mg tablet,extended 50 mg PO DAILY 08/20/23 04/27/24 release 24 hr (Myrbetriq) ondansetron HCl 4 mg tablet 4 mg PO Q6H PRN nausea and vomiting 08/20/23 04/27/24 potassium chloride 20 mEq 20 meq PO DAILY 08/20/23 04/27/24 tablet,extended release(part/cryst) quetiapine 50 mg tablet 50 mg PO BEDTIME 08/20/23 04/27/24 rosuvastatin 20 mg tablet 20 mg PO BEDTIME 08/20/23 04/27/24 tamsulosin 0.4 mg capsule 0.4 mg PO BID 08/20/23 04/27/24 trazodone 50 mg tablet 25 mg PO BEDTIME 08/20/23 04/27/24 acarbose 100 mg tablet 100 mg PO TID 04/27/24 04/27/24 acetaminophen 325 mg tablet 650 mg PO Q4H PRN fever or pain 04/27/24 04/27/24 albuterol sulfate 90 mcg/actuation 1 puff inhalation Q4H PRN 04/27/24 04/27/24 aerosol inhaler shortness of breath or wheezing baclofen 5 mg tablet 5 mg PO BID PRN muscle spasm 04/27/24 04/27/24 candesartan 32 mg tablet 32 mg PO QAM 04/27/24 04/27/24 diclofenac sodium 1 % topical gel 2 g topical TID PRN pain 04/27/24 04/27/24 empagliflozin 10 mg tablet 10 mg PO DAILY 04/27/24 04/27/24 (Jardiance) nystatin 100,000 unit/gram topical 1 applic topical BID PRN redness 04/27/24 04/27/24 powder olopatadine 0.2 % eye drops 1 drp ophthalmic (eye) Q24H PRN 04/27/24 04/27/24 dry eyes oxybutynin chloride 10 mg 10 mg PO DAILY 04/27/24 04/27/24 tablet,extended release 24 hr Previous Rx's ?Medication ?Instructions ?Recorded metoprolol tartrate 50 mg tablet 50 mg PO BID #60 tabs 04/28/24 Allergies Allergy/AdvReac Type Severity Reaction Status Date / Time No Known Drug Allergies Allergy Verified 01/19/25 23:06 Review of Systems ROS Status of ROS 10 or more systems reviewed and unremarkable except as noted in history and below [facility] Medical History (Updated 01/20/25 @ 00:09 by Evelin Abel MD) Altered mental status ?R41.82 - Altered mental status, unspecified (ICD-10) Hypertension ?I10 - Essential (primary) hypertension (ICD-10) Hemiparesis affecting left side as late effect of cerebrovascular accident ?I69.354 - Hemiplegia and hemiparesis following cerebral infarction affecting left non-dominant side (ICD-10) H/O: CVA (cerebrovascular accident) ?Z86.73 - Personal history of transient ischemic attack (TIA), and cerebral infarction without residual deficits (ICD-10) Urine retention ?R33.9 - Retention of urine, unspecified (ICD-10) Anxiety ?F41.9 - Anxiety disorder, unspecified (ICD-10) Hyperlipidemia ?E78.5 - Hyperlipidemia, unspecified (ICD-10) Hypertension ?I10 - Essential (primary) hypertension (ICD-10) Diabetes ?E11.9 - Type 2 diabetes mellitus without complications (ICD-10) Coronary artery disease ?I25.10 - Atherosclerotic heart disease of [place] coronary artery without angina pectoris (ICD-10) BPH (benign prostatic hyperplasia) ?N40.0 - Benign prostatic hyperplasia without lower urinary tract symptoms (ICD-10) A-fib ?I48.91 - Unspecified atrial fibrillation (ICD-10) Right-sided cerebrovascular accident (CVA) ?I63.9 - Cerebral infarction, unspecified (ICD-10) Social History Within the past year, how often did you have a drink containing alcohol: never Score interpretation: A score less than 4 is consistent with normal alcohol consumption. Smoking status: Never smoker Non-prescribed substance use: denies use Previous occupational history: retired Highest level of school completed/degree received: high school graduate Little interest or pleasure in doing things: not at all Feeling down, depressed, or hopeless: not at all Exam Narrative Exam Narrative: Vital signs and Nursing Notes reviewed: Patient is afebrile with normal pulse, blood pressure is elevated 159/100, he is not hypoxic with pulse ox of 98% on room air General: Awake, alert, oriented, no acute distress, lying comfortably on the stretcher HEENT: Normocephalic atraumatic, mucous membranes are moist and pink, eyes are clear, normal conjunctiva, vision is grossly intact Chest: Lungs are clear to auscultation with good air entry, there is no wheezing rhonchi or rales appreciated no accessory muscle use, patient is speaking in complete sentences CVS: Regular rate and rhythm S1-S2, no murmurs rubs or gallops, pulses are brisk and equal bilaterally ABD: Soft, nondistended, nontender, no rebound guarding or rigidity, bowel sounds are normal, no pulsatile masses appreciated, rectal exam performed with RN event promotions coordinator- there is an approx 1cm, non thrombosed external hemorrhoid with a small amount of dried blood on the hemorrhoid- there is a small tear on the surface of the hemorrhoid. Rectal exam is otherwise normal with soft brown stool in the rectum and no internal masses or hemorrhoids appreciated Extremities:Contracture of left hand s/p CVA otherwise normal neuro exam Skin: Normal in appearance without rash,pallor, petechiae or purpura Neuro: No focal deficits Constitutional Vital Signs, click to edit/add: Last Vital Signs Temp 98.1 F 01/19/25 23:03 Pulse 75 01/19/25 23:03 Resp 18 01/19/25 23:03 BP 159/100 H 01/19/25 23:03 Pulse Ox 98 01/19/25 23:03 O2 Del Method Room Air 01/19/25 23:03 Course Vital Signs Vital signs: Vital Signs Temperature 98.1 F 01/19/25 23:03 Pulse Rate 75 01/19/25 23:03 Respiratory Rate 18 01/19/25 23:03 Blood Pressure 159/100 H 01/19/25 23:03 Pulse Oximetry 98 01/19/25 23:03 Oxygen Delivery Method Room Air 01/19/25 23:03 Temperature 98.1 F 01/19/25 23:03 Pulse Rate 75 01/19/25 23:03 Respiratory Rate 18 01/19/25 23:03 Blood Pressure 159/100 H 01/19/25 23:03 Pulse Oximetry 98 01/19/25 23:03 Oxygen Delivery Method Room Air 01/19/25 23:03 MDM - GI Bleed MDM Narrative Medical decision making narrative: 79-year-old male was brought to emergency department by EMS from his assisted living facility for evaluation of an episode of bright red blood after trying to have a bowel movement earlier this evening. He is not having any abdominal pain. He has a nonthrombosed sternal hemorrhoid with a small amount of dried blood on it. There appears to be a small tear overlying the hemorrhoid. It is not actively bleeding. There is no arterial bleeding. His rectal exam is otherwise normal with soft brown stool. He did complain of urinary incontinence over the course of the last 2 weeks and a urine was ordered to rule out UTI. He is otherwise at his neurologic baseline. He has had a stroke in the past but states that he was outside during the day raking leaves. He is alert, well-appearing. I did not think that labs and imaging was indicated as the etiology of his bleeding appeared to be the small external hemorrhoid. Urinalysis was ordered however and did for infection but positive for glucose, Accu-Chek was 150. He will be discharged home with a prescription for Dibucaine ointment to apply to the affected area 3-4 times a day and Tucks pads that can also be used topically and placed in the rectal area and left there for comfort and to allow for healing of the hemorrhoidal tear. Patient is in agreement with this plan. Lab Data Labs: Lab Results 01/19/25 01/20/25 Range/Units 23:57 00:23 Urine Color Lt. yellow (YELLOW) Urine Clarity Clear (CLEAR) Urine pH 5.5 (5.0-9.0) Ur Specific [place] <=1.005 A (1.005-1.025) Urine Protein Negative (NEG/TRACE) mg/dL Urine Glucose (UA) >=1000 A (NEGATIVE) mg/dL Urine Ketones Negative (NEGATIVE) mg/dL Urine Occult Blood Small A (NEGATIVE) Urine Nitrite Negative (NEGATIVE) Urine Bilirubin Negative (NEGATIVE) Urine Urobilinogen 0.2 (0.2-1.0) EU/dL Ur Leukocyte Esterase Negative (NEGATIVE) Urine RBC 0-2 (0-2) #/HPF Urine WBC 0-2 A (NONE SEEN) #/HPF Ur Squamous Epith Cells None seen (NONE/RARE) #/LPF Urine Crystals None seen (None Seen) #/HPF Urine Bacteria Trace A (NONE SEEN) #/HPF Urine Casts None seen (NONE SEEN) #/LPF Urine Mucus None seen (NONE SEEN) Ur Culture Indicated? No POC Glucose 150 H (74-106) mg/dL Discharge Plan Discharge Chief Complaint: GI Bleed Clinical Impression: Hematochezia, Bleeding external hemorrhoids Patient Disposition: Home, Self-Care Time of Disposition Decision: 00:30 Condition: Good Prescriptions / Home Meds: No Action famotidine 40 mg tablet 40 mg PO BEDTIME potassium chloride 20 mEq tablet,ER particles/crystals 20 meq PO DAILY aspirin 81 mg tablet,chewable 81 mg PO DAILY ezetimibe 10 mg tablet 10 mg PO DAILY dutasteride 0.5 mg capsule 0.5 mg PO DAILY duloxetine 60 mg capsule,delayed release(DR/EC) 60 mg PO DAILY quetiapine 50 mg tablet 50 mg PO BEDTIME trazodone 50 mg tablet 25 mg PO BEDTIME ondansetron HCl 4 mg tablet 4 mg PO Q6H PRN (Reason: nausea and vomiting) tamsulosin 0.4 mg capsule 0.4 mg PO BID rosuvastatin 20 mg tablet 20 mg PO BEDTIME cholecalciferol (vitamin D3) 50 mcg (2,000 unit) tablet 50 mcg PO DAILY mirabegron [Myrbetriq] 50 mg tablet extended release 24 hr 50 mg PO DAILY Eliquis 5 mg tablet 5 mg PO Q12H Jardiance 10 mg tablet 10 mg PO DAILY Trulicity 3 mg/0.5 mL pen injector 3 mg SUBCUT . acetaminophen 500 mg tablet 1,000 mg PO BID acarbose 100 mg tablet 100 mg PO TID acetaminophen 325 mg tablet 650 mg PO Q4H PRN (Reason: fever or pain) albuterol sulfate 90 mcg/actuation HFA aerosol inhaler 1 puff INHALATION Q4H PRN (Reason: shortness of breath or wheezing) candesartan 32 mg tablet 32 mg PO QAM diclofenac sodium 1 % gel 2 g TOPICAL TID PRN (Reason: pain) baclofen 5 mg tablet 5 mg PO BID PRN (Reason: muscle spasm) Jardiance 10 mg tablet 10 mg PO DAILY oxybutynin chloride 10 mg tablet extended release 24hr 10 mg PO DAILY nystatin 100,000 unit/gram powder 1 applic TOPICAL BID PRN (Reason: redness) olopatadine 0.2 % drops 1 drp OPHTHALMIC (EYE) Q24H PRN (Reason: dry eyes) metoprolol tartrate 50 mg Tablet 50 mg PO BID Qty: 60 0RF Print Language: Amharic Instructions: Dibucaine (On the skin) (Nupercainal), Hemorrhoids (ED), Rectal Bleeding (ED) Referrals: BOB DENT DO [Primary Care Provider, Family Practice] - 1 week
--- OUTSIDE RECORDS SUMMARY | 2025-01-19 23:57 | XMS_ITS | Patient Health Record ---
Author Organization [facility] Address [address] [place] [address] [place] [address] Care Team Providers Care Contract Agent Name Role Phone Eliud Echevarria DO Primary Care Provider Sridhar Fernandez Unavailable [phone] Reason For Referral No Information Encounters Encounter Location Date Provider Diagnosis [facility] [address] [place] [address] 02/17/2024 Sridhar Zelaya [facility] [address] [place] [address]/07/2024 [facility] [address] [place], [facility]/06/2024[facility] [address] [place] [address]/05/2024Sridhar Zelaya Plan Of Treatment No Information Insurance Providers Payer Name Payer Address Payer Phone Subscriber Number Group Number Insured Name Patient Relationship to Insured Coverage Start Date Coverage End Date Medicare Part B J-15 Part [facility] Claims [address] [place] [address] [id number], WilliamSelf - patient is the insuredBl[facility] Dpt of Job Fmly [address] [place], [place] [id number], WilliamSelf - patient is the insured
--- OUTSIDE RECORDS SUMMARY | 2025-01-19 23:57 | XMS_ITS | Clinical Summary ---
Author Organization [facility] Address [address] [place] [address] Care Team Providers Care Senior Corporate Strategy Manager Name Role Phone Eliud Echevarria MD Primary Care Provider [phone] Allergies No known active allergies Medications MedicationSigDispense QuantityRefillsLast FilledStart DateEnd DateStatus Acetaminophen Extra Strength 500 MG tablet 04/09/2023ctive Aspirin Low Dose 81 MG chewable tablet 03/31/2023ctive cholecalciferol (Vitamin D-3) 50 MCG (1999) tablet 03/24/2023ctive Trulicity 3 MG/0.5ML solution pen-injector 04/09/2023ctive ezetimibe (Zetia) 10 MG tablet 04/04/2023ctive famotidine (Pepcid) 40 MG tablet 04/02/2023ctive losartan (Cozaar) 25 MG tablet 03/11/2023ctive metoprolol tartrate (Lopressor) 25 MG tablet 03/24/2023ctive Myrbetriq 50 MG 24 hr tablet 03/24/2023ctive olopatadine (Pataday) 0.2 % ophthalmic solution 03/29/2023ctive QUEtiapine (SEROquel) 50 MG tablet 04/04/2023ctive potassium chloride CR (Klor-Con M20) 20 MEQ ER tablet 03/24/2023ctive traZODone (Desyrel) 50 MG tablet 04/05/2023ctive acarbose (Precose) 100 MG tablet 04/01/2024tive albuterol HFA 90 mcg/act inhaler 06/13/2023ctive Eliquis 5 MG tablet as directed OrallyActive baclofen (Lioresal) 5 MG tablet 10/13/2023ctive candesartan (Atacand) 32 MG tablet 03/11/2024ctive Jardiance 10 MG 1 tablet OrallyActive oxybutynin XL (Ditropan-XL) 10 MG 24 hr tablet 5Active tamsulosin (Flomax) 0.4 MG 24 hr capsule 1 capsuleActive Social History Tobacco UseTypesPacks/DayYears UsedDateSmoking Tobacco: NeverSmokeless Tobacco: Never Tobacco Cessation:Counseling Given: Not Answered Sex and Gender InformationValueDate RecordedSex Assigned at BirthNot on file Legal HbrXrna1207/14/2022 8:34 PM EDTGender IdentityNot on fileSexual Orientation Not on file Last Filed Vital Signs Vital SignReadingTime TakenCommentsBlood Agbdwkpj053/80105/04/2018 12:00 PM EST Pulse--Temperature--Respiratory Rate--Oxygen Saturation--Inhaled Oxygen Concentration--Iwussi12.5 kg (215 lb)03/03/2019 12:00 PM PXKApjmda312.9 cm (6') 03/03/2019 12:00 PM ESTBody Mass Index29.16105/04/2018 12:00 PM EST Plan of Treatment Not on file Insurance * Guarantor: Sree Soliman TypeRelation to PatientDate of BirthPhone Billing AddressPersonal/XxtknvJlen1945 [facility] [address] [place] [address] Care Teams Team MemberRelationshipSpecialtyStart DateEnd Eliud Echevarria MD [address] [place] [address] PCP - GeneralInternal Medicine04/13/23
--- OUTSIDE RECORDS SUMMARY | 2025-01-19 23:58 | XMS_ITS | Patient Health Record ---
Author Organization [facility] [place] Address [address] [place] [address] Care Team Providers Care Hvac Mechanic Name Role Phone Eliud Echevarria DO Primary Care Provider Unavail Yusuf Hardwick Unavailable [phone] Allergies No Known Allergies Results Component Value Reference Range Notes PROF CHEM 8 (BAS METB) Reviewed date:04/28/2024 08:03:41 PM Interpretation: Performing Lab: Notes/Report: [facility] , Sodium 143 136-145 mmol/L Potassium3.63.5-5.1 mmol/FOoblfrnu90343-304 mmol/LCarbon Qbewgqn59.121.0-32.0 mmol/LAnion Gap11.3Pfjkthw18019-801 mg/dLBlood Urea Wzdkdtfr80.07.0-18.0 mg/dL Creatinine0.970.70-1.30 mg/dLEstimated GFR ( Zeny>60>=60 mL/min/1.73m 2Estimated GFR (Non- Julia>60>=60 mL/min/1.73m 2BUN Creatinine Ratio11.3 Calcium8.98.5-10.1 mg/dLPerforming Lab:see noteML - [facility] LBCBC AUTO DIFF Reviewed date:04/28/2024 08:03:41 PM Interpretation: Performing Lab: Notes/Report: [facility] ,White Blood Count5.14.0-11.0 10 3/uLRed Blood Count4.584.70-6.10 10 6/uL Sklyqjersg21.514.0-18.0 g/nBEhxwmrolog20.042.0-54.0 %Mean Corpuscular Ocjksh90.9 80.0-94.0 fLMean Corpuscular Bkyebdvyvw60.725.9-34.0 pgMean Corpuscular HGB Conc 33.729.9-35.2 g/dLRed Cell Distribution Width13.011.0-15.0 %Platelet Qibiu201 150-450 10 3/uLMean Platelet Volume8.69.5-13.5 fLNeutrophils Percent Auto55.7 43.0-75.0 %Lymphocytes Percent Auto27.420.5-60.0 %Monocytes Percent Auto11.41.7- 12.0 %Eosinophils Percent Auto4.10.9-7.0 %Basophils Percent Auto1.20.2-2.0 % Immature Granulocytes Pct Auto0.20.0-0.5 %Neutrophils Absolute Auto2.81.4-6.5 10 3/uLLymphocytes Absolute Auto1.41.2-3.8 10 3/uLMonocytes Absolute Auto0.60.3-0.8 10 3/uLEosinophils Absolute Auto0.20.0-0.7 10 3/uLBasophils Absolute Auto0.10.0- 0.1 10 3/uLImmature Granulocytes Abs Auto0.010.00-0.03 10 3/uLPerforming Lab:see noteML - [facility] Reason For Referral No Information Medications Medication SIG (Take, Route, Frequency, Duration) Notes Start Date End Date Status Famotidine ActiveEzetimibeActiveEliquisActiveLosartan PotassiumNot-TakingDutasterideActive Diclofenac Sodium 1.6 %as directed ExternallyNot-TakingDULoxetine HClActive Vitamin F5QfmuulWnqdjwjpFapuppPngao VaporubActiveCandesartan CilexetilActive TrulicityActiveBaclofenActivetraZODone HClActiveAspirin 81ActiveTamsulosin HCl 0.4 MG1 capsule Orally Once a day; Duration: 30 day(s)ActiveAlbuterolActive Senexon-SActiveRosuvastatin CalciumActiveQUEtiapine FumarateActiveAcetaminophen ActiveAcarboseActivePotassium Chloride ERActivePatadayActiveoxyBUTYnin Chloride ER 10 MG1 tablet Orally Once a day; Duration: 90 days10/08/2024ActiveOndansetron ActiveNystatinActiveMyrbetriq 50 MG1 tablet Orally Once a day; Duration: 90 days 12/22/2023ctiveMyrbetriq 50 MG1 tablet Orally Once a day; Duration: 30 day(s) ActiveMucinexActiveMetoprolol TartrateActiveJardianceActive Social History Tobacco Use: Social History Observation Description Date Details (start date - stop date) Never Smoker NA - NA Tobacco Use/Smoking Question Answer Notes Patient is a nonsmoker Alcohol Screen (Audit-C) Question Answer Notes Did you have a drink containing alcohol in the p ast year? No Aaxjtx5HigymkniwgezxlShlwinlf Problems Problem Type SNOMED Code ICD Code Onset Dates Problem Status W/U Status Risk Notes Problem Atrial fibrillation (disorder) (65230824) Afib (I48.91) ActiveconfirmedProblemHypertension (13887230)HTN (hypertension) (I10)Active confirmedProblemAnxiety (36305382)Anxiety (F41.9)ActiveconfirmedProblem Overactive urinary bladder (disorder) (881543698)OAB (overactive bladder) (N32.81)ActiveconfirmedProblemBladder spasm (818080389)Bladder spasm (N32.89) ActiveconfirmedProblemAltered mental status (445327784)Altered mental status (R41.82)ActiveconfirmedProblemBenign prostatic hypertrophy with outflow obstruction (366967933)BPH loc w urin obs/LUTS (N40.1)ActiveconfirmedProblem Essential hypertension (87050864)Systolic and diastolic hypertension (I10)Active confirmedProblemHypertensive urgency (515340856)Hypertensive urgency (I16.0) Activeconfirmed Vital Signs Height 74 in 07/12/2024 Bamaad152 lbs07/12/2024BMI28.24 kg/m207/12/2024 Encounters Encounter Location Date Provider Diagnosis Urology [facility] [address] [place] [address] 07/12/2024 Yusuf Ramey OAB (overactive bladder) N32.81 and BPH loc w urin obs/LUTS N40.1 Urology [facility] [address] [place] [place] [address] 06/02/2024 Yusuf Ramey Assessments Encounter Date Diagnosis (ICD Code) Assessment Notes Treatment Notes Treatment Clinical Notes Section Notes 07/12/2024 OAB (overactive bladder) (ICD-10 - N32.81) 07/12/2024PH loc w urin obs/LUTS (ICD-10 - N40.1)07/12/2024Other Continue all meds. Discussed surgical options for him but he is doing reasonably well. Will hold off. Plan Of Treatment No Information Insurance Providers Payer Name Payer Address Payer Phone Subscriber Number Group Number Insured Name Patient Relationship to Insured Coverage Start Date Coverage End Date MEDIC[place] [address] [place] [place] [address] [id number] Kimberley Solimanelf - patient is the [id number] 2021MEDICAID [facility] [address] OFF[place] OF [place], [place] [id number] Kimberley Solimanelf - patient is the [id number] 2021 Medical (General) History Medical History History ICD Code stroke atrial fibrillationhypertensiondiabetesanxietyinsomniaedemaThinks he had a covid vaccine at nursing homeSurgical History Surgery Date(Month/Year) 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
--- OUTSIDE RECORDS SUMMARY | 2025-01-19 23:58 | XMS_ITS | Clinical Summary ---
Author Organization [facility] tem Address [id number] [address] [place] [address] Care Team Providers Care Leather Splitter Name Role Phone Unavailable Primary Care Provider Unavailabl e Social History Tobacco UseTypesPacks/DayYears UsedDateSmoking Tobacco: Never AssessedSex and Gender InformationValueDate RecordedSex Assigned at BirthNot on fileLegal Sex Male08/20/2023 8:14 AM EDTGender IdentityNot on fileSexual OrientationNot on file Plan of Treatment Not on file Medical Devices Not on file Insurance
--- OUTSIDE RECORDS SUMMARY | 2025-01-19 23:58 | XMS_ITS | Clinical Summary ---
Author Organization [facility] Address [address] [place] [address] Care Team Providers Care Assistant Spa Director Name Role Phone Keerthi Doyle MD Primary Care Provider + Medications No known medications Active Problems ProblemNoted DateDiagnosed DateBenign prostatic hyperplasia with lower urinary tract wtpyhjoe86/22/2017Essential ibcyvgoxsecy64/22/2017Hemiparesis affecting left side as late effect of cerebrovascular ilqxfamf97/22/2017Olecranon bursitis of right elbow10/26/20155836Wnmxkzxudlr43/01/2016Chronic atrial fibrillation 02/21/2015Dental xmxlfia1801/17/2015Diabetes mellitus without complication 12/20/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, late effect of cerebrovascular jhsdvjw3012/20/2014 Benign hypertensive heart disease without heart ojhhkzj3712/20/2014Primary osteoarthritis of right knee12/20/2014Chronic daily tibesccl28/02/2015Hip strain 03/29/2014 Social History Tobacco UseTypesPacks/DayYears UsedDateSmoking Tobacco: Never AssessedSex and Gender InformationValueDate RecordedSex Assigned at BirthNot on fileLegal Sex Male02/15/2012 10:13 AM ESTGender IdentityNot on fileSexual OrientationNot on file Last Filed Vital Signs Vital SignReadingTime TakenCommentsBlood Ofqnpfbz928/5911 1:41 PM EST Nlykd9571 1:41 PM SWZGygwkhihrzm67 ??C (98.6 ??F)02/09/2017 1:41 PM EST Respiratory Lgul121404/11/2016 1:41 PM ESTOxygen Hwuocsbxii83%10/30/2016 8:00 AM EDTInhaled Oxygen Concentration--Xtxulo02.4 kg (217 lb)10/30/2016 8:00 AM EDT Height--Body Mass Index-- Plan of Treatment Not on file Insurance Care Teams Team MemberRelationshipSpecialtyStart DateEnd Keerthi Doyle MD PCP - GeneralFamily Medicine04/02/11
[2025-01-20 00:02] LABS: Glucose Urine UA >=1000 mg/dL (NEGATIVE)
[2025-01-20 00:19] LABS: Cast Seen? NONE SEEN #/LPF (NONE SEEN); Crystals Seen? None Seen #/HPF (None Seen); Urine Culture Indicated NO
== END 2025-01-20 01:47 | disposition home or self-care (01) ==
PROVIDERS: Emergency Provider Emergency Medicine; PCP Internal Medicine
DX: K64.4 Residual hemorrhoidal skin tags (principal); K92.1 Melena; Z86.73 Personal history of transient ischemic attack (TIA), and cerebral infarction without residual deficits; I51.9 Heart disease, unspecified; Z79.01 Long term (current) use of anticoagulants
CPT/HCPCS: 36415; 81001; 99283

== ENCOUNTER 2025-02-07 15:17 | Emergency (ER) | payer MEDICARE, MEDICAID, SELFPAY ==
[2025-02-07 15:40] VITALS: BP 141/86; PULSE 71; TEMP 36.7; O2SAT 96; BMI 24.5
--- OUTSIDE RECORDS SUMMARY | 2025-02-07 16:06 | XMS_ITS | Clinical Summary ---
Author Organization Address [address] [place] [address] Care Team Providers Care Certified Alcohol Counselor Name Role Phone Keerthi Doyle MD Primary Care Provider + Medications No known medications Active Problems ProblemNoted DateDiagnosed DateBenign prostatic hyperplasia with lower urinary tract wvhiuvuj00/22/2017Essential /22/2017Hemiparesis affecting left side as late effect of cerebrovascular mxxxdmow55/22/2017Olecranon bursitis of right elbow10/26/20152921Bzoqflzkxul79/01/2016Chronic atrial fibrillation 02/21/2015Dental wwmadmw5901/17/2015Diabetes mellitus without complication 12/20/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, late effect of cerebrovascular venjhwg3612/20/2014 Benign hypertensive heart disease without heart jfnyvql0612/20/2014Primary osteoarthritis of right knee12/20/2014Chronic daily mzewnwiy54/02/2015Hip strain 03/29/2014 Social History Tobacco UseTypesPacks/DayYears UsedDateSmoking Tobacco: Never AssessedSex and Gender InformationValueDate RecordedSex Assigned at BirthNot on fileLegal Sex Male02/15/2012 10:13 AM ESTGender IdentityNot on fileSexual OrientationNot on file Last Filed Vital Signs Vital SignReadingTime TakenCommentsBlood Ezpopzvw553/5911 1:41 PM EST Ergbg935802/09/2017 1:41 PM WOHUajvjbmxxgo91 ??C (98.6 ??F)02/09/2017 1:41 PM EST Respiratory Qgsr222704/11/2016 1:41 PM ESTOxygen Eluhplrncs19%10/30/2016 8:00 AM EDTInhaled Oxygen Concentration--Jfwztw12.4 kg (217 lb)10/30/2016 8:00 AM EDT Height--Body Mass Index-- Plan of Treatment Not on file Insurance Care Teams Team MemberRelationshipSpecialtyStart DateEnd Keerthi Doyle MD PCP - GeneralFamily Medicine04/02/11
--- OUTSIDE RECORDS SUMMARY | 2025-02-07 16:06 | XMS_ITS | Clinical Summary ---
Author Organization [facility] tem Address [id number] [address] [place] [address] Care Team Providers Care Train Attendant Name Role Phone Unavailable Primary Care Provider Unavailabl e Social History Tobacco UseTypesPacks/DayYears UsedDateSmoking Tobacco: Never AssessedSex and Gender InformationValueDate RecordedSex Assigned at BirthNot on fileLegal Sex Male08/20/2023 8:14 AM EDTGender IdentityNot on fileSexual OrientationNot on file Plan of Treatment Not on file Medical Devices Not on file Insurance
--- OUTSIDE RECORDS SUMMARY | 2025-02-07 16:06 | XMS_ITS | Clinical Summary ---
Author Organization [facility] Healthcare Address [address] [place] [address] Care Team Providers Care Supervisor Product Inspection Name Role Phone Eliud Echevarria MD Primary Care Provider [phone] Allergies No known active allergies Medications MedicationSigDispense [...] RecordedSex Assigned at BirthNot on file Legal BglQiaq4507/14/2022 8:34 PM EDTGender IdentityNot on fileSexual Orientation Not on file Last Filed Vital Signs Vital SignReadingTime TakenCommentsBlood Yxdyviup035/80105/04/2018 12:00 PM EST Pulse--Temperature--Respiratory Rate--Oxygen Saturation--Inhaled Oxygen Concentration--Rjhjew91.5 kg (215 lb)03/03/2019 12:00 PM CWBJefaao017.9 cm (6') 03/03/2019 12:00 PM ESTBody Mass Index29.16105/04/2018 12:00 PM EST Plan of Treatment Not on file Insurance * Guarantor: Sree Soliman TypeRelation to PatientDate of BirthPhone Billing AddressPersonal/CpgsnbNvfk1945 [facility] [address] [place] [address] Care Teams Team MemberRelationshipSpecialtyStart DateEnd Eliud Echevarria MD [address] [place] [address] PCP - GeneralInternal Medicine04/13/23
--- OUTSIDE RECORDS SUMMARY | 2025-02-07 16:07 | XMS_ITS | Patient Health Record ---
Author Organization [facility] [place] Address [address] [place] [address] Care Team Providers Care Beauty Operator Apprentice Name Role Phone Eliud Echevarria DO Primary Care Provider Unavail saurabh Ramey Yusuf Unavailable [phone] Allergies No Known Allergies Results Component Value Reference Range Notes CBC AUTO DIFF Reviewed date:04/28/2024 08:03:41 PM Interpretation: Performing Lab: Notes/Report: [facility] , White Blood Count 5.1 4.0-11.0 10 3/uL Red Blood Count4.584.70-6.10 10 6/dTNniqpwwpnj55.514.0-18.0 g/aQPfygfkxqtg60.0 42.0-54.0 %Mean Corpuscular Cctsrs39.980.0-94.0 fLMean Corpuscular Hemoglobin 31.725.9-34.0 pgMean Corpuscular HGB Conc33.729.9-35.2 g/dLRed Cell Distribution Width13.011.0-15.0 %Platelet Rdhgq308053-017 10 3/uLMean Platelet Volume8.69.5- 13.5 fLNeutrophils Percent Auto55.743.0-75.0 %Lymphocytes Percent Auto27.420.5- 60.0 %Monocytes Percent Auto11.41.7-12.0 %Eosinophils Percent Auto4.10.9-7.0 % Basophils Percent Auto1.20.2-2.0 %Immature Granulocytes Pct Auto0.20.0-0.5 % Neutrophils Absolute Auto2.81.4-6.5 10 3/uLLymphocytes Absolute Auto1.41.2-3.8 10 3/uLMonocytes Absolute Auto0.60.3-0.8 10 3/uLEosinophils Absolute Auto0.20.0- 0.7 10 3/uLBasophils Absolute Auto0.10.0-0.1 10 3/uLImmature Granulocytes Abs Auto0.010.00-0.03 10 3/uLPerforming Lab:see noteML - [facility] PROF CHEM 8 (BAS METB) Reviewed date:04/28/2024 08:03:41 PM Interpretation: Performing Lab: Notes/Report: [facility] ,Qssasy373650-404 mmol/LPotassium3.63.5-5.1 mmol/JRenixjzz10515-006 mmol/LCarbon Sgtasge94.121.0-32.0 mmol/LAnion Gap11.8Llogihk00993-761 mg/dLBlood Urea Kxgdfnop46.07.0-18.0 mg/dLCreatinine0.970.70-1.30 mg/dLEstimated GFR ( Zeny>60>=60 mL/min/1.73m 2Estimated GFR (Non- Julia>60>=60 mL/min/1.73m 2BUN Creatinine Ratio11.2Xhijwjm0.98.5-10.1 mg/dLPerforming Lab:see noteML - [facility] LB Reason For Referral No Information Medications Medication SIG (Take, Route, Frequency, Duration) Notes Start Date End Date Status Famotidine ActiveEzetimibeActiveEliquisActiveLosartan PotassiumNot-TakingDutasterideActive Diclofenac Sodium 1.6 %as directed ExternallyNot-TakingDULoxetine HClActive Vitamin P0DgpjbxOhsxueduSpglezElitj VaporubActiveCandesartan CilexetilActive TrulicityActiveBaclofenActivetraZODone HClActiveAspirin 81ActiveTamsulosin HCl 0.4 MG1 capsule Orally Once a day; Duration: 30 day(s)ActiveAlbuterolActive Senexon-SActiveRosuvastatin CalciumActiveQUEtiapine FumarateActiveAcetaminophen ActiveAcarboseActivePotassium Chloride ERActivePatadayActiveoxyBUTYnin Chloride ER 10 MG1 tablet Orally Once a day; Duration: 90 days12/22/2023ctiveOndansetron ActiveNystatinActiveMyrbetriq 50 MG1 tablet Orally Once a [...] alcohol in the p ast year? No Pasykm6VdsaqqxoqvrefoWdowdhfl Problems Problem Type SNOMED Code ICD Code Onset Dates Problem Status W/U Status Risk Notes Problem Atrial fibrillation (disorder) (79653937) Afib (I48.91) ActiveconfirmedProblemHypertension (50539270)HTN (hypertension) (I10)Active confirmedProblemAnxiety (01422750)Anxiety (F41.9)ActiveconfirmedProblem Overactive urinary bladder (disorder) (068269976)OAB (overactive bladder) (N32.81)ActiveconfirmedProblemBladder spasm (688047374)Bladder spasm (N32.89) ActiveconfirmedProblemAltered mental status (044017511)Altered mental status (R41.82)ActiveconfirmedProblemBenign prostatic hypertrophy with outflow obstruction (350166536)BPH loc w urin obs/LUTS (N40.1)ActiveconfirmedProblem Essential hypertension (67046895)Systolic and diastolic hypertension (I10)Active confirmedProblemHypertensive urgency (355936468)Hypertensive urgency (I16.0) Activeconfirmed Vital Signs Height 74 in 07/12/2024 Nhokkk874 lbs07/12/2024BMI28.24 kg/m207/12/2024 Encounters Encounter Location Date Provider Diagnosis Urology [facility] [address] [place] [address] 07/12/2024 Yusuf Ramey OAB (overactive bladder) N32.81 and BPH loc w urin obs/LUTS N40.1 Urology [facility] [address] [place] [address] 06/02/2024 Yusuf Ramey Assessments Encounter Date Diagnosis [...] End Date [place] [address] [place] [address] [id number] Kimberley Solimanelf - patient is the [id number] 2021MEDICAID [facility] [address] [place], [place] [id number] Kimberley Solimanelf - patient is the [id number] 2021 Medical (General) History Medical History History ICD Code stroke atrial fibrillationhypertensiondiabetesanxietyinsomniaedemaThinks he had a covid vaccine at nursing homeSurgical History Surgery Date(Month/Year) 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
--- OUTSIDE RECORDS SUMMARY | 2025-02-07 16:20 | XMS_ITS | CCD ---
Author Organization [facility] Inform ion Partnership [facility] Care Team Providers Care Customer Service Engineer Name Role Phone JR Eliud Echevarria Primary Care Provider MD Ana María Valiente Attending Provider Eliud Echevarria MD Primary Care Provider [phone] ALLEN DE LEON Attending Unavailable ALLEN DE LEON Attending Unavailable Eliud Echevarria JR Primary Care Provider Yomi Millard MD Attending Provider Yomi Millard MD Other Provider Amrita ARRIAZA-C, Caron Staton Attending Provider Yomi Millard Admitting Unavailable Yomi Millard Attending Unavailable Eliud Echevarria Primary Care Unavailable Yomi Millard Attending Unavailable Eliud Echevarria Primary Care Unavailable Yomi Millard Admitting Unavailable Yomi Millard Admitting Unavailable Yomi Millard Attending Unavailable Eliud Echevarria Primary Care Unavailable Medications Current Medications MedicationDrug Class(es)DatesSig (Normalized)Sig (Original)acarbose 100 mg oral tablet (6 sources)alpha-Glucosidase InhibitorStart: 25-13-0523mdou 1 tablet by mouth before mealtimeAcarbose 100 mg tablet Active 50 MG PO Before meals September 28, 2024 12:00am Complies with drug therapyStart: 07-07-3474nkuhgojz (Precose) 100 MG tablet 04/01/2024 Activeacetaminophen 500 mg oral tablet (10 sources)Start: 87-19-4785Ibxelhvgzqrjo Extra Strength 500 MG tablet 04/09/2023 ActiveStart: 11-46-4761ncqw 2 tablets by mouth every four hours Acetaminophen Active 2 TAB PO Q4H March 03, 2019 5:56pmStart: 03-03-2019 take 2 tablets by mouth every four hours as needed for painAcetaminophen 325 mg Capsule Active 2 TAB PO Q4H as needed for Pain March 03, 2019 1:00am Compl ies with drug livghosvgj053512 200 actuat albuterol 0.09 mg/actuat metered dose inhaler (9 sources)beta2-Adrenergic AgonistStart: 45-91-4864xzcfvdklt HFA 90 mcg/act inhaler 06/13/2023 ActiveStart: 76-01-7776yobz 1 [IU] by inhalation every six hours as neededAlbuterol Sulfate 2.5 mg /3 mL (0.083 %) Solution For Nebulization Active 1 UNIT INHALATION Q6H as needed for Shortness Of Breath March 03, 2019 1:00am Complies with drug therapyapixaban 5 mg oral tablet (15 sources)Factor Xa InhibitorStart: 27-91-5286zbdg 1 tablet by mouth twice dailyApixaban (Eliquis) 5 mg tablet Active 5 MG PO Twice daily September 19, 2024 12:00am Complies with drugtherapyStart: 03-03-2019 End: 17-18-2889blki 1 tablet by mouth twice dailyApixaban (Eliquis) 5 mg tablet Discontinued 5 MG PO Twice daily March 03, 2019 1:00am 2018 2:30pmaspirin 81 mg oral tablet (8 sources)Platelet Aggregation Inhibitor, Nonsteroidal Anti-inflammatory Drug Start: 97-39-9956Mluxwbn 81 mg tablet Active 81 MG PO 1700 September 19, 2024 12:00am Complies with drug therapyStart: 45-15-3030Ldkakxk Low Dose 81 MG chewable tablet 03/31/2023 Activebaclofen 5 mg oral tablet (1 source)gamma-Aminobutyric Acid-ergic AgonistStart: 34-59-4873xsvcfikg (Lioresal) 5 MG tablet 10/13/2023 Activecandesartan cilexetil 32 mg oral tablet (1 source)Angiotensin 2 Receptor BlockerStart: 44-96-2817qhssslogbus (Atacand) 32 MG tablet 03/11/2024 Activecholecalciferol 0.05 mg oral tablet (2 sources)Vitamin DStart: 60-18-1047rimfkqkjavhqjvx (Vitamin D-3) 50 MCG (1999) tablet 03/24/2023 Activedocusate sodium 100 mg oral tablet (8 sources)Start: 58-44-8458anwc 1 tablet by mouth twice daily as needed for constipationDocusate Sodium 100 mg Tablet Active 100 MG PO Twice daily as needed for Constipation March 03, 2019 1:00am Complies with drug therapy Dulaglutide (5 sources)GLP-1 Receptor AgonistStart: 31-04-4957Cezaj: 52-25-1510Jljblvtmpzi (Trulicity) 3 mg/0.5 mL pen injector Active 3 MG SUBCUT every week September 28, 2024 12:00am QThursday at 0600 Complies with drug therapyDULoxetine 60 mg delayed release oral capsule (8 sources)Serotonin and Norepinephrine Reuptake InhibitorStart: 03-03-2019 Duloxetine 60 mg capsule,delayed release(DR/EC) Active 60 MG PO 1700 March 03, 2019 1:00am Complies with drug therapydutasteride 0.5 mg oral capsule (8 sources)5-alpha Reductase InhibitorStart: 99-19-1293Rgdihnlpqvd 0.5 mg capsule Active 0.5 MG PO 0600 March 03, 2019 1:00am Complies with drug therapyempagliflozin 10 mg oral tablet (9 sources)Sodium-Glucose Cotransporter 2 InhibitorStart: 03-03-2019 Empagliflozin 10 mg tablet Active 10 MG PO 0600 March 03, 2019 1:00am Complies with drug therapyezetimibe 10 mg oral tablet (7 sources)Dietary Cholesterol Absorption InhibitorStart: 94-15-7867Kdjljvjhi 10 mg tablet Active 10 MG PO 1800 September 28, 2024 12:00am Complies with drug therapyStart: 50-05-6419wiqfkeoiu (Zetia) 10 MG tablet 04/04/2023 Active famotidine 40 mg oral tablet (8 sources)Histamine-2 Receptor AntagonistStart: 25-66-8446Bghygeuypj 40 mg tablet Active 40 MG PO 1800 September 19, 2024 12:00am Complies with drug therapy Start: 43-79-2694qzfhetyitw (Pepcid) 40 MG tablet 04/02/2023 Bgbaka44 hr guaiFENesin 600 mg extended release oral tablet (8 sources)Start: 70-11-6548sxxu 2 tablets by mouth twice daily as needed for congestionGuaifenesin (Mucinex) 600 mg Tablet Extended Release 12hr Active 2 TAB PO Twice daily as needed forCongestion March 03, 2019 1:00am Complies with drug therapylosartan potassium 25 mg oral tablet (2 sources)Angiotensin 2 Receptor BlockerStart: 69-60-2533ddebepud (Cozaar) 25 MG tablet 03/11/2023 Activemagnesium hydroxide 80 mg/ml oral suspension (8 sources)Start: 58-28-9281vvbc 1 mL by mouth once daily as needed for constipationMagnesium Hydroxide (Milk Of Magnesia) 400 mg/5 mL Suspension Active 30 ML PO Daily as needed for Constipation March 03, 2019 1:00am Complies with drug gtcxfinSntom-Nboeb-Exjlz-Siberian Fir (Vicks Vapoinhaler) Inhaler (8 sources)Start: 66-95-3294Rdwhf-Njdrr-Rzgpm-Ynpxdwaw Fir (Vicks Vapoinhaler) Inhaler Active 1 SPRAY INTRANASAL As Directed March 03, 2019 5:56pmStart: 73-72-0319Oeklo: 29-28-9533Ebnmt-Hhduj-Igmvj-Btcmlxnv Fir (Vicks Vapoinhaler) Inhaler Active 1 SPRAY INTRANASAL As Directed asneeded for stuffy nose March 03, 2019 1:00am Complies with drug therapymetoprolol tartrate 50 mg oral tablet (8 sources)beta-Adrenergic BlockerStart: 52-21-8828cfox 1 tablet by mouth twice dailyMetoprolol Tartrate 50 mg tablet Active 50 MG PO .0600 1800 September 19, 2024 12:00am BID Complies with drug therapyStart: 98-52-2756hevraallcb tartrate (Lopressor) 25 MG tablet 03/24/2023 Ugluwk21 hr mirabegron 50 mg extended release oral tablet (10 sources)beta3-Adrenergic AgonistStart: 82-16-8206Ruofkqxkc 50 MG 24 hr tablet 03/24/2023 ActiveStart: 03-03-2019 End: 98-88-7285adwn 1 tablet by mouth once dailyMirabegron 50 mg tablet extended release 24 hr Discontinued 50 MG PO Daily March 03, 2019 1:00am September 19, 2024 11:18amnitroglycerin 0.4 mg sublingual tablet (8 sources)Nitrate VasodilatorStart: 34-11-0817Xxlvujxunhjue 0.4 mg Tablet, Sublingual Active 0.4 MG SUBLINGUAL EVERY 5 MINUTES as needed for Chest Pain March 03, 2019 1:00am Complies with drug therapyolmesartan medoxomil 40 mg oral tablet (5 sources)Angiotensin 2 Receptor BlockerStart: 65-37-0969Xwvkscqrzl 40 mg tablet Active 40 MG PO 06September 28, 2024 12:00am Complies with drug therapy olopatadine 2 mg/ml ophthalmic solution (2 sources)Histamine-1 Receptor InhibitorStart: 72-69-0446gcbjvybeglc (Pataday) 0.2 % ophthalmic solution 03/29/2023 Activeondansetron 4 mg disintegrating oral tablet (8 sources)Serotonin-3 Receptor AntagonistStart: 92-51-6691rtme 1 tablet by mouth every six hours as needed for nauseaOndansetron 4 mg Tablet,Disintegrating Active 1 TAB PO Q6H as needed for nausea vomiting March 03, 2019 1:00am Complies with drug nwgjahf02 hr oxybutynin chloride 10 mg extended release oral tablet (6 sources)Cholinergic Muscarinic AntagonistStart: 51-68-4336bmar 1 tablet by mouth every twenty-four hoursOxybutynin Chloride 10 mg tablet extended release 24hr Active 10 MG PO 599September 28, 2024 12:00amComplies with drug therapy Start: 51-20-4661rjepzwdxqq XL (Ditropan-XL) 10 MG 24 hr tablet 03/23/2024 Activemicroencapsulated potassium chloride 20 meq extended release oral tablet (10 sources)Start: 44-48-9522xexrpltxf chloride CR (Klor-Con M20) 20 MEQ ER tablet 03/24/2023 ActiveStart: 99-04-1563yksu 40 mEq by mouth once daily Potassium Chloride Active 40 MEQ PO Daily March 03, 2019 5:56pmStart: 12-61-0168Ysqfjijpc Chloride 20 mEq tablet,ER particles/crystals Active 20 MEQ PO 0600 March 03, 2019 1:00am Complies with drug therapyStart: 03-03-2019 take 2 tablets by mouth once dailyPotassium Chloride 20 mEq tablet,ER particles/crystals Active 40 MEQ PO Daily March 03, 2019 1:00am Complies with drug therapyQUEtiapine 50 mg oral tablet (7 sources)Atypical AntipsychoticStart: 11-64-7462Eiavcrsyke 50 mg tablet Active 50 MG PO 1800 September 28, 2024 12:00am Complies with drug therapyStart: 42-60-2769WNRatcmkoi (SEROquel) 50 MG tablet 04/04/2023 Activerosuvastatin calcium 20 mg oral tablet (8 sources)HMG-CoA Reductase InhibitorStart: 93-99-2267mdkv 1 tablet by mouth once daily at bedtimeRosuvastatin 20 mg tablet Active 20 MG PO Daily at bedtime March 03, 2019 1:00am Complies withdrug therapytraZODone hydrochloride 50 mg oral tablet (8 sources)Serotonin Reuptake InhibitorStart: 83-60-0451Novhsitgj 50 mg tablet Active 25 MG PO 1800 September 19, 2024 12:00am Complies with drug therapyStart: 05-41-3985Kqgsbeqal 50 mg tablet Active MG PO September 19, 2024 12:00am Complies with drug therapyStart: 93-83-7855fbdDYArcb (Desyrel) 50 MG tablet 04/05/2023 ActiveTrulicity 3 MG/0.5ML solution pen-injector (2 sources)Start: 88-83-5636Ncsxdabew 3 MG/0.5ML solution pen-injector 04/09/2023 Active Completed/Discontinued Medications MedicationDrug Class(es)DatesSig (Normalized)Sig (Original)acetaminophen 325 mg / HYDROcodone bitartrate 5 mg oral tablet (8 sources)Opioid AgonistStart: 03-03-2019 End: 83-29-4041sqti 0.5 tablet by mouth every six hours as needed for pain Hydrocodone-Acetaminophen 5-325 mg Tablet Discontinued 0.5 TAB PO Q6H as needed for Pain March 03, 2019 1:00am September 19, 2024 11:17amlisinopril 20 mg oral tablet (8 sources)Angiotensin Converting Enzyme InhibitorStart: 03-03-2019 End: 97-63-6044oltw 1 tablet by mouth twice dailyLisinopril 20 mg tablet Discontinued 20 MG PO Twice daily March 03, 2019 1:00am September 19, 2024 11:18amtamsulosin hydrochloride 0.4 mg oral capsule (9 sources)alpha-Adrenergic BlockerStart: 03-03-2019 End: 29-70-2415hsut 1 capsule by mouth once dailyTamsulosin 0.4 mg capsule Discontinued 0.4 MG PO Daily March 03, 2019 1:00am September 19, 2024 11:18am tamsulosin (Flomax) 0.4 MG 24 hr capsule 1 capsule Active Problems Problem ClassificationProblemDateDocumented DateEpisodic/ChronicCataract (1 source)Artificial lens present; Translations: [Presence of intraocular lens] 37-66-3687OfqsmvoQpmkdair mellitus without complication (1 source)Type 2 diabetes mellitus without complication; Translations: [Type 2 diabetes mellitus without complications]70-51-2047JqqxmfzBbxfztwkcz and visceral atherosclerosis (16 sources)Peripheral vascular disease, unspecified; Translations: [Peripheral arterial disease]Onset: 023829-44-2343CytqvhcPturizu detachments; defects; vascular occlusion; and retinopathy (1 source)Detachment of retina of left eye; Translations: [Serous retinal detachment, left eye]76-52-9646PrutxkhiCfrmxycrpgvd (5 sources)Please call the office to reschedule this appointment if this time does not work for you. Please call with additional questions or concerns. Thank you. Results Test NameValueInterpretationReference RangeFacilityUS arterial duplex LE RTon 28-34-9299IB arterial duplex LE [facility] [address] [place] [address] Ultrasound Report Signed Patient: Lawson Soliman MR#: [id number] : 1945 Acct:[id number] Age/Sex: 79 / M ADM Date: 10/10/24 Loc: [facility] Room: Type: [facility] Attending Dr: Yomi Millard MD Ordering Provider: Yomi Millard MD Date of Service: 10/10/24 US/US arterial duplex LE RT: R60.9 - Edema, unspecified Copies to: Yomi Millard MD Arterial duplex examination right common femoral artery Indication for study: Pain after diagnostic angiogram PROCEDURE: Color-flow duplex scanning is used to interrogate the patient's right common femoral artery. The artery is patent with a good waveform. There is no evidence of pseudoaneurysm. Small hematoma is noted. US/US arterial duplex LE RT IMPRESSION: Patent right common femoral artery. There is no pseudoaneurysm although some hematoma is noted. Impression dictated by: Yomi Millard M.D. 10/10/2024 10:43 AM Dictation Location: [place] [address] Tech: Karey Jcer Transcribed By: NEELAM 10/10/24 1043 Dictated By: Yomi Millard MD 10/10/24 1042 Signed By: 10/10/24 [facility] Physician GroupUS ankle/arm indiceson 48-53-3790EQ ankle/arm indicesKETTERING HEALTH [facility]AVIOR[facility] Main [place] [address] [place] [address] Ultrasound Report Signed Patient: Lawson Soliman MR#: [id number] : 1945 Acct:[id number] Age/Sex: 79 / M ADM Date: 09/28/24 Loc: Room: Type: [facility] Attending Dr: Yomi Millard MD Ordering Provider: Caron Crowe APRN Date of Service: 09/29/24 US/US ankle/arm indices: new baseline post intervention Copies to: ABILIO Richardson MD LOWER EXTREMITY SEGMENTAL ARTERIAL DOPSCAN (PVR) INDICATION: Peripheral vascular occlusive disease status post left leg revascularization PROCEDURE: Right arm blood pressure is 152 , left is 152 . Pressures at the right ankle are 206 using the posterior tibial artery, and 161 using the dorsalis pedis artery with ankle-brachial index of 1.36 1.06 . Pressures at the left ankle are 218 using the posterior tibial artery, and 209 with ankle- brachial index of 1.43 1.38 . Wave forms by plethysmography are strongly pulsatile US/US ankle/arm indices IMPRESSION: There is an element of incompressibility which makes quantitative information somewhat limited. Ankle-brachial indices on the right side are normal but the waveforms suggest at least mild peripheral vascular occlusive disease. Waveforms on the left side are nearly normal at this point and the ankle-brachial index is higher than expected. Overall minimal peripheral vascular occlusive disease is likely in the left leg at this time. Impression dictated by: Yomi Millard M.D. 09/30/2024 1:53 PM Dictation Location: [place] [address] Tech: Kerri Alvaradoer Transcribed By: NEELAM 09/30/24 1353 Dictated By: Yomi Millard MD 09/30/24 1352 Signed By: 09/30/24 1353Lake Region HospitalGlucose Poct Glucometerson 82-08-2486Shxjdzl9Xvl2: Cleaned MeterNoMcCullough-Hyde Memorial HospitalComment on above:Result Comment: PERFORMED BY: [place] [address] PATHOLOGIST HYDRATE CONTROL TENDER OSVALDO PICKENS M.D.Performed By: #### GLULS #### Point of Care testing ,Glucose [Mass/Vol]183 mg/dLLake Region HospitalComment on above: Result Comment: Random Glucose Reference Range is dependent on time and content of last meal. Glucose of more than 200 mg/dL in a nonstressed, ambulatory subject supports the diagnosis of Diabetes Mellitus.Performed By: #### GLULS #### Point of Care testing ,Blood Urea Nitrogenon 23-21-2894Bppu nitrogen [Mass/Vol]18 mg/dLNormalGritman Medical Center Physician [facility] WesleyComment on above:Performed By: #### BUN, CREAT #### [facility] [address] [place], [place] [address] USACreatinineon 92-29-4634Zrshuebwul [Mass/Vol]1.00 mg/dL Normal0.70-1.30The [facility] Hospital Of Chester CountyComment on above:Performed By: #### BUN, CREAT #### [facility] [address] [place] [address] USACreatinine Clr Calc Kbgdmrlw34.78NoBlowing Rock Hospital Physician [facility] Health WesleyComment on above:Result Comment: PERFORMED BY: [place] [address] PATHOLOGIST HYDRATE CONTROL TENDER OSVALDO PICKENS M.D.Performed By: #### BUN, CREAT #### [facility] [address] [place] [address] USAGFR/1.73 sq M.predicted MDRD (S/P/Bld) [Vol rate/Area] mL/min/{1.73_m2}NormalThe [facility] Physician GroupComment on above:Performed By: #### SOHA, CREAT #### [facility] [address] [place] [address] USABacteria identified Aer cx Nom (Unsp spec)Ordered By: Ana María Valiente on 92-89-5237Ytqblmklqob Wound CultureStaphylococcus aureus Southview Medical CenterCNOVon 51-16-6838CCQSWheojr Visit (WHITNEY) ------LAWSON SOLIMAN ([id number]) 1945 MDate Time Provider Jhthohrlnr19/27/17 JORDAN GARCIA (PA) During your visit today, we recorded the following information about you: Temperature Pulse Respiration Blood pressure 98.6 degrees 61/minute 18/minute 138/59Paulettla Garcia PA-C 02/09/2017 2:24 PM AddendumPatient Name: Lawson Lieberman FinavyMRN: [id number] For Visit: Assisted Visit at [facility] for a follow up fordischarge visit.Past [...] sob. He eats well and bowels are regular.He deniespain. Medically has been stable for some time and blood sugars are wellcontrolled.Review of SystemAll others reviewed and negativeFamily/Social History: Unchanged, see HANDamp;P.Medications:REVIEWED IN RETIREMENT CHARTObjective Data:BP 138/59 Pulse 61 Temp 37 ?C (98.6 ?F) Resp 18General Appearance: well appearing, alert, in no acute distressSkin: Skin color, texture, turgor normal, no suspicious rashes or lesionsHead: normalRespiratory: Lungs clear to auscultation. No wheezing, rhonchi, ralesHeart: irreg irregAbdomen: Abdomen soft, non-tender. Bowel sounds normal. No masses,organomegalyExtremeties: No deformities, edema, skin discoloration, clubbing or cyanosis.Good capillary refill.Mild left hemiplegiaAssessment/Plan:I have reviewed this patient's medications and treatment plan, as well as mostrecent labwork.ASSESSMENT/PLAN:1. Hemiparesis affecting left side as late effect of cerebrovascular accident(HCC) - ICD9: 438.20, ICD10: I69.354 (primary diagnosis)Cont risk factor reduction and monitor closely. OK to dc to assisted livingwhen arrangements can be made. Rx wr itten for wc and raised toilet seat withbars.2. [...] spent in the discharge process on this patientPauleJUHI Watson-CI'll make no further changes at this [...] Hyperlipidemia, unspecified hyperlipidemia type [E78.5]Problem List As OfDate 02/09/2017 Noted Resolved Hip strain [S76.019A] INVALID FOR* Chronic daily headache [R51] INVALID FOR* Diabetes mellitus without complication (HCC) [E*INVALID FOR* Paralytic syndrome, late effect of cerebrovascu*INVALID FOR* Benign hypertensive heart disease without heart*INVALID FOR* Primary o steoarthritis of right knee [M17.11] INVALID FOR* Dental abscess [K04.7] INVALID FOR* Chronic atrial fibrillation (HCC) [I48.2] INVALID FOR* Hypotension [I95.9] INVALID FOR* Olecranon bursitis of right elbow [M70.21] INVALID FOR* Benign prostatic hyperplasia with lower urinary*INVALID FOR* Essential hypertension [I10] INVALID FOR* Hemiparesis affecting left side as late effect *INVALID FOR* Status:Closed by JORDAN GARCIA on 02/09/17[facility] 40-43-9260VEDYWKIBQHN ID: [id number]: Jordan Cowart) GrantService: (none)Author Type: Physician AssistantType: Progress NotesFiled: 02/09/2017 2:24 PMNote Text:Patient Name: Lawson DesirilvyMRN: [id number] For Visit: Assisted Visit at [facility] for a follow upfor discharge visit.Past [...] controlled.Review of SystemAll others reviewed and negativeFamily/Social History:Unchanged, see HANDP.Medications: REVIEWED IN RETIREMENT CHARTObjective Data:BP 138/59 Pulse 61 Temp 37 ?C (98.6 ?F) Resp 18General Appearance: well appearing, alert, in no acute distressSkin: Skin color, texture, turgor normal, no suspicious rashes or lesionsHead: normalRespiratory: Lungs clear to auscultation. No wheezing, rhonchi, ralesHeart: irreg irregAbdomen: Abdomen soft, non-tender. Bowel sounds normal. No masses,organomegalyExtremeties: No deformities, edema, skin discoloration, clubbing orcyanosis. [...] spent in the discharge process on this patientPaJUHI Bond-CI'll make no further changes at this time. We will continue to monitor foroverall comfort, function and safety.Signature: JUHI Reinoso-CDate: February 09, 2017NoThe [facility] Hospital [id number] ID: [id number]: Giulia Caballeroice: (none)Author Type: PhysicianType: Progress NotesFiled: 01/30/2017 10:27 AMNote Text: [facility] NOTENAME: ZONIA SOLIMAN NO.: [id number] OF SERVICE: 01/27/2017[facility] OF : 1945He is sitting up. He [...] with current pravastatin therapy.DICTATED BY: Giulia Hollis MDIAE/AcusisD:01/27 JOB# [id number]:[facility] hospitaltroniclong [facility] Signed by Giulia Hollis MD at 01/30/2017 10:19:29NoPrem[facility] [id number] Visit (WHITNEY) ------ROXLAWSON FERGUSON ([id number]) 1945 [facility] Provider Imydjwdhnh43/13/17 JORDAN GARCIA (PA) During your visit today, we recorded the following information about you: Temperature Pulse Respiration Blood pressure 98.4 degrees 64/minute 18/minute 112/70Jordan Garcia PA-C 12/26/2016 2:27 PM SignedPatient Name: Lawson Brito: [id number] For Visit: Assisted Visit at [facility] for a monthly visit.Past Medical Hx: [...] and bowels areregular. No urinary issues.Review of S ystemGENERAL: No weight loss, malaise or fevers.PAIN: No [...] negativeFamily/Social History: Unchanged, see HANDamp;P.Medications: REVIEWED IN RETIREMENT CHARTObjective Data:BP 112/70 Pulse 64 Temp 36.9 ?C (98.4?F) Resp 18General Appearance: well appearing, alert, in no acute distress, lefthemiplegiaHead: mouth moist, normalRespiratory: Lungs clear to auscultation. No wheezing, rhonchi, ralesHeart: RRR without murmur, gallop, or rubs. No ectopyAbdomen: Abdomen soft, non-tender. Bowel sounds normal. No masses, organomegalyExtremeties: No deformities, edema, skin discoloration, clubbing or cyanosis.Goodcapillary refill.Neurologic: left hemiplegiaAssessment/Plan:I have reviewed this patient's [...] diabetes mellitus with complication, without long-term current useof insulin (HCC) [E11.8] Hyperlipidemia, unspecified hyperlipidemia type [E78.5]Problem List As Of Date 12/26/2016 Noted Resolved Hip strain [S76.019A] INVALID FOR* Chronic daily headache [R51] INVALID FOR* Diabetes mellitus without complication (HCC) [E*INVALID FOR* Paralytic syndrome, late effectof cerebrovascu*INVALID FOR* Benign hypertensive heart disease without heart*INVALID FOR* Primary os teoarthritis of right knee [M17.11] INVALID FOR* Dental abscess [K04.7] INVALID FOR* Chronic atrialfibrillation (HCC) [I48.2] INVALID FOR* Hypotension [I95.9] INVALID FOR* Olecranon bursitis of right elbow [M70.21] INVALID FOR* Benign prostatic hyperplasia with lower urinary*INVALID FOR* Essentialhypertension [I10] INVALID FOR* Hemiparesis affecting left side as late effect *INVALID FOR* Status:Closed by JORDAN GARCIA on 12/26/16[facility] [id number] ID: [id number]: Jordan Cowart) GrantService: (none)Author Type: Physician AssistantType: Progress NotesFiled: 12/26/2016 2:27 PMNote Text:Patient Name: Lawson DesirilvyMRN: [id number] For Visit: Assisted Visit at [facility] for a monthlyvisit.Past Medical Hx: No past medical history on file.Subjective Data:Pt is found resting in room alert and cooperative for exam. Patientreports that he is doing well. He is s/p left eye surgery about 1 monthago for retinal detachment. Hethinks the vision is gradually improving.He tells me that he will be moving to assisted living before the year isout and is very happy about this. Denies CP, SOB. States appetite isgood and bowels are regular. No urinary issues.Review of SystemGENERAL: No weight loss, malaise or fevers.PAIN: No 0 on a scale of 0 to 10RESPIRATORY: Negative for cough, hemoptysis, wheezing, COPD, dyspnea orshortnessof breathCARDIOVASCULAR: Negative for chest pain, leg swelling, CHF or palpitationsGI: Negative forabdominal discomfort, nausea, vomiting, dysphagia,odynophagia, hematemesis, hematochezia, melena, change in bowel habitsGU: Negative for dysuria, urgency, frequency and incontinenceMUSCULOSKELETAL: Negative for joint pain or swelling, back pain or musclepainAll others reviewed and negativeFamily/Social History: Unchanged, see HANDP.Medications: REVIEWED IN RETIREMENT CHARTObjective Data:BP 112/70 Pulse 64 Temp 36.9 ?C (98.4 ?F) Resp 18General Appearance: well appearing, alert, in no acute distress, lefthemiplegiaHead: mouth moist, normalRespiratory: Lungs clear to auscultation. No wheezing, rhonchi, ralesHeart: RRR without murmur, gallop, or rubs. No ectopyAbdomen: Abdomen soft, non-tender. Bowel sounds normal. No masses,organomegalyExtremeties: No deformities, edema, skin discoloration, clubbing orcyanosis. Good capillary refill.Neurologic: left hemiplegiaAssessment/Plan:I havereviewed this patient's medications and treatment plan, as [...] long-term currentuse of insulin (HCC) - ICD9: 250.90,ICD10: E11.8Controlled.- No meds5. Hyperlipidemia, unspecified hyperlipidemia type - ICD9: 272.4, ICD10:E78.5- good control- Continue current medication.JUHI Reinoso-CI'll make no further changes at this time. We will continue to monitor foroverall comfort, function and safety.Signature: JUHI Reinoso-CDate: December 26, 2016NoalCMain Campus Medical CenterPROGRESSon [id number] ID: [id number]: Itri Yessenia ErenService: (none)Author Type: PhysicianType: Progress NotesFiled: 12/02/2016 5:17 PMNote Text: [facility] NOTENAME: LAWSON SOLIMANTRISTANWILNER NO.: [id number] OF SERVICE: 12/01/2016[place] GardensDATE OF : 1945He is resting in hisreclining chair. He states that he did not sleepwell last night. He has had no breathing problems or chest pain. Hisappetite has been fairly good. Nursing reports no other problems.MEDICATIONS: Review ed.PHYSICAL EXAMINATION: Afebrile, vital signs stable. HEENT: Intact.Lungs: Clear. Heart: Regular. Abdomen: Soft and nontender. Bowelsounds present. Extremities: With trace edema. He does have lefthemiparesis.IMPRESSION:1. History of atrial fibrillation - he has been rate controlled. Hedoes have Saira bao therapy.2. Hypertension - her blood pressures have been within a fair range.3. Diabetes mellitus type 2 - we will continue to monitor his bloodsugars. Most recent hemoglobin A1c level is within a very good range.4. Previous cerebrovascular accident - monitor for signs of recurrenceor extension.5. Hyperlipidemia - she is on pravastatin therapy.DICTATED BY: Giulia Hollis MDIAE/AcusisD:12/01/2016 JOB# [id number]:[place] [facility]omblectroniclong beach community hospital Signed by Giulia Hollis MD at 12/02/2016 17:13:10Normal [facility] HospitalPROGRESSon [id number] ID: [id number]: Maggie Westfall ([facility]) Hubert: (none)Author Type: Nurse PractitionerType: Progress NotesFiled: 11/05/2016 12:57 PMNote Text: [facility] NOTENAME: ZONIA SOLIMAN NO.: [id number] OF SERVICE: 11/01/2016[facility] OF : 1945Seen today after review of his labs as well as an x-ray. The patient washaving hip and back pain.X-ray indicates he has degenerative jointdisease, but no fractures. I am encouraging him to attend hysicaltherapy to see if that helps. Otherwise, he is alert and oriented. Nosigns of any illness. Vital signs are stable. No fevers.REVIEW OF SYSTEMS: He can ambulate with assistance, but he needs 0-ke-0jtetuektbn to walk a few steps. He is a mostly worried about chronicpain. He is oriented times 3with short-term memory loss. No chest painor shortness of breath. Bowel and bladder function are intact.PHYSICAL EXAMINATION: Bowel sounds are times 4. Voids in adequateamount without pain. Hearing is impaired. Vision is intact. Heart isregular. Lungs are clear.PLAN: At this time is to encourage him to attend physical therapy.DICTATED BY: JANEY SKINNER/RickeysD:11/01/2016 JOB# [id number]:Ady [place] CitysElectroniclong beach community hospital Signed by MAYITO KRAFT CNP at 11/05/2016 12:43:45NoHighland District HospitalCNOVon 04-15-3150TBLVXhpchy Visit (WHITNEY) ------LAWSON SOLIMAN ([id number]) 1945 MDate Time Provider Department10/30/16 RUT DOMINGUEZ (CLEANING MANAGER) WHITNEY During your visit today, we recorded the following information about you: Temperature Pulse Respiration Blood pressure 97.4 degrees 62/minute 18/minute 142/70 Weight 98.4 kgRut Dominguez CNP 10/30/2016 4:33 PM SignedPatient Name: Lawson Lieberman FedericoRN: [id number] For Visit: Nursing HomeVisit at [facility] for a Acute for Left [...] see HANDamp;P.?Medications: see current medication list in [facility] chart, reviewed(Medi cations in [facility] may not accurate, please see update in [facility] chart)?Objective Data:BP 142/70 Pulse 62 Temp 36.3 ?C (97.4 ?F) Resp 18 Wt 98.4 kg (217 lb) SpO2 95%General: Alert, no distress, comfortable, and cooperativeSkin: warm dry intact.Chest: good resp effort, lung clear to auscultation b ilaterallyCardiac: normal S1S2, no murmur,Abdomen: Soft, non tender, +ve BSBack: tender at LS spineand L hip (SI joint) w muscle spasmExtremities: L paresisPulses: 2+radial,Neuro: AANDamp;oX 3Psy: depressed?The reminder of the physical exam is noncontributory.?Assessment/Plan:I have reviewed this patient's medications and treatment [...] I69.3545. Essential hypertension - ICD9: 401.9, ICD10: L44Aspyh () 1/2 tab bid + q6 prnCont' current meds regimenLab: ua+ c/sLS spineANDamp; hip xrayPT consultObserve condition ANDamp; behaviorDiscuss plan of care w R ANDamp; staffI'll make no further changes at this time. We will continue to monitor foroverall comfort, function and safety.Signature: Rut Dominguez CNPDate: October 30, 2016Allergies As of Date: 10/30/2016(Noton File)Date Reviewed: Never ReviewedPrimary Visit Diagnosis:Left hip [...] FOR* Status:Closed by RUT DOMINGUEZ CNP on 10/30/16[facility] 10-30-2016 PROGRESSHNO ID: [id number]: Rut (Sanjiv) AngeloService: (none)Author Type: Nurse PractitionerType: Progress NotesFiled: 10/30/2016 4:33 PMNote Text:Patient Name: Lawson RingMinaRN: [id number] For Visit: Assisted Visit at [facility] for a Acute forL eft hip and lower back painPast Medical Hx: HTN, HPL, CVA w L paresis, Chr Afib, depression?Subjective Data:HX of stroke w L paresisRecent c/o increasing L deanna pain w Limited activity and difficultyperformed ADL's. no other ssx.Rin bed, AANDO, pleasant. C/o L deanna ( pointed at L sides to hip andlower back pain) over past 2-3 wks. Denies any injury, fall. No pain whendeep breath, no change in urine or bowel habit. No N/V, abd pain or otherdiscomfort. Pain worse when changing position/ taking tylenol w not muchhelp anymore.Denies mood change. No change in appetite. Sleep [...] see HANDP.?Medications: see current medication list in [facility] chart, reviewed(Medications in [facility] may not accurate, please see update in [facility] chart)?Objective Data:BP 142/70 Pulse 62 [...] depressed?The reminder of the physical exam is noncontributory.?Assessment/Plan:I have revi ewed this patient's medications and treatment plan, as well asmost recent labwork.ASSESSMENT/PLAN:1. Left hip pain - ICD9: 719.45, ICD10: M25.552 (primary diagnosis)2. Chronic left-sided low back pain, with sciatica presence unspecified -ICD9: 724.2, 338.29, ICD10: M54.5, G89.293. Pain after cerebro vascular accident (CVA) - ICD9: 438.89, 780.96,ICD10: I69.398, R524. Hemiparesis affecting left side as late effect of cerebrovascularaccident (HCC) - ICD9: 438.20, ICD10: I69.3545. Essential hypertension - ICD9: 401.9, ICD10: W96Szbao () 1/2 tab bid + q6 prnCont' current meds regimenLab: ua+ c/sLS spine AND hip xrayPT consultObserve condition AND behaviorDiscuss plan of care w R AND staffI'll make no further changes at this time. We will continue to monitor foroverall comfort, function and safety.Signature: Rut Dominguez CNPDate: October 30, 2016NoHighland District HospitalPROESSon [id number] ID: [id number]: Giulia WatkinsnService: (none)Author Type: PhysicianType: Progress NotesFiled: 10/03/2016 5:28 PMNote Text: [facility] NOTENAME: LAWSON SOILMANREGINA NO.: [id number] OF SERVICE: 10/02/2016Ady Aguilera is up and about in his wheelchair. Overall doing quite well. He hasno complaints. His appetite has been good. He denies any shortness ofbreath or chest pain.MEDICATIONS: Reviewed.EXAMINATION: Afebrile, vital signs are stable. HEENT: Intact. Lungs:Clear. Heart: Regular. Abdomen: Soft and nontender. Extremities:With trace edema. He does have left hemiparesis.IMPRESSION:1. Previous cerebrovascular accident. - Monitor for signs of recurrenceor extens ion.2. Diabetes mellitus, type 2. - Blood sugars have been doing well. 3.Essential hypertension. - Continue to monitor blood pressure. 4.History of atrial fibrillation. - He has been rate controlled.He is onEliquis therapy.5. Hyperlipidemia. - He is on pravastatin therapy.DICTATED BY: Giulia Hollis MDIAE/AcusisD:10/02/2016 JOB# [id number]:Ady [facility] Macomblectronically Signed by ItriA. Bunny MD at 10/03/2016 17:10:48Normal [facility] Vital Signs Date TimeVital SignValuePerforming UhjwuafflDjjqhzvu78-66-5936 11:51-0400Body gsxiyc214.5 cmCoscar Burrone Work Phone: [phone] [place], [place] 9364508-25-2025 11:51-0400 Body mass index (BMI) [Ratio]28 kg/q2Xdghuzm Valone JR Work Phone: [phone] [place], [place] 9364508-25-2025 11:51-0400 Body vdyggzqculr34 [degF]Eliud Burrone Work Phone: [phone]08-25-2025 11:51-0400 Body .6 kgChnaterrussell Burrone JR Work Phone: [phone])[address]45 [address]08-25-2025 11:51-0400 Diastolic blood vmdmgesb00 mm[Hg]Eliud Burrone Work Phone: [phone])19545 [address]08-25-2025 11:51-0400 Heart rate76 /minEliud Valone JR Work Phone: [phone] [place], [place] 9364508-25-2025 11:51-0400 SaO2% (BldA) [Mass fraction]97 %Eliud Burrone Work Phone: 1(655)711-[address] [place], [place] 9364508-25-2025 11:51-0400 Systolic blood wdcyhnbl196 mm[Hg]Eilud Burrone Work Phone: 1([phone] [place], [place] 9364507-28-2025 10:10-0400 Body ywqpaseevdk78.8 [degF]Eliud Burrone Work Phone: [phone] [place], [place] 9364507-28-2025 10:10-0400 Diastolic blood vmoxxdfn53 mm[Hg]Eliud Valone JR Work Phone: 1(711)031-[address] [place], [place] 9364507-28-2025 10:10-0400 Heart rate87 /minChanterrussell Valone JR Work Phone: 1(771)727-[address] [place], [place] 9364507-28-2025 10:10-0400 Respiratory rate16 /minChanterrussell Valone JR Work Phone: 1([phone])849-[address] [place], [place] 9364507-28-2025 10:10-0400 SaO2% (BldA) [Mass fraction]98 %Eliud Burrone JR Work Phone: [phone] [place], [place] 9364507-28-2025 10:10-0400 Systolic blood pjndskbi770 mm[Hg]Eliud Valone JR Work Phone: 1(920)982-[address] [place], [place] 9364507-17-2025 11:00-0400 Respiratory rate17 /minChanterrussell Valone JR Work Phone: [phone])43245 [address]07-17-2025 08:00-0400 Body kwzlrqyriso23.7 [degF]Eliud Burrone JR Work Phone: 1(411)[address]45 [address]07-17-2025 08:00-0400 Diastolic blood yqihhgor53 mm[Hg]Eliud Burrone JR Work Phone: 1(848)186-[address] [place], [place] 9364507-17-2025 08:00-0400 Heart rate70 /Nishi Valone JR Work Phone: 1(488)117-[address] [place], [place] 9364507-17-2025 08:00-0400 SaO2% (BldA) [Mass fraction]96 %Eliud Burrone Work Phone: 1(788)994-[address] [place], [place] 9364507-17-2025 08:00-0400 Systolic blood hbtvacdy456 mm[Hg]Eliud Burrone JR Work Phone: 1([phone])561-[address] [place], [place] 9364507-17-2025 05:56-0400 Body uzymzo57.7 kgChanterrussell Valone JR Work Phone: [phone] [place], [place] 9364507-16-2025 14:20-0400 Inhaled oxygen flow rate2 L/minChanterrussell Valone JR Work Phone: 1(818)554-[address] [place], [place] 9364507-16-2025 11:54-0400 Body .5 cmCoscar Valone JR Work Phone: [phone])986-[address] [place], [place] 9364507-07-2025 11:14-0400 Body aptjdr540.5 cmCharles Valone JR Work Phone: 1(688)081-[address] [place], [place] 9364507-07-2025 11:14-0400 Body mass index (BMI) [Ratio]28 kg/n1Wxwarsr Wale Work Phone: 1(124)667-[address] [place], [place] 9364507-07-2025 11:14-0400 Body pjxaakddpop37 [degF]Eliud Wale Work Phone: 1(987)169-[address] [place], [place] 9364507-07-2025 11:14-0400 Body .6 kgEliud Wale Work Phone: [phone])47145 [address]07-07-2025 11:14-0400 Diastolic blood ypflozfi87 mm[Hg]Eliud Wale Work Phone: 1(908)862-[address] [place], [place] 9364507-07-2025 11:14-0400 Heart rate64 /minEliud Burrmiya Work Phone: [phone])[address]07-07-2025 11:14-0400 Respiratory rate18 /Ruddydinora Burrmiya Work Phone: 1(760)658-[address] [place], [place] 9364507-07-2025 11:14-0400 SaO2% (BldA) [Mass fraction]92 %Eliud Wale Work Phone: 1(807)706-[address] [place], [place] 9364507-07-2025 11:14-0400 Systolic blood ivwwjgmu743 mm[Hg]Eliud Echevarria JR Work Phone: [phone] [place] [address] Encounters Encounter DateEncounter TypeCare ProviderFacilityStart: 11-07-2024 End: 91-21-8336Pqqawoq encounter procedureCaron Crowe [facility] Work Phone: Start: 11-07-2024 End: 01-14-6050ijlqigobodBkkunbm L Valone JR Work Phone: [phone] [place] [address] Work Phone: Start: 10-10-2024 End: 98-52-2582nxjqnafaxoGksxgyv L Valone JR Work Phone: [facility] Work Phone: Start: 10-10-2024 End: 89-33-7802Gaigncd encounter procedureCaron Brionna Amrita [facility] Work Phone: Start: 09-28-2024 End: 77-99-3048bhhpjmntcxWbqbqtv BuehrerFacility:[facility] Hospitaltart: 57-95-0076Kqi-patient / Non-visitYomi Millard MD-[facility] Work Phone: Start: 09-19-2024 End: 33-76-2540ayxjmsxbfxJogjcwi L Valone JR Work Phone: [facility] Work Phone: Start: 09-19-2024 End: 23-79-2873Plxoboq encounter procedureYomi Millard MD-[facility] Work Phone: Start: 04-11-2024 End: 03-65-3733Jqozcw Ramone De Leon MD Work Phone: [facility] OPHTStart: 04-11-2024 End: 56-18-9643Hozitwkat De Leon MD Work Phone: [facility] OPHTStart: 04-11-2024 End: 92-95-2626cupbcybravHWCPO M ALLENNot AvailableStart: 04-13-2023 End: 37-76-7791yfxvzkgbpzXGIFO M ALLENNot AvailableStart: 08-28-2021 End: 68-10-2731Phczgoyb ReferredJBrionna Echevarria Work Phone: [facility] HospitalStart: 08-21-2021 End: 89-32-7133Eshzxenl ReferredJBrionna Echevarria Work Phone: [facility] [place] Procedures DateProcedureProcedure DetailPerforming ClinicianStart: 94-54-0249Kjzkqi scan of lower limb arteriesCharrussell Echevarria Work Phone: Start: 04-11-2024 End: 32-50-9467Sjejc medical xm&eval comprhnsv estab pt 1/>Type 2 diabetes mellitus without complication, without long-term current use of insulin ([facility])Allen De Leon MD Work Phone: comment on above:Type 2 diabetes mellitus without complication, without long-term current use of insulin ([facility]) (Primary Dx); Pseudophakia; Left retinal detachmentStart: 66-89-0448Cvbgbly microbial cultureJR Eliud Echevarria Work Phone: Plan of Treatment DateCare ActivityDetailAuthorStart: 26-46-9008Iamtp brachial pressure index [facility] Hospitaltart: 55-55-2811Ybzmfbsk admissionAvita Health System Ontario Hospitaltart: 09-28-2024 End: 30-66-4022RdfrykgemAvita Health System Ontario Hospitaltart: 04-11-2024 End: 80-64-6700Kjafgcq encounter lcnjwtjxu94/27/2025 10:15 AM EST Office Visit [facility] [address] [place] [address] Allen De Leon MD [address] [place] [address] ArrivedNOMS NB OPHTComment on above:ArrivedStart: 08-28-2021 Superficial Wound CultureSuperficial Wound CultureAvita Health System Ontario Hospitaltart: 35-43-8434Projvlhrzoo Wound CultureSuperficial Wound Culture [facility] CenterAnkle brachial pressure indexSouthview Medical CenterBacteria identified in Unspecified specimen by Aerobe culture [facility] Work Phone: Patient EducationKnow your MedsC[facility] Clinic [facility] Work Phone: Patient referralC[facility] Work Phone: Payers DatePayer CategoryPayerPolicy [id number] 2018MedicaidMEDICAID [place] [id number] [id number] 2012[place] [id number] [id number] [id number] .[id number] .[id number] 2..[id number] 2..[id number] [id number] 2..[id number] Social History DateTypeDetailFacilityStart: 03-08-2019 End: 33-47-8355Kygargz smoking status NHISNever smoked tobacco (finding) [facility] Hospitaltart: 45-17-9000Gum Assigned At BirthMale [facility] Hospitaltart: 10-90-3997Tghsfea use and exposure Smokeless tobacco non-userNOMS HealthcareStart: 13-93-4459Fwknrxp of Social functionNOMS HealthcareStart: 85-14-1788Asjjxqr use panelNOWI HealthcareStart: 72-30-9945Yld assigned at birthNot on fileNOWI HealthcareSexMale (finding) [facility] Hospitaltart: 24-21-1417ZHCW Follow upSDOH Follow up [facility] Work Phone: Radiology Diagnostic study note 10-10-2024 Note Date & ZsmaVfmyOekipqmk10-91-4369 Radiology [facility] noteP[facility] [address] [place] [address] Ultrasound Report Signed Patient: Lawson Soliman MR#: [id number] : 1945 Acct:[id number] Age/Sex: 79 / M ADM Date: 5 Loc: [facility] Room: Type: [facility] Attending Dr: Yomi Millard MD Ordering Provider: Yomi Millard MD Date of Service: 10/10/24 US/US arterial duplex LE RT: R60.9 - Edema, unspecified Copies to: Yomi Millard MD~ Arterial duplex examination right common femoral artery Indication for study: Pain after diagnostic angiogram PROCEDURE: Color-flow duplex scanning is used to interrogate the patient's rightcommon femoral artery. The artery is patent with a good waveform. There is no evidence of pseudoaneurysm. Small hematoma is noted. US/US arterial duplex LE RT IMPRESSION: Patent right common femoral artery. There is no pseudoaneurysm although some hematoma is noted. Impression dictated by: Yomi Millard M.D. 10/10/2024 10:43 AM Dictation Location: [place] [address] Tech: Karey Jcer Transcribed By: NEELAM 10/10/24 1043 Dictated By: Yomi Millard MD 10/10/24 1042 Signed By: 10/10/24 1043 [facility] Work Phone: Evaluation note 09-19-2024 Note Date & KysyLuhmOenspktx54-43-1265 Evaluation note* Diagnosis Onset Date Resolution Status Admit Date Peripheral artery disease acuteJuly 2024 11:07am [facility] Work Phone: Evaluation note 09-19-2024 Note Date & TaelQtiwIpujhkkd75-20-9306 Evaluation note* Diagnosis Onset Date Resolution Status Admit Date Peripheral artery disease acuteJuly 2024 11:07amPeripheral artery diseaseacuteJuly 2024 9:49am [facility] Work Phone: Evaluation note 09-19-2024 Note Date & GuxuYtkdVjjhpxbb27-77-3196 Evaluation note* Diagnosis Onset Date Resolution Status Admit Date Peripheral artery disease acuteJuly 2024 11:07amPeripheral artery diseaseacuteJuly 2024 9:49am Peripheral artery diseaseacuteAugust 2024 10:43am [facility] Work Phone: History of Present illness Narrative 04-11-2024 Note Date & ZjazVawbFafwsjnv54-03-2580 History of Present illness Narrative* Allen De Leon MD - 04/11/2024 10:15 AM EST Assessment/Plan Diabetes Mellitus without sign of diabetic retinopathy on dilated retinal examination today OU: Discussed the pathophysiology of diabetes and its effect on the eye. Stressed the importance of strong glucose control. Advised of importance of at least yearly dilated examinations, but to contact us immediately for any problems or concerns. documented in this encounterJefferson [facility] Hospital Evaluation note Note Date & TypeNoteFacilityEvaluation noteNo assessment information available [facility] Work Phone: Evaluation note Note Date & TypeNoteFacilityEvaluation note* Diagnosis Type 2 diabetes mellitus without complication, without long-term current use of insulin ([facility])- 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 Left retinal detachment Unspecified retinal detachment documented in this encounter [facility] Discharge instructions Note Date & TypeNoteFacilityHospital Discharge instructions Additional Instructions DISCHARGE INSTRUCTIONS FOR ANGIOGRAM, ANGIOPLASTY, STENT PLACEMENT FIRST TWO (2) DAYS AFTER DISCHARGE: -Take it easy at home, no strenuous activity. -Do not lift or pull objects over 10 pounds, including children and groceries (10 pounds = 1 gallon milk). -May shower and remove dressing after 24hrs. -No excessive scrubbing of affected groin or arm. -May drive car unless you had sedation for the procedure, then you cannot drive for 24 hours. CALL [facility] OR [facility] AT [phone]: -If excessive bleeding should occur from the puncture site, immediately apply pressure to the site and call 911. -Report any fever, redness, drainage, increased swelling, or firmness at catheter site insertion. Some bruising or slight swelling may be present and this is normal. -Should the arm or leg become cold, numb, white, or blue - go to the nearest emergency room. MEDICATIONS -Follow instructions on the discharge medication sheet regarding your medications. -Do NOT take any Metformin containing medications for the next two days: ActoPlusMet, ActoPlusMet XR, Avandamet, Fortamet, Glucophage, Glucophage XR, Glucovance, Glumetza, Janumet, Janumet XR, Jentadueto, Kombiglyze XR, Metaglip, Metformin, PrandiMet, Riomet. FOLLOW UP/OTHER INSTRUCTIONSCleveland Clinic Hillcrest [facility] Work Phone: Reason for referral (narrative) Note Date & TypeNoteFacilityReason for referral (narrative)No reason for referral information availableOhiohealth Pickerington [facility] Hospital Work Phone: Summary Purpose Family History Relationship Condition Age at Onset Recorded Date/T nam father Presence of cardiac pacemaker Unknown Malignant neoplasmUnknownNot SpecifiedHypertensionUnknown Relationship Condition Age at Onset Recorded Date/T nam father Presence of cardiac pacemaker Unknown Malignant neoplasmUnknownmotherHypertensionUnknown Advance Directives Advance Directive Response Recorded Date/ Time Advance Directives No February 3:00pm Chief Complaint and Reason for Visit Chief Complaint T81.41XA Chief Complaint T81.41XA T81.41XA Chief Complaint Admit Date ref by Eliud Echevarria for PAD, no pulse on CONNIE September 19, 2024 11:07am Chief Complaint Admit Date ref by Eliud Echevarria for PAD, no pulse on CONNIE September 19, 2024 11:07am Peripheral vascular disease September 28 11:18am Reason for Visit Admit Date Peripheral artery disease September 19, 2024 11:07am Chief Complaint Admit Date ref by Eliud Echevarria for PAD, no pulse on CONNIE September 19, 2024 11:07am Peripheral vascular disease September 28 11:18am Hard mass where arteriogram was September 9:49am R60.9 - Edema, unspecified October 10 10:19am Reason for Visit Admit Date Peripheral artery disease September 19, 2024 11:07am Peripheral artery disease October 10 9:49am Chief Complaint Admit Date ref by Eliud Echevarria for PAD, no pulse on CONNIE September 19, 2024 11:07am Peripheral vascular disease September 28 11:18am Hard mass where arteriogram was September 9:49am R60.9 - Edema, unspecified October 10 10:19am I73.9 November 07, 2024 10 :42am 1 month follow up; CONNIE's b/L Legs at 11: 00 November 07, 2024 10:43am Reason for Visit Admit Date Peripheral artery disease September 19, 2024 11:07am Peripheral artery disease October 10 9:49am Peripheral artery disease November 07 10:43am Additional Source Comments (unrecognized sect ion and content) No Status Records FoundNo Status Records FoundNo Status Records Found INFORMATION SOURCE (unrecogn ized section and content) DATE CREATED AUTHOR 09/08/2017 [facility] DATE CREATED AUTHOR AUTHOR'S ORGANIZ ATION 04/11/2024 [facility] DATE CREATED AUTHOR AUTHOR'S ORGANIZ ATION 11/08/2024 [facility] Care Teams (unrecognized sec tion and content) Team Status: Active Member Role Status Dates Eliud Echevarria JR DO Primary Care Provider Active Team Status: Inactive Member Role Status Dates Eliud Echevarria JR DO Primary Care Provider Active Start: September 19, 2024 End: September 19, 2024Stacy Marie ProviderActiveStart: September 19, 2024 End: September 19, 2024 Team Status: Inactive Member Role Status Dates Eliud Echevarria JR DO Primary Care Provider Active Stacy Hidalgo ProviderActiveTeam MemberRelationshipSpecialty Start DateEnd Date Eliud Echevarria MD [address] [place] [address] PCP - GeneralInternal Medicine04/13/23Team MemberRelationshipSpecialtyStart Date End Date Eliud Echevarria MD [address] [place] [address] PCP - GeneralInternal Medicine04/13/23 Team Status: Active Member Role Status Dates Eliud Echevarria JR DO Primary Care Provider Active Start: September 28, 2024 Stacy Marie ProviderActiveStart: September 28, 2024 Yomi Millard MDOther ProviderActiveStart: September 28, 2024 Team Status: Inactive Member Role Status Dates Eliud Echevarria JR DO Primary Care Provider Active Start: October 10, 2024 End: October 10, 2024Caron Crowe DEPUTY HEAD-CAttending ProviderActiveStart: October 10, 2024 End: October 10, 2024 Team Status: Active Member Role Status Dates Yomi Millard MD Attending Provider Active S tart: October 10, 2024 Eliud Echevarria JR Gerry Care ProviderActiveStart: October 10, 2024 Team Status: Inactive Member Role Status Dates Yomi Millard MD Attending Provider Active S tart: October 10, 2024 End: October 10oscar Echevarria JR Gerry Care ProviderActiveStart: October 10, 2024 End: October 10, 2024 Team Status: Inactive Member Role Status Dates Eliud Echevarria JR DO Primary Care Provider Active Start: November 07, 2024 End: November 07, 2024Stacy Marie ProviderActiveStart: November 07, 2024 End: November 07, 2024 Team Status: Inactive Member Role Status Dates Eliud Echevarria JR DO Primary Care Provider Active Start: November 07, 2024 End: November 07, 2024Caron Crowe NP-CAttending ProviderActiveStart: November 07, 2024 End: November 07, 2024 Team Status: Active Member Role Status Dates Eliud Echevarria JR DO Primary Care Provider Active Start: November 07, 2024 Vivian Marieending ProviderActiveStart: November 07, 2024 Goals (unrecognized section and content) Goals may be documented in a n alternate sectionGoals may be documented in an alternate sectionGoals may be documented in an alternate sectionGoals may be documented in an alternate sectionGoals may be documented in an alternate sectionGoals may be documented in an alternate sectionGoals may be documented in an alternate sectionGoals may be documented in an alternate section Reason for Visit (unrecogniz ed section and content) ReasonCommentsDiabetic Eye Exam FOR RECORDS PERTAINING TO PATIENTS [...] BE BASED ON THE PRIMARY CLINICAL RECORDS. [facility]. provides no warranty or guarantee of the accuracy or completeness of information in this document.
--- NOTE | 2025-02-07 16:54 | PC.NURSE ---
[facility] here at bedside talking with pt at this time. pt remains calm and cooperative with staff.
--- NOTE | 2025-02-07 17:17 | ED.GENADUL1 ---
HPI HPI - General Adult General Chief complaint: Psychiatric Symptoms Stated complaint: Self harm evaluation Time Seen by Provider: 02/07/25 15:23 Source: patient and caregiver Mode of arrival: ambulance History of Present Illness HPI narrative: 79-year-old male presented to the emergency department for something he said. 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 He stated that he was going to do something. He was sent here. He denies any thoughts of harming himself and states he did not mean it. This happened just before coming into the emergency department. He has no physical complaints. Related Data Home Medications ?Medication ?Instructions ?Recorded ?Confirmed acetaminophen 500 mg tablet 1,000 mg PO BID 08/20/23 02/07/25 apixaban 5 mg tablet (Eliquis) 5 mg PO Q12H 08/20/23 02/07/25 aspirin 81 mg chewable tablet 81 mg PO DAILY 08/20/23 02/07/25 cholecalciferol (vitamin D3) 50 50 mcg PO DAILY 08/20/23 02/07/25 mcg (2,000 unit) tablet dulaglutide 3 mg/0.5 mL 3 mg subcut .08/20/23 04/27/24 subcutaneous pen injector (Trulicity) duloxetine 60 mg capsule,delayed 60 mg PO DAILY 08/20/23 02/07/25 release dutasteride 0.5 mg capsule 0.5 mg PO DAILY 08/20/23 02/07/25 empagliflozin 10 mg tablet 10 mg PO DAILY 08/20/23 04/27/24 (Jardiance) ezetimibe 10 mg tablet 10 mg PO DAILY 08/20/23 02/07/25 famotidine 40 mg tablet 40 mg PO BEDTIME 08/20/23 02/07/25 mirabegron 50 mg tablet,extended 50 mg PO DAILY 08/20/23 02/07/25 release 24 hr (Myrbetriq) ondansetron HCl 4 mg tablet 4 mg PO Q6H PRN nausea and vomiting 08/20/23 02/07/25 potassium chloride 20 mEq 20 meq PO DAILY 08/20/23 02/07/25 tablet,extended release(part/cryst) quetiapine 50 mg tablet 50 mg PO BEDTIME 08/20/23 02/07/25 rosuvastatin 20 mg tablet 20 mg PO BEDTIME 08/20/23 02/07/25 trazodone 50 mg tablet 25 mg PO BEDTIME 08/20/23 02/07/25 acarbose 100 mg tablet 100 mg PO TID 04/27/24 02/07/25 acetaminophen 325 mg tablet 650 mg PO Q4H PRN fever or pain 04/27/24 02/07/25 albuterol sulfate 90 mcg/actuation 1 puff inhalation Q4H PRN 04/27/24 02/07/25 aerosol inhaler shortness of breath or wheezing baclofen 5 mg tablet 5 mg PO BID PRN muscle spasm 04/27/24 02/07/25 candesartan 32 mg tablet 32 mg PO QAM 04/27/24 04/27/24 diclofenac sodium 1 % topical gel 2 g topical TID PRN pain 04/27/24 02/07/25 empagliflozin 10 mg tablet 10 mg PO DAILY 04/27/24 02/07/25 (Jardiance) nystatin 100,000 unit/gram topical 1 applic topical BID PRN redness 04/27/24 02/07/25 powder olopatadine 0.2 % eye drops 1 drp ophthalmic (eye) Q24H PRN 04/27/24 02/07/25 dry eyes oxybutynin chloride 10 mg 10 mg PO DAILY 04/27/24 02/07/25 tablet,extended release 24 hr azelastine 137 mcg (0.1 %) nasal 2 spray intranasal Q12H 02/07/25 02/07/25 spray Previous Rx's ?Medication ?Instructions ?Recorded metoprolol tartrate 50 mg tablet 50 mg PO BID #60 tabs 04/28/24 Allergies Allergy/AdvReac Type Severity Reaction Status Date / Time No Known Drug Allergies Allergy Verified 02/07/25 15:22 Opioid HPI Opioid Management Most Recent Opioid Data: Last Pain Scale 5 08/20/23, 21:00 Last ORT Total Score 0 04/27/24, 19:02 Last ORT Risk Category Low Risk 04/27/24, 19:02 Review of Systems ROS Narrative A ten point review of systems is negative except as noted above. [facility] Medical History (Updated 02/07/25 @ 17:16 by Thomas Gallo MD) Altered mental status ?R41.82 - Altered mental status, unspecified (ICD-10) Hypertension ?I10 - Essential (primary) hypertension (ICD-10) Hemiparesis affecting left side as late effect of cerebrovascular accident ?I69.354 - Hemiplegia and hemiparesis following cerebral infarction affecting left non-dominant side (ICD-10) H/O: CVA (cerebrovascular accident) ?Z86.73 - Personal history of transient ischemic attack (TIA), and cerebral infarction without residual deficits (ICD-10) Urine retention ?R33.9 - Retention of urine, unspecified (ICD-10) Anxiety ?F41.9 - Anxiety disorder, unspecified (ICD-10) Hyperlipidemia ?E78.5 - Hyperlipidemia, unspecified (ICD-10) Hypertension ?I10 - Essential (primary) hypertension (ICD-10) Diabetes ?E11.9 - Type 2 diabetes mellitus without complications (ICD-10) Coronary artery disease ?I25.10 - Atherosclerotic heart disease of [place] coronary artery without angina pectoris (ICD-10) BPH (benign prostatic hyperplasia) ?N40.0 - Benign prostatic hyperplasia without lower urinary tract symptoms (ICD-10) A-fib ?I48.91 - Unspecified atrial fibrillation (ICD-10) Right-sided cerebrovascular accident (CVA) ?I63.9 - Cerebral infarction, unspecified (ICD-10) Social History Within the past year, how often did you have a drink containing alcohol: never Score interpretation: A score less than 4 is consistent with normal alcohol consumption. Smoking status: Never smoker Non-prescribed substance use: denies use Previous occupational history: retired Highest level of school completed/degree received: high school graduate Little interest or pleasure in doing things: several days Feeling down, depressed, or hopeless: more than half the days Exam Narrative Exam Narrative: Nurses note and vital signs reviewed General:The patient appears well and in no apparent distress.Patient is resting comfortably on cart. Skin:Warm, dry, no pallor noted.There is no rash noted. Head:Normocephalic, atraumatic Eye: Normal conjunctiva, no drainage Ears, Nose, Mouth, and Throat: oral mucosa is moist. Nares patent. Cardiovascular:Regular Rate and Rhythm Respiratory:Patient is in no distress, no accessory muscle use, lungs are clear to auscultation, no wheezing, rales or rhonchi Back:non-tender GI: Soft and nontender Musculoskeletal: The patient has no evidence of calf tenderness, no pitting edema, symmetrical pulses noted bilaterally Neurological:A&O x4, normal speech Psychiatric:Cooperative Constitutional Vital Signs, click to edit/add: Last Vital Signs Temp 98.0 F 02/07/25 15:40 Pulse 71 02/07/25 15:40 Resp 18 02/07/25 15:40 BP 141/86 02/07/25 15:40 Pulse Ox 96 02/07/25 15:40 O2 Del Method Room Air 02/07/25 15:40 Course Vital Signs Vital signs: Vital Signs Temperature 98.0 F 02/07/25 15:40 Pulse Rate 71 02/07/25 15:40 Respiratory Rate 18 02/07/25 15:40 Blood Pressure 141/86 02/07/25 15:40 Pulse Oximetry 96 02/07/25 15:40 Oxygen Delivery Method Room Air 02/07/25 15:40 Temperature 98.0 F 02/07/25 15:40 Pulse Rate 71 02/07/25 15:40 Respiratory Rate 18 02/07/25 15:40 Blood Pressure 141/86 02/07/25 15:40 Pulse Oximetry 96 02/07/25 15:40 Oxygen Delivery Method Room Air 02/07/25 15:40 Medical Decision Making [facility] Narrative Medical decision making narrative: The patient is medically cleared and has been interviewed by mental health services and they have cleared him to go back to [facility]. Differential Diagnosis Differential Diagnosis: Situational anxiety, self-harm thoughts Discharge Plan Discharge Chief Complaint: Psychiatric Symptoms Clinical Impression: Situational anxiety Patient Disposition: Home, Self-Care Time of Disposition Decision: 17:16 Condition: Good Mode of Transportation: Private Vehicle Prescriptions / Home Meds: No Action famotidine 40 mg tablet 40 mg PO BEDTIME potassium chloride 20 mEq tablet,ER particles/crystals 20 meq PO DAILY aspirin 81 mg tablet,chewable 81 mg PO DAILY ezetimibe 10 mg tablet 10 mg PO DAILY dutasteride 0.5 mg capsule 0.5 mg PO DAILY duloxetine 60 mg capsule,delayed release(DR/EC) 60 mg PO DAILY quetiapine 50 mg tablet 50 mg PO BEDTIME trazodone 50 mg tablet 25 mg PO BEDTIME ondansetron HCl 4 mg tablet 4 mg PO Q6H PRN (Reason: nausea and vomiting) rosuvastatin 20 mg tablet 20 mg PO BEDTIME cholecalciferol (vitamin D3) 50 mcg (2,000 unit) tablet 50 mcg PO DAILY mirabegron [Myrbetriq] 50 mg tablet extended release 24 hr 50 mg PO DAILY Eliquis 5 mg tablet 5 mg PO Q12H Jardiance 10 mg tablet 10 mg PO DAILY Trulicity 3 mg/0.5 mL pen injector 3 mg SUBCUT . acetaminophen 500 mg tablet 1,000 mg PO BID acarbose 100 mg tablet 100 mg PO TID acetaminophen 325 mg tablet 650 mg PO Q4H PRN (Reason: fever or pain) albuterol sulfate 90 mcg/actuation HFA aerosol inhaler 1 puff INHALATION Q4H PRN (Reason: shortness of breath or wheezing) candesartan 32 mg tablet 32 mg PO QAM diclofenac sodium 1 % gel 2 g TOPICAL TID PRN (Reason: pain) baclofen 5 mg tablet 5 mg PO BID PRN (Reason: muscle spasm) Jardiance 10 mg tablet 10 mg PO DAILY oxybutynin chloride 10 mg tablet extended release 24hr 10 mg PO DAILY nystatin 100,000 unit/gram powder 1 applic TOPICAL BID PRN (Reason: redness) olopatadine 0.2 % drops 1 drp OPHTHALMIC (EYE) Q24H PRN (Reason: dry eyes) metoprolol tartrate 50 mg Tablet 50 mg PO BID Qty: 60 0RF azelastine 137 mcg (0.1 %) spray,non-aerosol 2 spray INTRANASAL Q12H Print Language: [place] Instructions: Anxiety (ED) Referrals: BOB DENT DO [Primary Care Provider, Family Practice] - 1 week
--- NOTE | 2025-02-07 17:31 | PC.NURSE ---
nursing report called back to [facility]. states no further questions at this time. pt to be discharged back to facility and estimated ETA is approx 1830. nursing staff made aware of ETA of pt returning back to facility.
--- NOTE | 2025-02-07 18:55 | PC.NURSE ---
bedside report given to [facility] transport team. all questions answered. pt denies needs prior to discharge.
== END 2025-02-07 18:57 | disposition home or self-care (01) ==
PROVIDERS: Emergency Provider Emergency Medicine; PCP Internal Medicine
DX: F41.8 Other specified anxiety disorders (principal)
CPT/HCPCS: 99283